=== PATIENT | male | born 1940 | race Caucasian/White ===

== ENCOUNTER 2023-05-12 13:36 | Emergency (ER) | payer MEDICARE, OTHER, SELFPAY ==
[2023-05-12] VITALS (19 sets, daily range): BP systolic 90–145; BP diastolic 47–89; BMI 22.1
[2023-05-12 14:30] LABS: % Basophils 0.2 % (0-2); % Eosinophils 0.3 % (0-6); % Immature Granulocytes 0.4 % (0-0.5); % Lymphocytes 9.1 % (20.5-51.1); % Monocytes 6.8 % (1.7-9.3); % Neutrophils 83.2 % (42.2-75.2); Absolute Immature Granulocytes 0.1 10^3/uL (0-0.05); Absolute Lymphocytes 1.1 10^3/uL (1.2-3.4); Absolute Monocytes 0.8 10^3/uL (0.1-0.6); Absolute Neutrophils 9.7 10^3/uL (1.4-6.5); Hematocrit 47.4 % (39.0-52.0); Hemoglobin 16.5 g/dL (13.0-18.0); Mean Corp Hgb Conc. 34.8 g/dL (33.0-37.0); Mean Corpuscular Hgb 32.7 pg (27.0-31.0); Mean Corpuscular Volume 93.9 fL (80.0-94.0); Mean Platelet Volume 11.9 fL (7.4-10.4); Nucleated Red Blood Cells % 0 % (-); Platelet Count 142 10^3/uL (130-400); Red Blood Cell Count 5.05 10^6/uL (4.70-6.10); Red Cell Dist. Width 13.2 % (11.5-14.5); White Blood Cell Count 11.6 10^3/uL (4.8-10.8)
--- NOTE | 2023-05-12 14:40 | ED.GENMED ---
History of Present Illness
General
Chief Complaint: Heart Rate Problem
Source: patient
Time Seen by Provider: 05/12/23 14:26
Travel History
Have you had any contact with someone who has COVID-19?: No
Do you have any symptoms of coronavirus? Fever > 100 degrees, chills, cough, shortness of breath, sore throat, loss of taste or smell, muscle aches, or headache?: No
History of Present Illness
History of Present Illness:
82-year-old male presents to the emergency room because he feels much more fatigued today than normal. Patient took his blood pressure and pulse at home and observe his heart rate was is 150. Patient went to his primary care doctor's office to get
checked and he was referred to the emergency room. Patient does have a history of atrial fibrillation. He does take Eliquis. He has been cheondoism with his Eliquis and has not missed any doses. Patient denies any chest pain.
Past History
Past History
ED Past Medical History: Cancer, HTN and Hypercholesterolemia
Social History
Tobacco: Non-smoker
Alcohol: None
Drug: None
Personal:
Living: with family
Phy Exam
Physical Exam
Physical Exam:
General: Awake, Alert, Oriented X3. No acute distress.
Vitals: Tachycardic
Head: Atraumatic
Eyes: Pupils equal, EOMI
Throat: Airway intact, no exudates
Neck: Trachea midline
Lungs: Clear and equal b/l
Heart: Tachycardic, regular rate, no murmurs
Abd: Soft, Nontender, No pulsatile mass
Neuro: Nonfocal
Skin: Warm, dry, no rash
Extremities: pulses equal b/l, no edema
Course
Orders/Labs/Results
Orders:
Orders
05/12/23
Electrocardiogram (*1) Stat
Comment: ALREADY DONE
05/12/23 13:53
Electrocardiogram (*1) Urgent
Reason for Study: Atrial Fibrillation
EKG- Treatment ONCE
05/12/23 14:18
Complete Blood Count/With Diff Urgent
Comprehensive Metabolic Panel Urgent
05/12/23 15:18
Propofol [Diprivan] 20 ml .ROUTE .STK-MED
05/12/23 16:41
Propofol [Diprivan] 45 mg IV NOW STA
Abnormal Lab Results
05/12/23
14:18
WBC 11.6 H 10^3/uL
(4.8-10.8)
MCH 32.7 H pg
(27.0-31.0)
MPV 11.9 H fL
(7.4-10.4)
Abs Immat Gran (auto) 0.1 H 10^3/uL
(0-0.05)
Absolute Neuts (auto) 9.7 H 10^3/uL
(1.4-6.5)
Absolute Lymphs (auto) 1.1 L 10^3/uL
(1.2-3.4)
Absolute Monos (auto) 0.8 H 10^3/uL
(0.1-0.6)
Neutrophils % 83.2 H %
(42.2-75.2)
Lymphocytes % 9.1 L %
(20.5-51.1)
Sodium 132 L mmol/L
(135-145)
BUN 24 H mg/dl
(9-20)
Glucose 107 H mg/dl
(70-99)
05/12/23 14:18
05/12/23 14:18
Vital Signs
Initial and Last Documented VS:
Initial Vital Signs
Pulse Resp BP Pulse Ox
146 18 145/89 98
05/12/23 13:50 05/12/23 13:50 05/12/23 13:50 05/12/23 13:50
Last Documented Vital Signs
Temp Pulse Resp BP Pulse Ox
98.5 F 63 9 126/70 97
05/12/23 16:25 05/12/23 18:30 05/12/23 16:10 05/12/23 18:20 05/12/23 18:30
Procedures
Cardioversion
Indication:: Afib
Synchronized?: Yes
Energy Used: 200 joules
Number of attempts: 1
Successful?: Yes
Complications: long post-conversion pause of 6 to 8 seconds, short periods of apnea w/o hypoxia
ASA Risk Score: Class II
Any reaction or bad outcome to prior sedation/anesthesia?: No history of a reaction
Sedation level to be attained: moderate
Chart and allergies reviewed: Yes
Patient reassessed prior to sedation: Yes
Time out completed at (validating right patient & procedure): 15:37
History of difficult intubation: No
Airway free of obstruction: Yes
Patient has a gag reflex: Yes
Patient is able to open mouth: Yes
Patient has no dentures: Yes
Patient has no loose teeth: Yes
Medication administered by Provider during Moderate Sedation: IV Propofol (mg)
Total dose administered: 45
Time drug administered: 15:38
Start Time: 15:37
Stop Time: 15:48
MDM/Problems Addressed
Differential Diagnosis Includes:
Atrial fibrillation, a flutter, sinus tachycardia, ventricular tachycardia
MDM/Problems Addressed:
Patient presents in believe is atrial flutter with rapid ventricular response. Heart rate is hanging right in the 1 45-1 50 range. QRS complexes are wide but he does have a history of a left bundle branch block. Patient has been taking Eliquis
continuously for greater than 2 weeks. Therefore is a good candidate for cardioversion. Patient consented cardioversion. He did have a long pause after a 200 J synchronized defibrillation. He did resume sinus rhythm with frequent PVCs. Patient
noted to have compensatory pauses after each PVC which is a bit long and sometimes this makes it look like he is bradycardic. However over the long-term his heart rate remains in the 50s. Patient able to ambulate without difficulty. Discussed
patient's presentation with cardiology. They feel its appropriate to discharge the patient with close outpatient follow-up. Will maintain metoprolol 12.5 mg.
*Pulse Oximetry
Patient hypoxic: no
*EKG
Interpreted by ED Provider?: Yes
Heart Rate: 146
Rate: tachycardiac
Rhythm: atrial flutter
QRS Pattern: left vent hypertrophy
Ischemia: non-specific ST changes
*Guide Tour Interpretation
Rate: tachycardiac
Interpretation: abnormal
Rhythm: atrial flutter
*Critical Care Note
Total Time (30-74mins, 75-104mins- exclusive of procedures): Not Applicable
ED Attending Note
-
Portions of this chart may have been created with voice recognition software.� Occasional wrong word or��sound alike� substitutions may have occurred due to the inherent limitations of voice recognition software.
Discharge Plan
Departure
Patient Disposition: Home (Routine Discharge)
Date of Disposition: 05/12/23
Time of Disposition: 18:45
Patient with high blood pressure during this ER visit?: Yes
Condition: Good
Discharge Problem:
Paroxysmal A-fib
Instructions: Atrial Fibrillation (DC), Chest Pain DCA Follow Up
Prescriptions:
No Action
atorvastatin 20 mg tablet
20 mg PO DAILY
therapeutic multivitamin Tablet
1 tab PO DAILY
ascorbic acid (vitamin C) [Vitamin C] 500 mg Tablet
500 mg PO DAILY
vitamin B complex Tablet
1 tab PO DAILY
cholecalciferol (vitamin D3) [Vitamin D3] 25 mcg (1,000 unit) Tablet
25 mcg PO DAILY
Eliquis 5 mg Tablet
5 mg PO BID Qty: 60 0RF
Patient Comments:
05/12/2023, pt. gets samples from their PCP.
lisinopril 5 mg Tablet
5 mg PO DAILY
metoprolol succinate 25 mg tablet extended release 24 hr
12.5 mg PO DAILY
Referrals:
Chano Gaxiola MD [Family Provider] -
Interventions
Interventions:
*Risk Screen - Suicide Last Done: 05/12/23 13:53
*General Assessment Last Done: 05/12/23 13:53
*Neglect/Abuse Screening Last Done: 05/12/23 13:53
ED- Fall Risk Assessment Last Done: 05/12/23 14:15
*ED COVID-19 Vaccine History Last Done: 05/12/23 13:53
ED- Cardiac Assessment Last Done: 05/12/23 14:16
ED- Pulmonary Assessment Last Done: 05/12/23 14:16
[2023-05-12 14:41] LABS: ALT (SGPT) 19 U/L (0-50); AST (SGOT) 29 U/L (17-59); Albumin 4.6 g/dl (3.5-5.0); Alkaline Phosphatase 69 U/L (38-126); Blood Urea Nitrogen 24 mg/dl (9-20); Calcium 9.4 mg/dl (8.4-10.2); Carbon Dioxide 23 mmol/L (22-30); Chloride 102 mmol/L (98-107); Estimated Creatinine Clearance 46 ml/min; Glucose 107 mg/dl (70-99); Potassium 4.8 mmol/L (3.5-5.1); Sodium 132 mmol/L (135-145); Total Bilirubin 1.1 mg/dl (0.2-1.3); Total Protein 7.2 g/dl (6.3-8.2); eGFR 55.53
[2023-05-12] MEDS: DIPRIVAN 45 MG IV (15:38)
== END 2023-05-12 19:27 | disposition home or self-care (01) ==
LOC: EMR 13:36
PROVIDERS: Emergency Medicine; EMERGENCY PHYSICIAN Emergency Medicine; FAMILY PHYSICIAN Internal Medicine Geriatric Medicine
DX: I48.0 Paroxysmal atrial fibrillation (principal); I10 Essential (primary) hypertension; E78.00 Pure hypercholesterolemia, unspecified; I48.92 Unspecified atrial flutter; Z79.01 Long term (current) use of anticoagulants
CPT/HCPCS: 99283; 92960; 96374; 80053; 85025; 93005

== ENCOUNTER 2023-06-04 07:42 | Emergency (ER) | payer MEDICARE, OTHER, SELFPAY ==
[2023-06-04] VITALS (23 sets, daily range): BP systolic 94–147; BP diastolic 50–99
--- NOTE | 2023-06-04 08:09 | ED.GENMED ---
History of Present Illness
General
Chief Complaint: Weakness
Source: patient and records
Exam Limitations: none
Time Seen by Provider: 06/04/23 07:56
Nursing documentation reviewed up to this point in time: agreed with
Travel History
Have you had any contact with someone who has COVID-19?: No
Do you have any symptoms of coronavirus? Fever > 100 degrees, chills, cough, shortness of breath, sore throat, loss of taste or smell, muscle aches, or headache?: No
History of Present Illness
History of Present Illness:
Patient is an 82-year-old male who presents to the emergency department feeling fatigued with shortness of breath and not able to sleep last night. About a week ago the patient noticed some shortness of breath and spoke with his traffic expert and
was put on a monitor. Patient does have a history of atrial fibrillation and required to be cardioverted in the past. Patient has been compliant with his Eliquis. Patient denies any chest pain but does admit to some indigestion. Patient denies
fever or chills, nasal congestion, sore throat or cough. Patient denies any abdominal pain, nausea, vomiting or diarrhea. Patient denies any recent illnesses or injuries. Patient has a appointment with his traffic expert on June 12. Patient noted
his heart rate was in the 150s this morning.
Past History
Past History
ED Past Medical History: Arrthythmia (Atrial fibrillation), Cancer (Prostate), HTN and Hypercholesterolemia
Social History
Tobacco: Non-smoker
Alcohol: None
Drug: None
Personal:
Living: with family
Review of Systems
Review of Systems
All Other Systems: ROS reviewed and negative except as documented in HPI and ROS
Constitutional: Reports fatigue; Denies fever or chills
EENT: Reports no symptoms
Respiratory: Reports trouble breathing; Denies cough
Cardiac: Reports palpitations; Denies chest pain, diaphoresis or syncope
ABD/GI: Reports no symptoms
: Reports no symptoms
Musculoskeletal: Reports no symptoms
Skin: Reports no symptoms
Neurological: Reports no symptoms
Hematologic/Lymphatic: Reports no symptoms
Phy Exam
Physical Exam
Physical Exam:
Physical Exam
General: mild distress, alert and appropriate, well nourished, well hydrated
HENT: Normocephalic, supple with no lymphadenopathy, no thyromegaly
Eyes: Clear sclera, conjuctiva without injection
Heart: irregular irregular rhythm and tachycardic rate. No S3, S4. No murmur. No NVD
Lungs: No respiratory distress, no stridor, lung sounds clear and equal bilaterally, chest wall symmetrical and nontender
Abdomen: Soft, nontender, BS good
Neuro: Alert and oriented x 3, CN II - XII intact, no motor focality, no cerebellar dysfunction
Skin: no rash
Psychiatric: well kept. interactive and cooperative
Extremities: No edema, cyanosis, tenderness, Good and equal peripheral pulses.
Scores
Heart Failure Risk
Heart Failure Risk Score: Not Applicable
Heart Score for Chest Pain Patients
STEMI patient?: Not applicable
Withdrawal Assessment of Alcohol
Withdrawal Assessment Completed?: Not applicable
Course
Orders/Labs/Results
Orders:
Orders
06/04/23 07:50
EKG [Electrocardiogram (*1)] Urgent
Reason for Study: Atrial Fibrillation
EKG- Treatment ONCE
06/04/23 08:39
Complete Blood Count/With Diff Urgent
Comprehensive Metabolic Panel Urgent
06/04/23 08:46
Propofol [Diprivan] 20 ml .ROUTE .STK-MED
06/04/23 09:14
Electrocardiogram (*1) Urgent
Reason for Study: Other
Other Reason for Exam: s/p cardioversion
06/04/23 09:15
EKG- Treatment ONCE
Abnormal Lab Results
06/04/23
08:39
RBC 4.65 L 10^6/uL
(4.70-6.10)
MCV 95.1 H fL
(80.0-94.0)
MCH 32.0 H pg
(27.0-31.0)
Plt Count 124 L 10^3/uL
(130-400)
MPV 13.0 H fL
(7.4-10.4)
Absolute Neuts (auto) 7.2 H 10^3/uL
(1.4-6.5)
Absolute Lymphs (auto) 0.6 L 10^3/uL
(1.2-3.4)
Neutrophils % 86.8 H %
(42.2-75.2)
Lymphocytes % 7.6 L %
(20.5-51.1)
Sodium 131 L mmol/L
(135-145)
Carbon Dioxide 17 L mmol/L
(22-30)
BUN 25 H mg/dl
(9-20)
Glucose 130 H mg/dl
(70-99)
06/04/23 08:39
06/04/23 08:39
Vital Signs
Initial and Last Documented VS:
Initial Vital Signs
Temp Pulse Resp BP Pulse Ox
98.2 F 131 16 147/99 98
06/04/23 07:47 06/04/23 07:47 06/04/23 07:47 06/04/23 07:47 06/04/23 07:47
Last Documented Vital Signs
Temp Pulse Resp BP Pulse Ox
98.8 F 79 17 115/77 98
06/04/23 10:43 06/04/23 10:35 06/04/23 10:35 06/04/23 10:35 06/04/23 10:35
Procedures
Cardioversion
Indication:: Afib
Performed by:: adriana
Synchronized?: Yes
Energy Used: 150 joules
Number of attempts: 1
Successful?: Yes
Complications: none
ASA Risk Score: Class III
Any reaction or bad outcome to prior sedation/anesthesia?: No history of a reaction
Sedation level to be attained: deep
Chart and allergies reviewed: Yes
Patient reassessed prior to sedation: Yes
Time out completed at (validating right patient & procedure): 09:09
History of difficult intubation: No
Airway free of obstruction: Yes
Patient has a gag reflex: Yes
Patient is able to open mouth: Yes
Patient has no dentures: Yes
Patient has no loose teeth: Yes
Medication administered by Provider during Moderate Sedation: IV Propofol (mg)
Total dose administered: 50
Time drug administered: 09:09
Start Time: 09:09
Stop Time: 09:19
*Radiology
Radiology exam reviewed: other (nsr)
*Pulse Oximetry
Patient hypoxic: no
*EKG
Interpreted by ED Provider?: Yes
EKG Intrepretation Date: 06/04/23
EKG Intrepretation Time: 08:15
Interpretation: abnormal
Comparison EKG: changes noted
Heart Rate: 146
Rate: tachycardiac
Rhythm: a-fib
[place]: left axis deviation
Interval: normal QT interval
QRS Pattern: left bundle branch block
Ischemia: non-specific ST changes
*Food Service Representative Interpretation
Rate: tachycardiac
Interpretation: abnormal
Heart Rate: 146
Rhythm: a-fib
*Critical Care Note
Total Time (30-74mins, 75-104mins- exclusive of procedures): Not Applicable
Update Note
Update Note:
Repeat EKG shows sinus rhythm with PACs. Patient will be discharged to follow-up with his traffic expert as scheduled.
ED Attending Note
-
Portions of this chart may have been created with voice recognition software.� Occasional wrong word or��sound alike� substitutions may have occurred due to the inherent limitations of voice recognition software.
Discharge Plan
Departure
Patient Disposition: Home (Routine Discharge)
Date of Disposition: 06/04/23
Time of Disposition: 09:23
Patient with high blood pressure during this ER visit?: No
Condition: Good
Covid-19: Not Applicable
Discharge Problem:
Atrial fibrillation with rapid ventricular response, Encounter for cardioversion procedure
Instructions: Atrial Fibrillation (DC), Cardioversion (DC), MODERATE SEDATION ADULT
Prescriptions:
No Action
atorvastatin 20 mg tablet
20 mg PO DAILY
therapeutic multivitamin Tablet
1 tab PO DAILY
ascorbic acid (vitamin C) [Vitamin C] 500 mg Tablet
500 mg PO DAILY
vitamin B complex Tablet
1 tab PO DAILY
cholecalciferol (vitamin D3) [Vitamin D3] 25 mcg (1,000 unit) Tablet
25 mcg PO DAILY
Eliquis 5 mg Tablet
5 mg PO BID Qty: 60 0RF
Patient Comments:
05/12/2023, pt. gets samples from their PCP.
lisinopril 5 mg Tablet
5 mg PO DAILY
metoprolol succinate 25 mg tablet extended release 24 hr
12.5 mg PO DAILY
Referrals:
Ramiro Burks MD [Active] - Keep scheduled appt
Chano Gaxiola MD [Family Provider] - As needed
Activity Restrictions/Additional Instructions:
Continue present medications and therapy
Interventions
Interventions:
*Risk Screen - Suicide Last Done: 06/04/23 07:47
*General Assessment Last Done: 06/04/23 07:47
*Neglect/Abuse Screening Last Done: 06/04/23 07:47
ED- Fall Risk Assessment Last Done: 06/04/23 08:45
*ED COVID-19 Vaccine History Last Done: 06/04/23 08:45
*Nursing Disposition Last Done: 06/04/23 11:12
ED- Cardiac Assessment Last Done: 06/04/23 08:45
ED- Neurological Assessment Last Done: 06/04/23 11:13
ED- Pulmonary Assessment Last Done: 06/04/23 08:45
Discharge Date and Time
Discharge Date/Time: 06/04/23 11:13
Print Language: MALIAN
[2023-06-04 08:59] LABS: % Basophils 0.1 % (0-2); % Eosinophils 0.1 % (0-6); % Immature Granulocytes 0.4 % (0-0.5); % Lymphocytes 7.6 % (20.5-51.1); % Neutrophils 86.8 % (42.2-75.2); Absolute Lymphocytes 0.6 10^3/uL (1.2-3.4); Absolute Monocytes 0.4 10^3/uL (0.1-0.6); Absolute Neutrophils 7.2 10^3/uL (1.4-6.5); Hematocrit 44.2 % (39.0-52.0); Hemoglobin 14.9 g/dL (13.0-18.0); Mean Corp Hgb Conc. 33.7 g/dL (33.0-37.0); Mean Corpuscular Volume 95.1 fL (80.0-94.0); Nucleated Red Blood Cells % 0 % (-); Platelet Count 124 10^3/uL (130-400); Red Blood Cell Count 4.65 10^6/uL (4.70-6.10); Red Cell Dist. Width 13.4 % (11.5-14.5); White Blood Cell Count 8.3 10^3/uL (4.8-10.8)
[2023-06-04 09:08] LABS: ALT (SGPT) 44 U/L (0-50); AST (SGOT) 35 U/L (17-59); Albumin 4.2 g/dl (3.5-5.0); Alkaline Phosphatase 64 U/L (38-126); Blood Urea Nitrogen 25 mg/dl (9-20); Calcium 9.3 mg/dl (8.4-10.2); Carbon Dioxide 17 mmol/L (22-30); Chloride 105 mmol/L (98-107); Glucose 130 mg/dl (70-99); Potassium 4.4 mmol/L (3.5-5.1); Sodium 131 mmol/L (135-145); Total Bilirubin 1.3 mg/dl (0.2-1.3); Total Protein 6.6 g/dl (6.3-8.2); eGFR > 60.00
== END 2023-06-04 11:13 | disposition home or self-care (01) ==
LOC: EMR 07:42
PROVIDERS: EMERGENCY PHYSICIAN Emergency Medicine; FAMILY PHYSICIAN Internal Medicine Geriatric Medicine
DX: I48.91 Unspecified atrial fibrillation (principal); I10 Essential (primary) hypertension; E78.00 Pure hypercholesterolemia, unspecified; Z79.01 Long term (current) use of anticoagulants
CPT/HCPCS: 99283; 92960; 80053; 85025; 93005

== ENCOUNTER → 2023-10-04 10:15 | Outpatient (REF) | payer MEDICARE, OTHER, SELFPAY ==
[2023-10-04 10:49] LABS: % Basophils 0.3 % (0-2); % Eosinophils 1.2 % (0-6); % Immature Granulocytes 0.2 % (0-0.5); % Lymphocytes 17.9 % (20.5-51.1); % Monocytes 8.8 % (1.7-9.3); % Neutrophils 71.6 % (42.2-75.2); Absolute Eosinophils 0.1 10^3/uL (0-0.7); Absolute Lymphocytes 1.1 10^3/uL (1.2-3.4); Absolute Monocytes 0.5 10^3/uL (0.1-0.6); Absolute Neutrophils 4.3 10^3/uL (1.4-6.5); Hematocrit 41.9 % (39.0-52.0); Hemoglobin 14.6 g/dL (13.0-18.0); Mean Corp Hgb Conc. 34.8 g/dL (33.0-37.0); Mean Corpuscular Hgb 31.9 pg (27.0-31.0); Mean Corpuscular Volume 91.7 fL (80.0-94.0); Mean Platelet Volume 12.1 fL (7.4-10.4); Nucleated Red Blood Cells % 0 % (-); Platelet Count 136 10^3/uL (130-400); Red Blood Cell Count 4.57 10^6/uL (4.70-6.10)
[2023-10-04 11:00] LABS: INR 1.26; PT 15.7 Sec (11.4-14.6)
[2023-10-04 11:04] LABS: ALT (SGPT) 19 U/L (0-50); AST (SGOT) 29 U/L (17-59); Albumin 4.7 g/dl (3.5-5.0); Alkaline Phosphatase 61 U/L (38-126); Blood Urea Nitrogen 17 mg/dl (9-20); Calcium 9.4 mg/dl (8.4-10.2); Carbon Dioxide 29 mmol/L (22-30); Chloride 99 mmol/L (98-107); Glucose 90 mg/dl (70-99); Magnesium 1.9 mg/dl (1.6-2.3); Potassium 4.4 mmol/L (3.5-5.1); Sodium 135 mmol/L (135-145); Total Bilirubin 1.3 mg/dl (0.2-1.3); eGFR > 60.00
== END ==
LOC: SDSPAT 10:15
PROVIDERS: ATTENDING PHYSICIAN Internal Medicine Cardiovascular Disease; FAMILY PHYSICIAN Internal Medicine Geriatric Medicine; OTHER PHYSICIAN Internal Medicine Cardiovascular Disease
DX: Z01.818 Encounter for other preprocedural examination (principal); I48.0 Paroxysmal atrial fibrillation
CPT/HCPCS: 36415; 75572; 80053; 83735; 85025; 85610; 86850; 86900; 86901; 93005; Q9967

== ENCOUNTER 2023-10-19 08:32 | Day surgery (SDC) | payer MEDICARE, OTHER, SELFPAY ==
[2023-10-04 10:25] VITALS: BMI 22.6
[2023-10-19] VITALS (10 sets, daily range): BP systolic 120–144; BP diastolic 47–59
--- NOTE | 2023-10-19 11:45 | ITS.CL.ABL ---
Registered Nurse Nursery - Ablation
Ablation
Procedure Report:
Primary Car Painter: Ramiro Burks MD
Procedure Date: 10/19/2023
Patient History:
Patient is a pleasant 82-year-old male with past medical history significant for sleep apnea, hypercholesterolemia, low bundle-branch block, hypertension, mitral valve insufficiency, aortic valve insufficiency, asymptomatic bradycardia, diastolic
heart failure, paroxysmal symptomatic atrial fibrillation.
See H&P for complete details.
Indication:
Symptomatic paroxysmal atrial fibrillation
Early recurrence of AF following cardioversion x 3
Arrhythmia Specific History:
Prior Medical Therapies for Rate and Rhythm Control:
X Beta-myron
[ ] Calcium channel-myron
[ ] Amiodarone
[ ] Dronederone
[ ] Sotalol
[ ] Flecainide
[ ] Dofetilide
X Options limited by bradycardia
[ ] Options limited by comorbid renal disease
Prior Procedural Therapies for AF/AFL:
X Cardioversion
[ ] Pulmonary Vein Isolation
[ ] Posterior Wall Isolation
[ ] Additional lines (Specify)
[ ] Surgical Valerio-MAZE or PVI (Specify)
Procedure Performed:
[ ] AF ablation procedure (36959) -- includes LA/CS pacing, trans-septal, 3D mapping, + ICE
[ ] +IV drug (47988)
[ ] +Other Arrhythmia (24447)
[ ] +Other AF Line/ablation (15059)
Additional invoice machine operator: Dr Kane Burton
Risks and expected recovery has been explained in detail. Alternative options have been explored, and in a shared-decision making fashion we have decided that this was the most appropriate procedure.
Method
NPO status confirmed. Grounding pad applied. Defibrillator pads applied. Continuous surface ECG, pulse oximetry, and blood pressure were monitored. Procedure was performed under general anesthesia, with anesthesia services.
Both groins were clipped, prepped with Chloraprep, and draped in sterile fashion. Time out was called. Local anesthesia administered with bupivacaine. The right and left femoral veins were accessed for catheter placement, using ultrasound guidance,
micro-puncture needle/wire, and modified seldinger technique. 3 sheaths were placed. The following catheters were used:
[ ] Tacticath SE (D/F Curve) ablation catheter
X Viewflex 9Fr ICE catheter
X Inquiry decapolar 6Fr diagnostic catheter
[ ] CRD Hex 6Fr
[ ] [employer] Front Advance Cryoballoon ([ ]28mm[ ]23mm)
[ ] Achieve Advance mapping catheter ([ ]15mm[ ]20mm)
X FlexCath Contour 10 Fr with PulseSelect PFA Catheter
X Advisor HD Grid Mapping Catheter, SE
[ ] [employer] AcuNav 8 Fr ICE catheter
[ ]Other: [ ]
Intracardiac ultrasound (ICE) was carefully advanced into the right atrium to guide sheath placement over a J-wire, catheter placement, guide trans-septal puncture, identify potential complications, identify anatomic structures and ensure proper
contact between ablation catheter and tissue. A trace pericardial effusion was noted in the posterior/basal portion of the LV at the start of the procedure. This remained unchanged through the entirety of the case and at completion.
Heparin was given prior to trans-septal puncture. Heparin was given to achieve and maintain a target ACT of 300-400 seconds throughout the procedure.
Trans-septal access was performed under ICE guidance. The trans-septal puncture was performed with a SafeSept wire through a Brockenbrough needle assembly through the steerable sheath. The wire was visualized as it entered the LSPV and system
advanced under ICE guidance and fluoroscopy into the LA. The Brockenbrough needle assembly, SafeSept wire and sheath dilator were removed under negative pressure. LA pressure was measured and recorded.
ICE and 3D mapping was performed to identify relevant cardiac structures. A careful 3D map was created to assess for regions of low-voltage and abnormal electrogram signals using HD grid mapping catheter and PulseSelect catheter. Additional mapping
was performed as outlined below.
Prior to ablation, glycopyrrolate was provided. PulseSelect catheter was advanced over J-wire to the ostium of each vein. Pulmonary vein isolation was performed with ostial and antral lesions in a circumferential manner. Contact was visualized via
EAM, ICE, fluoroscopy, and EGM signals. Following completion of ablation lesions, a post-ablation voltage/activation map was performed in sinus rhythm. Entrance and exit block were confirmed for each vein. During baseline electrophysiology study,
patient was noted with to develop an AT. Entrainment attempted however the arrhythmia degenerated into likely AF. Sinus rhythm was restored with a 200J synchronized DCCV. There was no recurrence of arrhythmia for the remainder of the procedure.
Catheter and sheath were removed from the left atrium and post-ablation intracardiac echo evaluation was consistent with pre-ablation with no changes and no pericardial effusion and there is no left atrial thrombus or left ventricle thrombus seen.
Electrophysiology study was performed. Hemostasis was obtained with figure of 8 stitch for each groin and with manual pressure. Protamine was used for reversal.
Estimated Blood Loss
5 mL
Complications
None
Fluoroscopy: 3.4 minutes; 6.9 mGy
Baseline Intervals:
Rhythm: SB
KY: 148 ms
QRS: 202 ms
QT: 557 ms
A-A: 1327 ms
R-R: 1327 ms
Post-Procedure Intervals:
[place]: 148 ms
QRS: 202 ms
QT: 547 ms
AVWB: 330 ms
Recommendations
- Bedrest with straight-leg precautions as ordered
- Anticipate same day discharge if patient meeting clinical metrics
- Resume home medications as indicated
- Ok to resume anticoagulation tonight if patient and groin sites stable
- PPI daily for 30 days
- Plan for follow-up in office with Dr Burks
Trey Diego DO
Clinical Cardiac Injection Moulding Machine Operator
cc: Ramiro Burks MD; Chano Gaxiola MD
[2023-10-19 13:10] LABS: ACT-LR - POC 374 Seconds (116-155)
[2023-10-19 13:30] LABS: ACT-LR - POC 384 Seconds (116-155)
[2023-10-19 14:12] LABS: ACT-LR - POC 165 Seconds (116-155)
--- NOTE | 2023-10-19 16:53 | W.PN.UPDATE ---
Update Note
Progress Note Update
82 yo WM s/p PVI (same day). He feels good, no cp, sob, gracia clears, b/l groins F08 intact, EKG SB with PVC's and LBBB. He will continue OAC Eliquis dose at 8pm at home. He will continue metoprolol and will add PPI for 30 days. Activity restrictions
reviewed. He will f/u Dr. Burks in 2 mo. He is for d/c home after 7pm if groins stable and voiding.
[2023-10-20 12:51] LABS: ACT-LR - POC > 397 Seconds (116-155)
== END 2023-10-19 18:53 | disposition home or self-care (01) ==
LOC: CATH 08:32
PROVIDERS: ATTENDING PHYSICIAN Internal Medicine Cardiovascular Disease; FAMILY PHYSICIAN Internal Medicine Geriatric Medicine; OTHER PHYSICIAN Internal Medicine Cardiovascular Disease
DX: I48.0 Paroxysmal atrial fibrillation (principal); I08.0 Rheumatic disorders of both mitral and aortic valves; I11.0 Hypertensive heart disease with heart failure; I50.32 Chronic diastolic (congestive) heart failure; I44.7 Left bundle-branch block, unspecified; E78.00 Pure hypercholesterolemia, unspecified; G47.33 Obstructive sleep apnea (adult) (pediatric); Z85.46 Personal history of malignant neoplasm of prostate; Z79.01 Long term (current) use of anticoagulants
CPT/HCPCS: C1732; C1894; C1733; C1769; C1766; C1759; 76937; 85347; 86900; 86901; 93005; 93656

== ENCOUNTER → 2024-01-18 16:08 | Outpatient (REF) | payer MEDICARE, OTHER, SELFPAY | LOC: RAD 16:08 | PROVIDERS: ATTENDING PHYSICIAN Nurse Practitioner Family | DX: M25.552 Pain in left hip (principal) | CPT/HCPCS: 73523 ==

== ENCOUNTER 2024-01-25 12:58 | Inpatient (IN) | payer MEDICARE, OTHER, SELFPAY ==
[2024-01-25] VITALS (27 sets, daily range): BP systolic 104–146; BP diastolic 62–92; PULSE 95; BMI 20.9
--- NOTE | 2024-01-25 09:25 | ED.GENMED ---
History of Present Illness
General
Chief Complaint: Heart Rate Problem
Source: patient
Exam Limitations: none
Time Seen by Provider: 01/25/24 09:09
Nursing documentation reviewed up to this point in time: agreed with
History of Present Illness
History of Present Illness:
83-year-old male presents emergency department due to heart racing. He has noticed that since last night. He has a history of atrial fibrillation, and had an ablation in October. He notes he had a dental procedure, tooth extraction last week and
was off Eliquis for 5 days.
Past History
Past History
ED Past Medical History: Arrthythmia (Atrial fibrillation), Cancer (Prostate), HTN and Hypercholesterolemia
ED Past Surgical History: Cardiac (Cardiac ablation)
Social History
Tobacco: Non-smoker
Alcohol: None
Drug: None
Personal:
Living: with family
Review of Systems
Review of Systems
Allergies reviewed?: Yes
All Other Systems: Not applicable
Constitutional: Reports no symptoms
EENT: Reports no symptoms
Respiratory: Reports no symptoms
Cardiac: Reports palpitations
ABD/GI: Reports no symptoms
: Reports no symptoms
Musculoskeletal: Reports no symptoms
Skin: Reports no symptoms
Neurological: Reports no symptoms
Endocrine: Reports no symptoms
Hematologic/Lymphatic: Reports no symptoms
Psychiatric: Reports no symptoms
Phy Exam
Physical Exam
Physical Exam:
Physical Exam
General: no apparent distress, not acutely ill
Neck: supple. no meningeal signs. normal posterior pharynx
Heart: s1/s2 tachycardia, no murmur. equal radial
pulses.
HEENT: Pupils equal round reactive to light, EOMI
Lungs: no acute respiratory distress. clear bilaterally
Abdomen: normal bowel sounds. not tender. no CVAT
Neuro: alert and oriented. no focal neurological deficits cranial nerves II through XII intact
Skin: no rash
Psychiatric: well kept. interactive and cooperative
Extremities: no edema. no calf tenderness. negative homans. good distal pulses
Course
Orders/Labs/Results
Orders:
Orders
01/25/24 08:56
Electrocardiogram (*1) Urgent
Reason for Study: Chest Pain
EKG- Treatment ONCE
01/25/24 09:20
IV Insert/Care/Rem.- Treatment PRN
01/25/24 09:23
Complete Blood Count/With Diff Urgent
Comprehensive Metabolic Panel Urgent
Magnesium Urgent
TSH Urgent
01/25/24 09:24
Diltiazem 125 mg/125 ml Nss [Cardizem] 125 mg in 125 ml IV NOW
Initial dose in mg/hr, then titrate:: 5
Titrate to keep:: Heart rate 80-100 bpm
Titrate by mg/hr:: 5 mg/hr
Frequency of titrations (minutes):: 15
Maximum dose in mg/hr:: 15
Diltiazem HCl [Cardizem] 5 mg IV NOW STA
Abnormal Lab Results
01/25/24
09:23
RBC 4.54 L 10^6/uL
(4.70-6.10)
MCH 32.4 H pg
(27.0-31.0)
MPV 12.0 H fL
(7.4-10.4)
Neutrophils % 77.6 H %
(42.2-75.2)
Lymphocytes % 15.5 L %
(20.5-51.1)
Sodium 134 L mmol/L
(135-145)
Carbon Dioxide 19 L mmol/L
(22-30)
Glucose 160 H mg/dl
(70-99)
01/25/24 09:23
01/25/24 09:23
Vital Signs
Initial and Last Documented VS:
Initial Vital Signs
Pulse Resp BP Pulse Ox
129 18 146/92 96
01/25/24 09:01 01/25/24 09:01 01/25/24 09:01 01/25/24 09:01
Last Documented Vital Signs
Temp Pulse Resp BP Pulse Ox
98.9 F 79 15 115/63 95
01/25/24 09:34 01/25/24 10:15 01/25/24 10:15 01/25/24 10:10 01/25/24 10:15
MDM/Problems Addressed
Differential Diagnosis Includes:
Atrial fibrillation, atrial flutter
MDM/Problems Addressed:
83-year-old male with rapid atrial flutter. Patient is not a candidate for cardioversion as he stopped his Eliquis last week for 5 days.
Chronic conditions affecting care: Arrhythmia
Acute Exacerbation and/or Progression of Chronic Illness: Arrhythmia
*Pulse Oximetry
Patient hypoxic: no
*EKG
Interpreted by ED Provider?: Yes
EKG Intrepretation Date: 01/25/24
EKG Intrepretation Time: 09:00
Interpretation: abnormal
Comparison EKG: changes noted
Heart Rate: 126
Rate: tachycardiac
Rhythm: atrial flutter
Valders: normal axis
Interval: normal interval
QRS Pattern: normal QRS
Ischemia: no ischemia
*Manager Msw Interpretation
Rate: tachycardiac
Interpretation: abnormal
Heart Rate: 126
Rhythm: atrial flutter
*Critical Care Note
Total Time (30-74mins, 75-104mins- exclusive of procedures): 30
comment:
Critical care statement: A total of 30 minutes of critical care time was provided for this patient. This includes management of unstable vital signs, evaluation of the patient at bedside, reviewing the patient's pertinent medical records, discussion
with consultants, review of old EKGs and review of pertinent medical records. This time with separate from time utilized to perform the aforementioned documented procedures
Data Reviewed
Review of Other/Old Records Reveals: Operative Reports (Cardiac ablation by Dr. Mchugh October 2023)
Source: records
Patient Management
Social determinants of health affecting care: Living situation and Strong social support
Discussion with other providers: Hospitalist
Escalation/DeEscalation of care consider admission/obs:
Admit indicated
Update Note
Update Note:
Monitor now appears rapid atrial fibrillation. Continue diltiazem. Admit to hospitalist.
ED Attending Note
-
Portions of this chart may have been created with voice recognition software.� Occasional wrong word or��sound alike� substitutions may have occurred due to the inherent limitations of voice recognition software.
Discharge Plan
Departure
Patient Disposition: Admit
Date of Disposition: 01/25/24
Time of Disposition: 10:21
Admit to: IVU
Presentation/result/management discussed w/ accepting MD/DO: Hospitalist
Patient with high blood pressure during this ER visit?: Yes
Condition: Fair
Discharge Problem:
Atrial fibrillation with rapid ventricular response
Prescriptions:
No Action
atorvastatin 20 mg tablet
20 mg PO DAILY
therapeutic multivitamin Tablet
1 tab PO DAILY
ascorbic acid (vitamin C) [Vitamin C] 500 mg Tablet
500 mg PO DAILY
vitamin B complex Tablet
1 tab PO DAILY
cholecalciferol (vitamin D3) [Vitamin D3] 25 mcg (1,000 unit) Tablet
25 mcg PO DAILY
lisinopril 5 mg Tablet
5 mg PO DAILY
metoprolol succinate 25 mg tablet extended release 24 hr
12.5 mg PO HS
coenzyme Q10 [CoQ-10] 100 mg Capsule
100 mg PO DAILY
amoxicillin 500 mg Capsule
500 mg PO TID
acetaminophen [Tylenol] 325 mg Tablet
650 mg PO QIDPRN PRN (Reason: mild pain )
pantoprazole [Protonix] 40 mg tablet,delayed release (DR/EC)
40 mg PO DAILY
Eliquis 5 mg tablet
5 mg PO BID
Patient Comments:
01/25/24- pt. gets samples from their PCP.
Referrals:
Chano Gaxiola MD [Family Provider] -
Interventions
Interventions:
*Risk Screen - Suicide Last Done: 01/25/24 09:01
*General Assessment Last Done: 01/25/24 09:01
*Neglect/Abuse Screening Last Done: 01/25/24 09:01
ED- Fall Risk Assessment Last Done: 01/25/24 09:33
*ED COVID-19 Vaccine History Last Done: 01/25/24 09:01
ED- Cardiac Assessment Last Done: 01/25/24 09:33
ED- Pulmonary Assessment Last Done: 01/25/24 09:33
Discharge Date and Time
Print Language: FAROESE
[2024-01-25 09:31] LABS: % Basophils 0.1 % (0-2); % Eosinophils 0.4 % (0-6); % Immature Granulocytes 0.3 % (0-0.5); % Lymphocytes 15.5 % (20.5-51.1); % Monocytes 6.1 % (1.7-9.3); % Neutrophils 77.6 % (42.2-75.2); Absolute Lymphocytes 1.2 10^3/uL (1.2-3.4); Absolute Monocytes 0.5 10^3/uL (0.1-0.6); Absolute Neutrophils 5.9 10^3/uL (1.4-6.5); Hematocrit 42.6 % (39.0-52.0); Hemoglobin 14.7 g/dL (13.0-18.0); Mean Corp Hgb Conc. 34.5 g/dL (33.0-37.0); Mean Corpuscular Hgb 32.4 pg (27.0-31.0); Mean Corpuscular Volume 93.8 fL (80.0-94.0); Nucleated Red Blood Cells % 0 % (-); Platelet Count 149 10^3/uL (130-400); Red Blood Cell Count 4.54 10^6/uL (4.70-6.10); Red Cell Dist. Width 13.5 % (11.5-14.5); White Blood Cell Count 7.6 10^3/uL (4.8-10.8)
[2024-01-25] MEDS: CARDIZEM 5 MG IV (09:40)
[2024-01-25] MEDS: CARDIZEM 125 IV (09:41)
[2024-01-25 09:43] LABS: ALT (SGPT) 26 U/L (0-50); AST (SGOT) 38 U/L (17-59); Albumin 4.3 g/dl (3.5-5.0); Alkaline Phosphatase 56 U/L (38-126); Blood Urea Nitrogen 20 mg/dl (9-20); Calcium 8.9 mg/dl (8.4-10.2); Carbon Dioxide 19 mmol/L (22-30); Chloride 100 mmol/L (98-107); Estimated Creatinine Clearance 56 ml/min; Glucose 160 mg/dl (70-99); Magnesium 1.8 mg/dl (1.6-2.3); Potassium 4.5 mmol/L (3.5-5.1); Sodium 134 mmol/L (135-145); Total Protein 6.6 g/dl (6.3-8.2); eGFR > 60.00
[2024-01-25 10:13] LABS: TSH 2.96 uIU/ml (0.47-4.68)
--- NOTE | 2024-01-25 11:42 | HPS.HSE ---
Family Physician
-
Family Physician: Chano Gaxiola
Chief Complaint
-
Shortness of breath, tachycardia
History of Present Illness
83 y/o male with past medical history of Atrial fibrillation, Hypertension, Hyperlipidemia, Left bundle branch block, HFpEF, Prostate cancer > 20 years s/p robotic resection, History of vertigo with labyrinthitis, Obstructive sleep apnea, compliant
with CPAP, History of retinal detachment/retinal tear of right eye and Vitamin D deficiency presented with shortness of breath and tachycardia for one day. Patient said that he felt more lethargic yesterday, was more shortness of breath when
climbing stairs, and noticed that one his Apple watch, he was tachycardic with heart rate around 125 beats per minute. Patient said that 1 week ago, his Eliquis was held for a tooth extraction, which he had done 5 days ago (his Dentist is
Dinora Avila in [place], per patient), he then resumed his Eliquis the day after the procedure with no bleeding after resuming the Eliquis. He denied any fever, chest pain, dizziness, palpitations or any other symptoms or complaints.
Medical History
Past Medical History
Past Medical History: Reports Other (As per HPI above)
Past Surgical History: Reports Cardiac (Cardiac Ablation) and Other (Dental: tooth extraction; also, prostate, appendix)
Social History
Tobacco: Non-smoker
Alcohol: Occasional
Drug: None
Family History
Family History: Not pertinent
Allergies / Home Medications
Allergies reflects when Allergies were last updated in [employer].
Home Medications with original date entered in [employer]
Allergy/Medication List:
Allergies
Allergy/AdvReac Type Severity Reaction Status Date / Time
No Known Allergies Allergy Verified 10/19/23 08:47
Home Medications
ascorbic acid (vitamin C) 500 mg tablet (Vitamin C) 500 mg PO DAILY Supplement 05/13/22
atorvastatin 20 mg tablet 20 mg PO DAILY High cholesterol 05/13/22
cholecalciferol (vitamin D3) 25 mcg (1,000 unit) tablet (Vitamin D3) 25 mcg PO DAILY Supplement 05/13/22
therapeutic multivitamin 1 tab PO DAILY Supplement 05/13/22
vitamin B complex 1 tab PO DAILY Supplement 05/13/22
lisinopril 5 mg tablet 5 mg PO DAILY Blood Pressure 05/12/23
metoprolol succinate 25 mg tablet,extended release 24 hr 12.5 mg PO HS Blood Pressure 05/12/23
coenzyme Q10 100 mg capsule (CoQ-10) 100 mg PO DAILY Supplement 09/30/23
acetaminophen 325 mg tablet (Tylenol) 650 mg PO QIDPRN PRN mild pain 01/25/24
amoxicillin 500 mg capsule 500 mg PO TID infection 01/25/24
apixaban 5 mg tablet (Eliquis) 5 mg PO BID Blood Clot Prevention/Tx 01/25/24
pantoprazole 40 mg tablet,delayed release (Protonix) 40 mg PO DAILY Gastrointestinal Issue 01/25/24
Review of Systems
-
A 12 point ROS was completed and negative except as noted: Yes
Physical Exam
Vital Signs
Vital Signs
Temp Pulse Resp BP Pulse Ox
98.9 F 81 11 126/90 94
01/25/24 09:34 01/25/24 11:15 01/25/24 11:15 01/25/24 11:00 01/25/24 10:45
Physical Exam
General: No Apparent Distress, Comfortable and Conversant
HEENT: NormoCephalic and Moist mucous membranes
Respiratory: Clear
Cardiac: S1/S2, Irregular Rhythm and Tachycardia
GI: Soft, Non Tender and Normal Bowel Sounds
Musculoskeletal: No Cyanosis and No Edema
Skin: Warm and Dry
Neuro: Awake, Alert and AO x 3
Psych: Calm and Intact Judgment/Insight
Laboratory Results
-
01/25/24 09:23
11/20/24 09:23
Laboratory Results
Total Bilirubin 1.0 mg/dl (0.2-1.3) 01/25/24 09:23
AST 38 U/L (17-59) 01/25/24 09:23
ALT 26 U/L (0-50) 01/25/24 09:23
Alkaline Phosphatase 56 U/L (38-126) 01/25/24 09:23
Impression/Plan
-
Assessment/Plan
Presentation with tachycardia, more SOB on exertion than usual
Concern for A-Fib/A-Flutter with Rapid Ventricular Response
Atrial fibrillation on home Eliquis
-Continue Cardizem Drip
-Continue Eliquis
-Given patient is not hypoxic, has no chest pain, and has been compliant with Eliquis, this is unlikely to be PE
-Monitor in IVU
-Check CXR
-Check proBNP
-Check troponins
-Cardiology consulted, appreciate evaluation and recommendations
HFpEF
-Continue home Toprol XL, Lisinopril
-Daily weights, I's and O's
-Checking proBNP to see whether shortness of breath from CHF
'Increased soft tissue density overlying the LEFT greater trochanter suspicious for underlying fluid collection/bursitis' (as per recent hip x-ray from 01/18/24)
Left Lateral Hip Pain following golf
-Currently no leukocytosis or fever
-Continue to monitor
Hypertension
-Continue Lisinopril
-Continue Toprol XL
Hyperlipidemia
-Continue Atorvastatin
Left bundle branch block
Prostate cancer > 20 years s/p robotic resection
History of vertigo with labyrinthitis
Obstructive sleep apnea, compliant with CPAP -- patient stated someone will bring his home CPAP to use while in hospital
History of retinal detachment
Vitamin D deficiency -- continue home Vitamin D3
Code Status: Full Code
DVT Prophylaxis: Eliquis
[2024-01-25 14:19] LABS: Troponin I 0.048 ng/ml
--- NOTE | 2024-01-25 15:13 | CM ---
Chart reviewed. Patient is independent of ADLS, lives with his in a [address], 0 CONTRERAS, 0 DME. Plan is for the patient to return home. CM to follow
[2024-01-25 15:24] LABS: NT-proBNP 9220 pg/ml
--- NOTE | 2024-01-25 15:36 | CON.CAR ---
Addendum entered and electronically signed by Trey Diego DO 01/25/24 17:42:
I saw and examined the patient.
The Rehabilitation Worker's note was reviewed and I agree with the note.
Comment:
GENERAL: no acute distress
EYE: sclera anicteric
NECK: Supple, no JVD, no carotid bruit appreciated
ENT: normal nose, moist mucosal membranes
CARDIAC: Irregularly irregular, +S1/S2, no murmur, rubs, or gallops
CHEST/PULMONARY: Normal effort, bibasilar crackles
ABDOMEN: Soft, without focal tenderness or distention
NEUROLOGICAL: Alert and oriented x3
SKIN: Warm and dry, no rash
PSYCH: Normal and appropriate interaction.
Patient with early recurrence during blanking period following PVI (pulsed field PVI only, [employer], pulse elect) 10/19/2023. Likely early recurrence in the setting of multiple stressing factors including dehydration, hip procedure, tooth
extraction, possible acute on chronic heart failure with preserved ejection fraction with BNP noted to be 9220.
Gentle IV diuresis, n.p.o. after midnight for EVARISTO/DCCV given that patient has been off oral anticoagulation for greater than 48 hours
Patient wishing to remain conservative therapy for now, will adjust medical therapy discontinue beta-myron start oral diltiazem following cardioversion
Monitor intake and output, daily weight, renal function
Further outpatient discussion regarding next steps in management of if recurrent atrial fibrillation outside blanking period
Original Note:
Consultation
Consultation Request
Date/Time Consultation Performed: 01/25/24
Requesting Provider: Dr. Smallwood
Performing Provider: Aliya Irene PA-C for Dr. Diego
Reason for Consultation: afib
Medical History
-
Chief Complaint: tachycardia
History of Present Illness:
Patient is a 81 yo M with PMH of HTN, HLD, LETICIA on CPAP, paroxysmal atrial fibrillation status post cardioversion x 3 and most recently PVI 10/2013. He is maintained on chronic Eliquis and Toprol 12.5 mg daily. He has chronic left bundle branch
block as well as sinus bradycardia. He reports he had a tooth extracted last week and was off of his Eliquis from Tuesday morning to Tuesday p.m. Also with recent hip bursitis, and concern for dehydration with playing golf this week. Yesterday
while going up the steps he felt like he was breathing harder than normal and noted his heart rate to be tachycardic in the 120s. He put on his Apple Watch which was persistently in the 120s which did not improve with resting and therefore came to
the ER for further evaluation today. On arrival was noted to be in A-fib with RVR. He denies lower extremity edema, shortness of breath at rest, abdominal bloating, weight gain. He is not on a water pill as an outpatient. proBNP 9220. No chest
pain. cardiology consulted for evaluation.
PMH:
PAF s/p PVI 10/2023
Chronic HFpEF
mild to mod AI
mild to mod MR
Chronic LBBB
sinus bradycardia
History of vasovagal syncope
HTN
HLD
LETICIA on CPAP
prostate cancer s/p prostatectomy
Retinal tear of R eye
Past Medical History
Past Medical History: Other (in HPI)
Social History
Tobacco: Non-Smoker
Alcohol: Daily (1-2 glasses of wine)
Personal:
Living: With Family
Employment: Retired
Family History
Family History: CAD (with DE in father at 60)
Allergies / Home Medications
Allergy/AdvReac Type Severity Reaction Status Date / Time
No Known Allergies Allergy Verified 10/19/23 08:47
�Medication �Instructions �Recorded �Confirmed �Type
ascorbic acid (vitamin C) 500 mg 500 mg PO DAILY Supplement 05/13/22 01/25/24 History
tablet (Vitamin C)
atorvastatin 20 mg tablet 20 mg PO DAILY High cholesterol 05/13/22 01/25/24 History
cholecalciferol (vitamin D3) 25 25 mcg PO DAILY Supplement 05/13/22 01/25/24 History
mcg (1,000 unit) tablet (Vitamin
D3)
therapeutic multivitamin 1 tab PO DAILY Supplement 05/13/22 01/25/24 History
vitamin B complex 1 tab PO DAILY Supplement 05/13/22 01/25/24 History
lisinopril 5 mg tablet 5 mg PO DAILY Blood Pressure 05/12/23 01/25/24 History
metoprolol succinate 25 mg 12.5 mg PO HS Blood Pressure 05/12/23 01/25/24 History
tablet,extended release 24 hr
coenzyme Q10 100 mg capsule 100 mg PO DAILY Supplement 09/30/23 01/25/24 History
(CoQ-10)
acetaminophen 325 mg tablet 650 mg PO QIDPRN PRN mild pain 01/25/24 01/25/24 History
(Tylenol)
amoxicillin 500 mg capsule 500 mg PO TID infection 01/25/24 01/25/24 History
apixaban 5 mg tablet (Eliquis) 5 mg PO BID Blood Clot 01/25/24 01/25/24 History
Prevention/Tx
pantoprazole 40 mg tablet,delayed 40 mg PO DAILY Gastrointestinal 01/25/24 01/25/24 History
release (Protonix) Issue
Review of Systems
-
History Source: Patient
All other systems: Negative unless noted
Physical Exam
Vital Signs
Temp Pulse Resp BP Pulse Ox
97.5 F 96 16 114/84 97
01/25/24 14:21 01/25/24 14:21 01/25/24 14:21 01/25/24 14:21 01/25/24 14:21
Lab Results
01/25/24 09:23
01/25/24 09:23
Troponin I Cancelled 01/25/24 20:21
[id number] Pept 9220 pg/ml 01/25/24 13:19
Physical Exam
General: No Apparent Distress and Comfortable
HEENT: Normocephalic, Anicteric and Moist Mucous Membranes
Respiratory: Crackles (at bases) and Non Labored Respirations
Cardiac: S1/S2, Irregular Rhythm and Murmur
GI: Soft, Non Tender, Non Distended and Normal Bowel Sounds
Musculoskeletal: No Clubbing, No Cyanosis and No Edema
Skin: Warm and Dry
Neuro: AO x 3
Impression / Plan
-
Primary [employer] Agent: Dr. Burks, last seen 2016
Assessment:
Presentation with tachycardia
Atrial fibrillation with RVR
Suspected acute on chronic HFpEF
Elevated troponin, suspected nonischemic myocardial injury
PAF s/p PVI 10/2023
mild to mod AI
mild to mod MR
Chronic LBBB
sinus bradycardia
History of vasovagal syncope
HTN
HLD
LETICIA on CPAP
prostate cancer s/p prostatectomy
Retinal tear of R eye
Recent hip bursitis
Lexiscan nuclear stress test 06/07/2022: Fixed defect in basal inferolateral, basal inferior, basal inferoseptal, mid inferior and apical inferior segments consistent with infarction with superimposed soft tissue attenuation, fixed defect in mid
anteroseptal defect consistent with infarction, EF 45%
Echo 08/2022: EF 55%, abnormal paradoxical septal motion consistent with left bundle branch block, mild concentric LVH, severely dilated LA, moderate MR, mild to moderate AR, mild TR, PAP 43 mmHg, trivial pericardial effusion
Plan:
-He presents with recurrence of atrial fibrillation with RVR approximately 3 months out from PVI 10/2023.
-Currently heart rates improved on IV Cardizem gtt at 5
-He was off of Eliquis for several days last week due to tooth extraction, resumed as of Saturday 01/20 PM dose
-N.p.o. after midnight for EVARISTO/cardioversion
-He has limited antiarrhythmic drug options given chronic left bundle branch block and baseline sinus bradycardia
-Would consider transition from low-dose Toprol to Cardizem
-If recurs, could consider for posterior wall ablation
-With crackles at bases on exam and chest x-ray read as mild pulmonary edema. proBNP elevated at 9000. Not on diuretic as outpatient. Will give IV Lasix 20 mg now and assess response
-Troponin 0.048. No chest pain. Last stress test from 06/2022 with results as above. Trend troponin, suspected nonischemic myocardial injury in the setting of rapid A-fib
-Discussed with nursing
Data Reviewed
-
EKG: Tracing Personally Visualized and interpreted
Radiology: Report Reviewed by me
Medical Tests (Nuc Med, Echo etc): Report Reviewed by me
Labs: Labs Reviewed by me
Old Records: Reviewed
--- NOTE | 2024-01-25 16:02 | PTCARENOTE ---
Rec'd pt from ED. Oriented pt to unit. Tele- afib 80-100s. Cardizem gtt infusing at 5 ml/hr. No c/o pain/discomfort at this time. Assessment completed as documented. Currently in bed; call jg w/in reach.
[2024-01-25] MEDS: AMOXIL 500 MG PO ×2 (16:37→22:07)
[2024-01-25] MEDS: LASIX 20 MG IV (16:38)
[2024-01-25] MEDS: ELIQUIS 5 MG PO (19:21)
[2024-01-25 20:03] LABS: Troponin I 0.046 ng/ml
--- NOTE | 2024-01-25 20:50 | PTCARENOTE ---
Received patient at change of shift. Afib on the monitor, HR in the 90s. VSS. Cardizem running as per protocol, see MAR. Discussed being NPO at midnight, pt verbalized understanding with the teach back method. No complaints from pt at this time,
call gregorio within reach.
[2024-01-25] MEDS: TOPROL XL 12.5 MG PO (22:07)
[2024-01-26 02:09] VITALS: BP 135/93
[2024-01-26 02:23] VITALS: BMI 20.7
[2024-01-26 02:43] LABS: % Basophils 0.4 % (0-2); % Eosinophils 1.5 % (0-6); % Immature Granulocytes 0.3 % (0-0.5); % Lymphocytes 21.2 % (20.5-51.1); % Monocytes 7.7 % (1.7-9.3); % Neutrophils 68.9 % (42.2-75.2); Absolute Eosinophils 0.1 10^3/uL (0-0.7); Absolute Lymphocytes 1.7 10^3/uL (1.2-3.4); Absolute Monocytes 0.6 10^3/uL (0.1-0.6); Absolute Neutrophils 5.4 10^3/uL (1.4-6.5); Hematocrit 42.9 % (39.0-52.0); Hemoglobin 14.7 g/dL (13.0-18.0); Mean Corp Hgb Conc. 34.3 g/dL (33.0-37.0); Mean Corpuscular Hgb 32.8 pg (27.0-31.0); Mean Corpuscular Volume 95.8 fL (80.0-94.0); Mean Platelet Volume 12.2 fL (7.4-10.4); Nucleated Red Blood Cells % 0 % (-); Platelet Count 124 10^3/uL (130-400); Red Blood Cell Count 4.48 10^6/uL (4.70-6.10); Red Cell Dist. Width 13.4 % (11.5-14.5); White Blood Cell Count 7.8 10^3/uL (4.8-10.8)
[2024-01-26 03:11] LABS: Blood Urea Nitrogen 18 mg/dl (9-20); Calcium 8.8 mg/dl (8.4-10.2); Carbon Dioxide 23 mmol/L (22-30); Chloride 100 mmol/L (98-107); Estimated Creatinine Clearance 55 ml/min; Glucose 89 mg/dl (70-99); Magnesium 1.8 mg/dl (1.6-2.3); Potassium 4.3 mmol/L (3.5-5.1); Sodium 135 mmol/L (135-145); eGFR > 60.00
[2024-01-26 03:53] LABS: Troponin I 0.048 ng/ml
[2024-01-26 07:25] VITALS: BP 117/75
[2024-01-26] MEDS: ELIQUIS 5 MG PO (07:50)
[2024-01-26 08:00] VITALS: BMI 20.7
--- NOTE | 2024-01-26 09:36 | ITS.CL.CARDI ---
Talent Development Consultant - Cardioversion
Cardioversion
Procedure Report:
Procedure: Direct current electrical cardioversion
Pre-operative diagnosis: Persistent atrial flutter
Post-operative diagnosis: Persistent atrial flutter status post DC cardioversion to sinus rhythm
Anesthesia: MAC
Attending Physician: René Moise MD
Procedure Description: The patient was brought to the electrophysiology laboratory in the fasting state. Adherence to anticoagulation regimen was confirmed. Informed consent was obtained from the patient prior to the start of the procedure.
Electrodes were placed on the patient and connected to an external defibrillator. Monitoring of blood pressure, ECG tracings, and pulse oximetry was initiated. The pads were applied to the patient in the anterior and posterior positions. The patient
was sedated by the anesthesiologist. A 200 joule biphasic synchronized shock was delivered to the patient under MAC anesthesia. Sinus rhythm was successfully restored. The patient recovered uneventfully from MAC anesthesia. There were no immediate
post-procedure complications. The patient left the lab in good condition. The attending physician was present throughout the entire procedure.
Impression: Successful direct current cardioversion with yazidism of sinus rhythm after one 50 joule biphasic synchronized shock.
[2024-01-26] MEDS: VITAMIN C 500 MG PO (09:51)
[2024-01-26] MEDS: THERAGRAN 1 TABLET PO (09:52)
[2024-01-26] MEDS: VITAMIN D3 (cholecalciferol) 25 MCG PO (09:52)
[2024-01-26] MEDS: LIPITOR 20 MG PO (09:52)
[2024-01-26] MEDS: PROTONIX 40 MG PO (09:53)
[2024-01-26] MEDS: ZESTRIL 5 MG PO (09:53)
[2024-01-26] MEDS: B COMPLEX w/VITAMIN C 1 CAPLET PO (10:13)
[2024-01-26] MEDS: AMOXIL 500 MG PO (10:13)
[2024-01-26 10:55] VITALS: BP 111/62
--- NOTE | 2024-01-26 11:16 | W.PN.CARDCBS ---
Addendum entered and electronically signed by René Moise MD 01/26/24 14:20:
I saw and examined the patient.
The Mate Chief's note was reviewed and I agree with the note.
Comment: Briefly, 83-year-old man past medical history of atrial fibrillation who underwent PVI in October 2023 and now presents in atrial flutter with rapid ventricular response
Underwent EVARISTO/direct-current cardioversion earlier today to restore sinus rhythm
Continue Eliquis for cardioembolic prophylaxis
LVEF was identified as being moderately reduced by EVARISTO
Plan to continue low-dose metoprolol and lisinopril
Would recommend outpatient transthoracic echocardiogram to reassess LVEF in the future
Mild CHF exacerbation, patient received IV Lasix with tentative plan to discharge on oral daily Lasix
Check BMP as an outpatient
Stable cardiac status, follow-up arranged
Original Note:
Today's Communication / Plan
-
s/p successful EVARISTO/CV today
EF reduced by EVARISTO, will need repeat echo as OP
continue low dose toprol, lisinopril
add po lasix 20mg daily for DC
BMP in 1 week
eliquis 5mg BID
OP cardiac follow up arranged
ok for DC from cardiac standpoint
Impression / Plan
-
Primary House Carpenter Helper: Dr. Burks, last seen 2016
Assessment:
Presentation with tachycardia
Atrial flutter with RVR s/p successful EVARISTO/CV 01/26/24
Acute on chronic HFpEF
Cardimyopathy, presumed transient related to episode of aflutter with RVR
Elevated troponin, suspected nonischemic myocardial injury
PAF s/p PVI 10/2023
mild to mod AI
mild to mod MR
Chronic LBBB
sinus bradycardia
History of vasovagal syncope
HTN
HLD
LETICIA on CPAP
prostate cancer s/p prostatectomy
Retinal tear of R eye
Recent hip bursitis
Lexiscan nuclear stress test 06/07/2022: Fixed defect in basal inferolateral, basal inferior, basal inferoseptal, mid inferior and apical inferior segments consistent with infarction with superimposed soft tissue attenuation, fixed defect in mid
anteroseptal defect consistent with infarction, EF 45%
Echo 08/2022: EF 55%, abnormal paradoxical septal motion consistent with left bundle branch block, mild concentric LVH, severely dilated LA, moderate MR, mild to moderate AR, mild TR, PAP 43 mmHg, trivial pericardial effusion
EVARISTO 01/26/2024: Global hypokinesis with regional variation, abnormal septal motion consistent with left bundle branch block, EF 35%, no thrombus detected in MENDEZ, moderate central MR, mild to moderate eccentric AR
Plan:
-He presented with a flutter with RVR approximately 3 months out from PVI
-Underwent successful EVARISTO/cardioversion this morning
-He has limited antiarrhythmic drug options given chronic left bundle branch block and baseline sinus bradycardia
-EF by EVARISTO was noted to be newly reduced, suspected related to atrial flutter with rapid ventricular response. Will need repeat echo as outpatient to reassess EF and moderate valvular disease
-Continue Toprol, lisinopril
-Was given 20 mg IV Lasix yesterday due to chest x-ray with mild pulmonary edema and proBNP elevated at 9000. Weight down 2 pounds overnight if accurate. Was not on diuretic prior to admission. Would discharge on 20 mg daily with BMP in 1 week
-If atrial arrhythmia recurs, consider for posterior wall ablation
-Troponins flat at 0.048. No chest pain. Last stress test from 06/2022 with results as above. suspected nonischemic myocardial injury in the setting of rapid A-fib.
-ok for DC to home today
-OP cardiac follow up arranged
-Discussed with nursing, hospitalist
Progress Note - House Carpenter Helper
Subjective
Date of Service: January 26, 2024
eager for DC. s/p successful EVARISTO/CV today
Objective
Labs:
01/26/24 02:17
01/26/24 02:17
Labs
Hgb 14.7 g/dL (13.0-18.0) 01/26/24 02:17
Hct 42.9 % (39.0-52.0) 01/26/24 02:17
Plt Count 124 10^3/uL (130-400) L 01/26/24 02:17
Sodium 135 mmol/L (135-145) 01/26/24 02:17
Potassium 4.3 mmol/L (3.5-5.1) 01/26/24 02:17
BUN 18 mg/dl (9-20) 01/26/24 02:17
Creatinine 1.0 mg/dL (0.7-1.3) 01/26/24 02:17
Glucose 89 mg/dl (70-99) 01/26/24 02:17
Troponins
01/25/24 01/25/24 01/25/24
13:19 14:21 19:00
Troponin I 0.048 H* Cancelled Cancelled
01/25/24 01/25/24 01/26/24
19:32 20:21 02:17
Troponin I 0.046 H* Cancelled 0.048 H*
Vital Signs and I&O:
Vital Signs
Temp Pulse Resp BP Pulse Ox
97.8 F 86 20 117/75 96
01/26/24 07:23 01/26/24 07:30 01/26/24 07:23 01/26/24 07:25 01/26/24 07:23
Vital Signs
Temp Pulse Resp BP Pulse Ox
97.8 F 86 20 117/75 96
01/26/24 07:23 01/26/24 07:30 01/26/24 07:23 01/26/24 07:25 01/26/24 07:23
Intake & Output
01/24/24 01/25/24 01/26/24 01/27/24
07:59 07:59 07:59 07:59
Intake Total 400 / 400
Output Total 1999 / 1999
Balance -1600 / -1600
Physical Exam
Physical Exam
GEN: No distress, awake, alert, oriented x3
HEENT: supple, anicteric, mmm, eomi
LUNGS: Few crackles at bases, no wheezes
CV: Reg, S1/S2, 1/6 syst LSB
ABD: soft, BS+, NT/ND
EXT: No cyanosis, clubbing, edema
NEURO: Gross non-focal
SKIN: Warm, pink, dry. No rash
--- NOTE | 2024-01-26 12:22 | W.PN.HOSP.TC ---
Today's Communication/Plan
-
Discharge today
Assessment / Plan
Assessment / Plan
Physical Exam
General: Not in acute distress
HEENT: Normocephalic
Respiratory: Faint crackles bilaterally
Cardiac: S1/S2, Regular Rate and Rhythm. Systolic Murmur.
GI: Soft, Non Tender and Normal Bowel Sounds
Musculoskeletal: No Cyanosis and No Edema
Skin: Warm and Dry
Neuro: Awake, Alert and AO x 3
Psych: Calm and Intact Judgment/Insight
Transesophageal Echocardiogram (as per airways operations specialist's report)
'CONCLUSIONS
Moderately reduced left ventricular systolic function. Global hypokinesis with
regional variation. Abnormal (paradoxical) septal motion consistent with left
bundle branch block. The ejection fraction is estimated at 35%.
Normal right ventricular size and function.
No thrombus detected in the left atrial appendage.
Moderate central mitral regurgitation.
Mild to moderate eccentric aortic regurgitation.
Compared to prior EVARISTO which was directly reviewed dated 05/14/2022 , LV LV
systolic function was previously normal and has now declined'
Assessment/Plan
Presentation with tachycardia, more SOB on exertion than usual
A-Flutter with Rapid Ventricular Response followed by successful direct current cardioversion with church of sinus rhythm on 01/26/24
Atrial fibrillation on home Eliquis
-Status post Cardizem Drip
-Continue Eliquis
-Given patient is not hypoxic, has no chest pain, and has been compliant with Eliquis, this is unlikely to be PE
-Monitor in IVU
-Cardiology consulted, appreciate evaluation and recommendations
-Limited antiarrhythmic drug options given chronic left bundle branch block and baseline sinus bradycardia
Acute on Chronic HFpEF
Mild Pulmonary Edema
Cardiomyopathy, presumed transient related to episode of aflutter with RVR
-Continue home Toprol XL, Lisinopril
-New: Lasix 20 mg PO daily
-Daily weights, I's and O's
-Will need repeat echo as outpatient to reassess EF and moderate valvular disease
-Recheck BMP, Magnesium within 1 week
Mild to mod AI
Mild to mod MR
Elevated troponin, suspected nonischemic myocardial injury
'Increased soft tissue density overlying the LEFT greater trochanter suspicious for underlying fluid collection/bursitis' (as per recent hip x-ray from 01/18/24)
Left Lateral Hip Pain following golf
-Currently no leukocytosis or fever
-Continue to monitor -- patient says his outpatient physicians have evaluated this and there are no concerns about this at this time, and that he has no pain and can ambulate well
Hypertension
-Continue Lisinopril
-Continue Toprol XL
Hyperlipidemia
-Continue Atorvastatin
Left bundle branch block
Prostate cancer > 20 years s/p robotic resection
History of vertigo with labyrinthitis
Obstructive sleep apnea, compliant with CPAP -- patient stated someone will bring his home CPAP to use while in hospital
History of retinal detachment
Vitamin D deficiency -- continue home Vitamin D3
Code Status: Full Code
DVT Prophylaxis: Eliquis
More than 30 minutes spent in discharge including
Final examination of the patient
Summarizing hospital stay
Instructions for continuing care to all relevant caregivers
Preparation of discharge records, prescriptions, and referral forms
Total time spent (in minutes): 36
Anticipated Discharge: Today
Subjective/Interval History
-
Date of Service: January 26, 2024
Patient was seen and examined. He denied any chest pain or shortness of breath or any other symptoms or complaints. He would like to go home today.
Objective Data
-
Labs:
Laboratory Results
01/26/24
02:17
WBC 7.8
Hgb 14.7
Hct 42.9
Plt Count 124 L
Sodium 135
Potassium 4.3
Chloride 100
Carbon Dioxide 23
BUN 18
Creatinine 1.0
Glucose 89
Calcium 8.8
Vital Signs:
Vital Signs
Temp Pulse Resp BP Pulse Ox
98 F 86 18 117/75 97
01/26/24 10:55 01/26/24 07:30 01/26/24 10:55 01/26/24 07:25 01/26/24 10:55
I&O
01/25/24 01/26/24 01/27/24
06:59 06:59 06:59
Intake Total 400 / 400
Output Total 1999 / 1999
Balance -1600 / -1600
--- NOTE | 2024-01-26 12:39 | PTCARENOTE ---
Pt received this am in Afib, rate in the 70's to 80's. Pt sent to EVARISTO/CV and returned in SB/SR rate in the 50's to 60's.
[2024-01-26] MEDS: LASIX 20 MG PO (12:48)
--- NOTE | 2024-01-26 13:00 | PTCARENOTE ---
Pt discharged to home with his . Discharge instructions given and reviewed with good understanding.
== END 2024-01-26 13:10 | disposition home or self-care (01) | DRG 309 ==
LOC: IVU 12:58
PROVIDERS: Internal Medicine Cardiovascular Disease; ADMITTING PHYSICIAN Hospitalist; EMERGENCY PHYSICIAN Emergency Medicine; FAMILY PHYSICIAN Internal Medicine Geriatric Medicine; OTHER PHYSICIAN Internal Medicine Cardiovascular Disease; REFERRING PHYSICIAN Internal Medicine Cardiovascular Disease
PROC: B24BZZ4 Ultrasonography of Heart with Aorta, Transesophageal (ICD-10-PCS; 2024-01-26)
PROC: 5A2204Z Restoration of Cardiac Rhythm, Single (ICD-10-PCS; 2024-01-26)
DX: I48.92 Unspecified atrial flutter (principal); I50.32 Chronic diastolic (congestive) heart failure; I5A Non-ischemic myocardial injury (non-traumatic); Z79.01 Long term (current) use of anticoagulants; I48.0 Paroxysmal atrial fibrillation; I11.0 Hypertensive heart disease with heart failure; E55.9 Vitamin D deficiency, unspecified
CPT/HCPCS: 71046; 80048; 80053; 83735; 83880; 84443; 84484; 85025; 93005; 93312; 93320; 93325; 96374; 99291

== ENCOUNTER → 2024-02-21 10:19 | Outpatient (REF) | payer MEDICARE, OTHER, SELFPAY | LOC: HWRCS 10:19 | PROVIDERS: ATTENDING PHYSICIAN Physician Assistant Medical; FAMILY PHYSICIAN Internal Medicine Geriatric Medicine | DX: I50.33 Acute on chronic diastolic (congestive) heart failure (principal); I42.8 Other cardiomyopathies | CPT/HCPCS: 93306 ==

== ENCOUNTER → 2024-10-08 14:57 | Outpatient (REF) | payer MEDICARE, OTHER, SELFPAY | LOC: HWRCS 14:57 | PROVIDERS: ATTENDING PHYSICIAN Internal Medicine Cardiovascular Disease; FAMILY PHYSICIAN Internal Medicine Geriatric Medicine | DX: I34.0 Nonrheumatic mitral (valve) insufficiency (principal) | CPT/HCPCS: 93306 ==

== ENCOUNTER 2024-11-26 11:43 | Inpatient (IN) | payer MEDICARE, OTHER, SELFPAY ==
[2024-11-26] VITALS (18 sets, daily range): BP systolic 100–143; BP diastolic 59–91
--- NOTE | 2024-11-26 08:53 | ED.GENMED ---
History of Present Illness
General
Chief Complaint: Heart Rate Problem
Source: patient
Time Seen by Provider: 11/26/24 08:34
History of Present Illness
History of Present Illness:
This patient is a 83-year-old male presents emergency department with reported elevated heart rate and dyspnea for the last 3 weeks. He has been in contact with his optical systems engineer and had his metoprolol increased from 12.5 mg/day to a total of 15
mg/day. He continues with palpitations and dyspnea now associated with orthopnea. He denies PND, leg swelling, fever, chills, cough, sore throat, rhinorrhea, vomiting. He did have nausea when he was taking the metoprolol 50 mg once a day, but
that resolved when he split the dose to 25 mg twice daily. He denies chest pain or pressure, headache, dizziness, bleeding, back pain, or other complaints. He is compliant with his anticoagulation
Past History
Past History
ED Past Medical History: Arrthythmia (Atrial fibrillation), Cancer (Prostate), HTN, Hypercholesterolemia and Other (LETICIA, heart failure with preserved ejection fraction, left bundle branch block)
ED Past Surgical History: Cardiac (Cardiac ablation)
Social History
Tobacco: Non-smoker
Alcohol: None
Drug: None
Personal:
Living: with family
Phy Exam
Physical Exam
Physical Exam:
GENERAL: Alert , appears mildly dyspneic
EYE: pupils equal and reactive
NECK: Supple, no significant adenopathy.
ENT: o/p clr, mmm.
CARDIAC: Regular rate and rhythm, tachycardic
LUNGS: Equal breath sounds bilaterally, no acute respiratory distress, no wheezes or rhonchi, bibasilar rales slight appreciated
ABDOMEN: Soft, without focal tenderness, no r/g, no cvat
NEUROLOGICAL: Alert and oriented, no focal neuro deficits
SKIN: Warm and dry, skin intact.
MUSCULOSKELETAL: No edema, well perfused.
PSYCH: Normal and appropriate interaction.
Course
Orders/Labs/Results
Orders:
Orders
11/26/24 08:10
EKG [Electrocardiogram (*1)] Urgent
Reason for Study: Chest Pain
EKG- Treatment ONCE
11/26/24 08:49
Pulse Ox/cont/shift [RESP] Stat
Quantity: 1
11/26/24 08:50
Cardiac Monitoring- Treatment ONCE
CR Chest - 2 Views Urgent
Comment:
Reason For Exam: sob
11/26/24 08:51
Diltiazem 125 mg/125 ml Nss [Cardizem] 125 mg in 125 ml IV NOW
Initial dose in mg/hr, then titrate:: 5
Titrate to keep:: Heart rate 80-100 bpm
Titrate by mg/hr:: 5 mg/hr
Frequency of titrations (minutes):: 15
Maximum dose in mg/hr:: 15
Diltiazem HCl [Cardizem] 20 mg IV NOW STA
11/26/24 08:52
Complete Blood Count/No Diff Urgent
Comprehensive Metabolic Panel Urgent
NT-proBNP Urgent
Troponin I Urgent
11/26/24 09:41
Furosemide [Lasix] 40 mg IV NOW STA
11/26/24 09:44
Aspirin 325 mg PO NOW STA
11/26/24 09:50
Electrocardiogram (*1) Urgent
Reason for Study: Shortness of Breath
EKG- Treatment ONCE
11/26/24 11:06
Admit/Transfer Patient As Directed
Co-Sign Provider:
Level of Care: Inpatient admission
Assign to:: IVU
Physician / Group: Hospitalist: Andreea
Diagnosis: Aflutter w RVR
Reason for Hospitalization: Aflutter w RVR
Expected length of stay greater than two midnights?: Yes
ELOS- Estimated Length of Stay in days: 1
I certify the patient meets the requirements for IP care: Yes
11/26/24 11:07
PRN Pain Medication Management As Directed
May give lesser potent ordered pain med per pt: Yes
preference::
Protocol:: Medication orders for pain may be administered in a
manner that supports deferring to patient preference
when the pt is:
- Requesting an ordered lesser potent pain medication.
Least to most potent pain medications are defined
as: acetaminophen < NSAID < tramadol < opioids
(morphine, oxycodone, hydromorphone).
- Requesting a lesser dose of the same medication IF
ORDERED.
- Requesting a less intrusive route of administration
if both routes are prescribed by the provider (PO <
IV).
11/26/24 11:10
Code Status As Directed
Resuscitation Status: Full Code
11/26/24 11:41
PRN Pain Medication Management As Directed
May give lesser potent ordered pain med per pt: Yes
preference::
Protocol:: Medication orders for pain may be administered in a
manner that supports deferring to patient preference
when the pt is:
- Requesting an ordered lesser potent pain medication.
Least to most potent pain medications are defined
as: acetaminophen < NSAID < tramadol < opioids
(morphine, oxycodone, hydromorphone).
- Requesting a lesser dose of the same medication IF
ORDERED.
- Requesting a less intrusive route of administration
if both routes are prescribed by the provider (PO <
IV).
11/26/24 13:57
Docusate W/Senna [Senokot-S] 1 tablet PO BIDPRN PRN
Polyethylene Glycol Powder [Miralax] 17 grams PO DAILYPRN PRN
11/26/24 13:57
CARDIOLOGY CONSULT Routine
Consulting Provider: Gejer,Shahbaz
Was physician already notified: Yes
Reason for consult: aflutter, HR 120
Activity As Directed
Activity Level: As Tolerated
Vital Signs As Directed
Frequency: Per unit guidelines
11/26/24 14:21
Troponin I Q8H
11/26/24 Dinner
Cholesterol Lowering
At Your Request: Full Participation
Cholesterol Lowering: Sodium, 2 Gram
11/26/24 20:00
Apixaban [Eliquis] 5 mg PO BID
11/26/24 22:41
Troponin I Q8H
11/27/24 08:00
Atorvastatin [Lipitor] 20 mg PO DAILY
Cholecalciferol (Vitamin D3) [VITAMIN D3 (cholecalciferol)] 25 mcg PO DAILY
Furosemide [Lasix] 40 mg IV DAILY
11/28/24 11:00
DC Protocol for Telemetry ONCE
Abnormal Lab Results
11/26/24
08:52
RBC 4.37 L 10^6/uL
(4.70-6.10)
MCV 95.0 H fL
(80.0-94.0)
MCH 33.0 H pg
(27.0-31.0)
MPV 12.1 H fL
(7.4-10.4)
Sodium 131 L mmol/L
(135-145)
Carbon Dioxide 21 L mmol/L
(22-30)
BUN 31 H mg/dl
(9-20)
Glucose 124 H mg/dl
(70-99)
Troponin I 0.043 H* ng/ml
11/26/24 08:52
11/26/24 08:52
Vital Signs
Initial and Last Documented VS:
Initial Vital Signs
Temp Pulse Resp BP Pulse Ox
97.6 F 124 20 143/91 94
11/26/24 08:12 11/26/24 08:12 11/26/24 08:12 11/26/24 08:12 11/26/24 08:12
Last Documented Vital Signs
Temp Pulse Resp BP Pulse Ox
97.7 F 81 22 119/76 95
11/28/24 07:45 11/28/24 10:00 11/28/24 07:45 11/28/24 10:00 11/28/24 10:00
*Pulse Oximetry
SaO2: 98
Nasal Cannula flow liters per minute: 6
Oxygen Mode of Delivery: Room air
Patient hypoxic: no
*Critical Care Note
Total Time (30-74mins, 75-104mins- exclusive of procedures): 30
Update Note
Update Note:
Patient presents to the Emergency Department with ___elevated heart rate and dyspnea
Number and Complexity of Problems Addressed at the Encounter
� Chronic conditions affecting care:
� Acute Exacerbation and/or Progression of Chronic Illness:
� Differential Diagnosis includes: But not limited to heart failure exacerbation, arrhythmia such as A-fib or a flutter, SVT, pneumonia, PE, etc. etc.
Amount and/or Complexity of Data to be Reviewed and Analyzed
� I performed an independent evaluation of and my interpretation is:
EKG: Read by me, atrial tachycardia at 120, baseline left bundle branch block, ST depressions with T wave inversions which are unchanged from prior
CT:
Xrays:mild mod pul edema
Laboratory Studies:sl trop evelation (no pain, no acute ischemia va ecg), bnp elevated c/w hf
Other:
� Review of other/old records reveals: Patient admitted January 2024 with A-fib flutter with RVR and mild failure was cardioverted at that time
� Clinical information was obtained by an independent historian:
� Prescriptions/Medications Considered but not given:
� Further testing considered but not performed:
Risk of Complications and/or Morbidity or Mortality of Patient Management
� Social determinants of health affecting care:
� Discussion with other providers (PCP, Hospitalists, Consultants, etc): Case discussed with Dr. Hernandez via [place] text he states that patient is always in atrial tachycardia and that his rate has been increased lately causing
him to increase his beta-myron as an outpatient.
� Escalation of care including admission/observation vs risk of discharge considered: Given patient is fully compliant with anticoagulation I think PE is extremely unlikely.
Pt with hx of afib/atrial tachycardia/hfpef in past, on eliquis, presents with palpitations and sob progressive X3 weeks. He's in aflutter rate with rvr 120, hypoxic on RA===he is in mild failure, rate controlled on cardizem, hypoxia relieved with
nasal cannula, lasix and asa ordered. Cari Burks and Babak aware.
ED Attending Note
-
Portions of this chart may have been created with voice recognition software.� Occasional wrong word or��sound alike� substitutions may have occurred due to the inherent limitations of voice recognition software.
Discharge Plan
Departure
Patient Disposition: Admit
Date of Disposition: 11/26/24
Time of Disposition: 10:22
Admit to: Telemetry
Presentation/result/management discussed w/ accepting MD/DO: Hospitalist
Condition: Fair
Discharge Problem:
Atrial flutter
Interventions
Interventions:
*Risk Screen - Suicide Last Done: 11/26/24 14:03
*General Assessment Last Done: 11/26/24 08:55
*Neglect/Abuse Screening Last Done: 11/26/24 08:12
*ED- Fall Risk Assessment Last Done: 11/26/24 08:55
*ED COVID-19 Vaccine History Last Done: 11/26/24 08:55
*Nursing Disposition Last Done: 11/26/24 14:06
ED- Cardiac Assessment Last Done: 11/26/24 10:01
ED- Pulmonary Assessment Last Done: 11/26/24 10:01
Discharge Date and Time
Discharge Date/Time: 11/26/24 14:07
[2024-11-26] MEDS: CARDIZEM 20 MG IV (08:59)
[2024-11-26] MEDS: CARDIZEM 125 IV ×2 (09:02→23:41)
[2024-11-26 09:20] LABS: Hematocrit 41.5 % (39.0-52.0); Hemoglobin 14.4 g/dL (13.0-18.0); Mean Corp Hgb Conc. 34.7 g/dL (33.0-37.0); Mean Corpuscular Volume 95.0 fL (80.0-94.0); Platelet Count 180 10^3/uL (130-400); Red Cell Dist. Width 13.3 % (11.5-14.5)
[2024-11-26 09:22] LABS: ALT (SGPT) 36 U/L (0-50); AST (SGOT) 35 U/L (17-59); Albumin 4.4 g/dl (3.5-5.0); Alkaline Phosphatase 59 U/L (38-126); Blood Urea Nitrogen 31 mg/dl (9-20); Calcium 9.1 mg/dl (8.4-10.2); Carbon Dioxide 21 mmol/L (22-30); Chloride 100 mmol/L (98-107); Estimated Creatinine Clearance 51 ml/min; Glucose 124 mg/dl (70-99); Potassium 4.6 mmol/L (3.5-5.1); Sodium 131 mmol/L (135-145); Total Protein 7.1 g/dl (6.3-8.2); eGFR > 60.00
[2024-11-26 09:37] LABS: Troponin I 0.043 ng/ml
[2024-11-26] MEDS: LASIX 40 MG IV (09:51)
[2024-11-26] MEDS: ASPIRIN 325 MG PO (09:53)
--- NOTE | 2024-11-26 11:14 | HPS.HSE ---
Family Physician
-
Family Physician: Chano Gaxiola
Chief Complaint
-
Tachycardia, shortness of breath
History of Present Illness
Mr. Lozada is an 83-year-old male with a medical history of atrial flutter (EVARISTO/cardioversion 01/26/2024), paroxysmal A-fib (PVI 10/2023), chronic LBBB, nonischemic cardiomyopathy (suspect transient systolic dysfunction due to atrial flutter with RVR,
EF now recovered), HFpEF (grade 3 diastolic dysfunction), moderate mitral and aortic regurgitation, LETICIA (CPAP at night), and prostate cancer (status post prostatectomy) who is in with 3 weeks of tachycardia with progressively worsening shortness of
breath. He also reports orthopnea and early satiety over the past few days prior to arrival. He has been in contact with his primary orthopaedic technologist for dosage adjustments of his beta-myron during the past few weeks. His metoprolol succinate was
initially increased from 12.5 mg/day up to 25 mg a day without improvement in his tachycardia. His dose was later increased to 50 mg/day which he took at night but was unable to tolerate saying that it made him feel terrible. Alternatively he
trialed metoprolol succinate 25 mg in the morning and 25 mg at night. However his heart rate has unfortunately remained uncontrolled. In the ED today, he was found to be hypoxic with a pulse ox in the mid 80s on room air in the ED. His pulse ox
recovered to the high 90s on 4 L via nasal cannula. He has been admitted for further evaluation and management of a flutter with uncontrolled heart rate and acute on chronic HFpEF.
Medical History
Past Medical History
Past Medical History: Reports Other
Additional Past Medical History:
atrial flutter (EVARISTO/cardioversion 01/26/2024), paroxysmal A-fib (PVI 10/2023), chronic LBBB, nonischemic cardiomyopathy (suspect transient systolic dysfunction due to atrial flutter with RVR, EF now recovered), HFpEF (grade 3 diastolic dysfunction),
LETICIA (CPAP at night), and prostate cancer (status post prostatectomy)
Past Surgical History: Reports Cardiac (EVARISTO/cardioversion 01/26/2024, PVI 10/2023) and Urological (Robotic prostatectomy)
Social History
Tobacco: Non-smoker
Alcohol: Occasional
Drug: None
Family History
Family History: Not pertinent
Allergies / Home Medications
Allergies reflects when Allergies were last updated in [facility].
Home Medications with original date entered in [facility]
Allergy/Medication List:
Allergies
Allergy/AdvReac Type Severity Reaction Status Date / Time
No Known Allergies Allergy Verified 11/26/24 08:11
Home Medications
ascorbic acid (vitamin C) 500 mg tablet (Vitamin C) 500 mg PO DAILY Supplement 05/13/22
atorvastatin 20 mg tablet 20 mg PO DAILY High cholesterol 05/13/22
cholecalciferol (vitamin D3) 25 mcg (1,000 unit) tablet (Vitamin D3) 25 mcg PO DAILY Supplement 05/13/22
therapeutic multivitamin 1 tab PO DAILY Supplement 05/13/22
vitamin B complex 1 tab PO DAILY Supplement 05/13/22
lisinopril 5 mg tablet 5 mg PO DAILY Blood Pressure 05/12/23
coenzyme Q10 100 mg capsule (CoQ-10) 100 mg PO DAILY Supplement 09/30/23
apixaban 5 mg tablet (Eliquis) 5 mg PO BID Blood Clot Prevention/Tx 01/25/24
furosemide 20 mg tablet 20 mg PO DAILY #30 tabs 01/26/24
metoprolol succinate 50 mg tablet,extended release 24 hr (Toprol XL) 50 mg PO HS 11/26/24
Review of Systems
-
History Source: Patient
A 12 point ROS was completed and negative except as noted: Yes
Respiratory: Reports Trouble Breathing
Cardiac: Reports Palpitations
Physical Exam
Vital Signs
Vital Signs
Temp Pulse Resp BP Pulse Ox
97.6 F 119 18 117/68 97
11/26/24 08:12 11/26/24 11:03 11/26/24 11:00 11/26/24 10:30 11/26/24 11:00
Physical Exam
General: No Apparent Distress
Laboratory Results
-
11/26/24 08:52
11/26/24 08:52
Laboratory Results
Total Bilirubin 1.2 mg/dl (0.2-1.3) 11/26/24 08:52
AST 35 U/L (17-59) 11/26/24 08:52
ALT 36 U/L (0-50) 11/26/24 08:52
Alkaline Phosphatase 59 U/L (38-126) 11/26/24 08:52
Troponin I 0.043 ng/ml H* 11/26/24 08:52
Impression/Plan
-
General: No Apparent Distress, Comfortable and Conversant
HEENT: NormoCephalic, Moist mucous membranes, Atraumatic
Respiratory: Clear and Non Labored Respirations
Cardiac: A-flutter, heart rate around 110
GI: Soft, Non Tender, Non Distended and Normal Bowel Sounds
Musculoskeletal: Trace lower extremity edema, no deformity
Skin: Warm and dry
: NO Rose
Neuro: Awake, Alert, Nonfocal/grossly intact
Psych: Calm and Intact Judgment/Insight
Mr. Lozada is an 83-year-old male with a medical history of atrial flutter (EVARISTO/cardioversion 01/26/2024), paroxysmal A-fib (PVI 10/2023), chronic LBBB, nonischemic cardiomyopathy (suspect transient systolic dysfunction due to atrial flutter with RVR,
EF now recovered), HFpEF (grade 3 diastolic dysfunction), moderate mitral and aortic regurgitation, LETICIA (CPAP at night), and prostate cancer (status post prostatectomy) who is in with 3 weeks of tachycardia with progressively worsening shortness of
breath. He also reports orthopnea and early satiety over the past few days prior to arrival. He has been in contact with his primary orthopaedic technologist for dosage adjustments of his beta-myron during the past few weeks. His metoprolol succinate was
initially increased from 12.5 mg/day up to 25 mg a day without improvement in his tachycardia. His dose was later increased to 50 mg/day which he took at night but was unable to tolerate saying that it made him feel terrible. Alternatively he
trialed metoprolol succinate 25 mg in the morning and 25 mg at night. However his heart rate has unfortunately remained uncontrolled. In the ED today, he was found to be hypoxic with a pulse ox in the mid 80s on room air in the ED. His pulse ox
recovered to the high 90s on 4 L via nasal cannula. He has been admitted for further evaluation and management of a flutter with uncontrolled heart rate and acute on chronic HFpEF.
A flutter with RVR:
- Currently maxed out diltiazem drip at 15 mg/h
- Holding home beta-myron currently to allow for alternative agents as needed, home metoprolol succinate had not been adequately controlling his heart rate
- Will need to bridge to oral agents, although we will have to discuss his regimen cardiology team prior to initiating
- Telemetry monitoring
- Further recommendations per cardiology
Acute on chronic HFpEF:
- He has trace lower extremity edema and significantly elevated BNP, suspect related to his uncontrolled heart rate
- Was given a dose of IV Lasix x 1 in the ED
- Will continue IV Lasix daily for now pending any adjustments made by the cardiology team
- Blood pressure is currently on the low side now that he is on diltiazem drip, will hold afterload reducing agents for now
- Control tachycardia as outlined above
- Appreciate cardiology input
Elevated troponin:
- Do not suspect acute ischemia, troponin elevation likely rate related
- Trend through peak
DVT prophylaxis: Eliquis
CODE STATUS: Full code
Total time spent on today's encounter was 62 minutes
--- NOTE | 2024-11-26 12:04 | CON.CAR ---
Addendum entered and electronically signed by Ramiro Burks MD 11/26/24 13:12:
I saw and examined the patient.
The JORDAN MAN or PA's note was reviewed and I agree with the note.
Comment: General: Well developed, well nourished in NAD.
Neck: Supple, no JVD, HJR, carotids +2 B/L, no bruits bilaterally.
Heart: Non displaced PMI, irregular, tachycardic, no murmurs, No S3, S4, no rubs.
Lungs: Scattered rhonchi
Extremities: No clubbing, cyanosis or edema bilaterally.
Neuro: Grossly nonfocal, awake, alert and oriented x3.
Torin is a history of atrial flutter status post EVARISTO cardioversion January 2024, A-fib status post PVI October 2023 on chronic Eliquis, chronic diastolic CHF, moderate MR, mild to moderate AI, left bundle branch block, sleep apnea on CPAP. He
presents with worsening shortness of breath and orthopnea. He has had atrial tachycardia for the past month. Heart rate has remained rapid despite increasing Toprol dose. Will add amiodarone and do cardioversion on Tuesday 11/28. Might be a
candidate for redo ablation and will discuss with EP. Will treat with IV Lasix and recheck echocardiogram given CHF. Troponin elevation is minimal and likely non-NH ischemic injury
Original Note:
Consultation
Consultation Request
Date/Time Consultation Requested: 11/26/2024
Date/Time Consultation Performed: 11/26/2024
Requesting Provider: Dr. Doran
Performing Provider: Dr. Burks
Reason for Consultation: Acute HF, persistent atrial tachycardia
Medical History
-
History of Present Illness:
Patient came to the ER today with symptoms of orthopnea and cardiology is consulted for atrial tachycardia and acute HF. Patient reports receiving a flu shot the Tuesday before Labor Day and then starting on Labor Day he felt an odd sensation in his
chest and checked his Apple Watch that showed his HR was 120 when his usual HR is 50-60. The patient called the office and was instructed to increase his dose of metoprolol and he had a 7-day monitor applied. His monitor looked like atrial
tachycardia and the metoprolol dose was increased again. Despite increasing doses of metoprolol his HR in the 120s persisted and then in the last 3 days he started with symptoms of orthopnea and POTTER. He denies any chest pain. Patient usually
takes Lasix 20 mg PO daily and reports compliance. Patient has history of atrial arrhythmia with paroxysmal A-fib and previous PVI 10/2023 and then he had an episode of atrial flutter that was successfully treated with EVARISTO/CV 01/26/2024 and at that
time his EF dropped to 35%, but then improved with buddhism of SR. He denies missing any doses of Eliquis.
PMH:
Paroxysmal atrial flutter s/p successful EVARISTO/CV 01/26/24
Paroxysmal atrial fibrillation s/p PVI 10/2023
Chronic Eliquis OAC
Chronic HFpEF
Improved CM, EF as low as 35% by EVARISTO 01/26/2024 and improved to 50% by echo 10/08/2024
Moderate MR by echo 10/08/2024
Mild to moderate aortic regurgitation
Chronic LBBB
h/o sinus bradycardia
History of vasovagal syncope
HTN
HLD
LETICIA on CPAP
prostate cancer s/p prostatectomy
Retinal tear of R eye
Past Medical History
Past Medical History: Other (in HPI)
Past Surgical History: Cardiac (PVI 10/2023)
Social History
Tobacco: Non-Smoker
Alcohol: Daily (1-2 glasses of wine)
Personal:
Living: With Family
Employment: Retired
Family History
Family History: CAD (with NH in father at 60)
Allergies / Home Medications
Allergy/AdvReac Type Severity Reaction Status Date / Time
No Known Allergies Allergy Verified 11/26/24 08:11
�Medication �Instructions �Recorded �Confirmed �Type
ascorbic acid (vitamin C) 500 mg 500 mg PO DAILY Supplement 05/13/22 11/26/24 History
tablet (Vitamin C)
atorvastatin 20 mg tablet 20 mg PO DAILY High cholesterol 05/13/22 11/26/24 History
cholecalciferol (vitamin D3) 25 25 mcg PO DAILY Supplement 05/13/22 11/26/24 History
mcg (1,000 unit) tablet (Vitamin
D3)
therapeutic multivitamin 1 tab PO DAILY Supplement 05/13/22 11/26/24 History
vitamin B complex 1 tab PO DAILY Supplement 05/13/22 11/26/24 History
lisinopril 5 mg tablet 5 mg PO DAILY Blood Pressure 05/12/23 11/26/24 History
coenzyme Q10 100 mg capsule 100 mg PO DAILY Supplement 09/30/23 11/26/24 History
(CoQ-10)
apixaban 5 mg tablet (Eliquis) 5 mg PO BID Blood Clot 01/25/24 11/26/24 History
Prevention/Tx
furosemide 20 mg tablet 20 mg PO DAILY #30 tabs 01/26/24 11/26/24 Rx
metoprolol succinate 50 mg 50 mg PO HS 11/26/24 11/26/24 History
tablet,extended release 24 hr
(Toprol XL)
Review of Systems
-
History Source: Patient
All other systems: Negative unless noted
Physical Exam
Vital Signs
Temp Pulse Resp BP Pulse Ox
97.6 F 119 18 117/68 97
11/26/24 08:12 11/26/24 11:03 11/26/24 11:00 11/26/24 10:30 11/26/24 11:00
GEN: NAD. AAOx3
HEENT: EOMI, MMM
LUNGS: 2 L NC. Bibasilar rales without wheeze
CV: Atach on tele. Irreg, S1/S2, / syst LSB
ABD: ND
EXT: +1 left worse than right LE edema
NEURO: Gross non-focal
SKIN: Warm, pink, dry. No rash
Lab Results
11/26/24 08:52
11/26/24 08:52
Troponin I 0.043 ng/ml H* 11/26/24 08:52
Gkf-B-Azhnpohgxze Pept 61019 pg/ml 11/26/24 08:52
Impression / Plan
-
PCP: Dr. Gaxiola
Primary Job Service Specialist: Dr. Burks, last seen 2016
Impression:
Presented with atrial tachycardia and CHF 11/26/2024
Paroxysmal atrial tachycardia with RVR
Paroxysmal atrial flutter s/p successful EVARISTO/CV 01/26/24
Paroxysmal atrial fibrillation s/p PVI 10/2023
Chronic Eliquis OAC
Acute on chronic HFpEF
Improved CM, EF as low as 35% by EVARISTO 01/26/2024 and improved to 50% by echo 10/08/2024
Moderate MR by echo 10/08/2024
Mild to moderate aortic regurgitation
Chronic LBBB
h/o sinus bradycardia
History of vasovagal syncope
HTN
HLD
LETICIA on CPAP
prostate cancer s/p prostatectomy
Retinal tear of R eye
Lexiscan nuclear stress test 06/07/2022: Fixed defect in basal inferolateral, basal inferior, basal inferoseptal, mid inferior and apical inferior segments consistent with infarction with superimposed soft tissue attenuation, fixed defect in mid
anteroseptal defect consistent with infarction, EF 45%
Echo 08/2022: EF 55%, abnormal paradoxical septal motion consistent with left bundle branch block, mild concentric LVH, severely dilated LA, moderate MR, mild to moderate AR, mild TR, PAP 43 mmHg, trivial pericardial effusion
EVARISTO 01/26/2024: Global hypokinesis with regional variation, abnormal septal motion consistent with left bundle branch block, EF 35%, no thrombus detected in MENDEZ, moderate central MR, mild to moderate eccentric AR
Echo 10/08/2024: EF 50%, moderate MR, mild to moderate aortic regurgitation
Plan:
-Patient came to the ER today with symptoms of orthopnea and cardiology is consulted for atrial tachycardia and acute HF. Patient reports receiving a flu shot the Tuesday before and then starting on he felt an odd sensation in
his chest and checked his Apple Watch that showed his HR was 120 when his usual HR is 50-60. The patient called the office and was instructed to increase his dose of metoprolol and he had a 7-day monitor applied. His monitor looked like atrial
tachycardia and the metoprolol dose was increased again. Despite increasing doses of metoprolol his HR in the 120s persisted and then in the last 3 days he started with symptoms of orthopnea and POTTER. He denies any chest pain. Patient usually
takes Lasix 20 mg PO daily and reports compliance. Patient has history of atrial arrhythmia with paroxysmal A-fib and previous PVI 10/2023 and then he had an episode of atrial flutter that was successfully treated with EVARISTO/CV 01/26/2024 and at that
time his EF dropped to 35%, but then improved with buddhism of SR. He denies missing any doses of Eliquis.
-ECG reviewed by me looks like atrial tachycardia with RVR
-Patient appears to have new paroxysmal Atach and acute HF. Plan will be for diuresis and rhythm control.
-Cardizem gtt started in the ER and is running at 15 mg/hr. patient has been taking his usual dose of Toprol-XL 50 mg HS as well.
-Patient is interested in rhythm control and is willing to start amiodarone, will load with amiodarone 400 mg TID starting now.
-If patient fails to convert he would be agreeable to CV prior to discharge. Patient says he has not missed any doses of Eliquis.
-Patient would also be interested in possible ablation if he has recurrent atrial arrhythmia or is intolerant to amiodarone.
-Patient has a history of HF and CM related to atrial arrhythmia. EF was as low as 35% in the setting of rapid atrial flutter 01/2024, EF then recovered and was stable by most recent echo 10/08/2024. Recheck echo now.
-Agree with attempts at diuresis, patient was taking Lasix 20 mg PO daily prior to admission and recommend Lasix 40 mg IV daily and consider increasing to BID pending response to diuresis
-Continue Toprol-XL as above, may need to lower dose as patient has a history of bradycardia in SR
-Would also continue outpatient dose of lisinopril 5 mg daily
-Pending echo can consider addition of aldosterone antagonist or SGLT2 inhibitor
--- NOTE | 2024-11-26 12:20 | CM ---
CM met with pt bedside
Pt resides with his spouse in a 3SH with 1 CONTRERAS through front and 4-5 CONTRERAS through back
1st floor has kitchen and powder room
14 steps up to 2nd floor sleeping and bathing area/walk in shower
14 steps up to 3rd floor TV room
Pt is independent with his ADLs, no ADs, drives+
Utilizes a cpap each night
PCP- Raul Gaxiola
Rx- Kandy Hess
Pt does not have Rx plan, pays jeong for meds and buys [facility] [facility] [employer]
Denies financial insecurities
Discharge Disposition- anticipate home, follow for needs
[2024-11-26] MEDS: PACERONE 400 MG PO ×2 (12:52→19:50)
--- NOTE | 2024-11-26 14:38 | PTCARENOTE ---
Patient received from ED. Walked into room. Cardizem at 15mg/hr A-fib BBB HR 80-120's, BP 114/69, no edema. Denies shortness of breath 4 liters NC, 98%, lungs crackles left base, diminished on the right base, orthopneic, HOB elevated, denies
shortness of breath at rest. Plan of care reviewed, call gregorio in reach
[2024-11-26 15:01] LABS: Troponin I 0.045 ng/ml
[2024-11-26] MEDS: ELIQUIS 5 MG PO (19:51)
[2024-11-26] MEDS: MELATONIN 5 MG PO (22:37)
[2024-11-26 23:27] LABS: Troponin I 0.042 ng/ml
[2024-11-27] VITALS (8 sets, daily range): BP systolic 95–114; BP diastolic 61–77; BMI 22.2
--- NOTE | 2024-11-27 00:05 | PTCARENOTE ---
Patient received at change of shift resting in the bed. Afib on the monitor. HR varies from 80s-120s. Diltiazem gtt infusing at 15mg/hr. The patient denies pain but endorses POTTER and orthopnea. Denies palpitations. Oxygen saturation on 2L NC 96-98%.
Discussed plan of care. Call gregorio within reach. Care ongoing.
[2024-11-27 04:24] LABS: Hematocrit 37.6 % (39.0-52.0); Hemoglobin 13.2 g/dL (13.0-18.0); Mean Corp Hgb Conc. 35.1 g/dL (33.0-37.0); Mean Corpuscular Volume 93.1 fL (80.0-94.0); Nucleated Red Blood Cells % 0 % (-); Platelet Count 141 10^3/uL (130-400); Red Cell Dist. Width 13.2 % (11.5-14.5)
[2024-11-27 04:45] LABS: Blood Urea Nitrogen 32 mg/dl (9-20); Calcium 8.4 mg/dl (8.4-10.2); Carbon Dioxide 22 mmol/L (22-30); Chloride 103 mmol/L (98-107); Estimated Creatinine Clearance 49 ml/min; Glucose 86 mg/dl (70-99); Potassium 4.0 mmol/L (3.5-5.1); Sodium 131 mmol/L (135-145); eGFR > 60.00
--- NOTE | 2024-11-27 08:54 | W.PN.CARDCBS ---
Addendum entered and electronically signed by Iftikhar Harmon MD 11/27/24 13:39:
Attending addenduM:
I reviewed echocardiogram and LVEF is now severely depressed. EF was in normal range on last echocardiogram. Will do the following
- Agree with oral Toprol XL at 25mg po bid
- Restart lisinopril 5mg daily and follow renal function
- Discontinue IV diltiazem now on amiodarone and with severe LV dysfunction
- Hopefully EF will improve with better HR control and out of flutter
- Will need titration of heart failure medications as HR and BP tolerate
Addendum entered and electronically signed by Iftikhar Harmon MD 11/27/24 12:04:
Attending addendum: Patient seen and examined. PA note reviewed and findings independently confirmed by me. Patient has been feeling well.
Telemetry: Atypical atrial flutter versus atrial tachycardia
GEN: AAO x 3. No acute distress
HEENT: NC/AT, sclera are anicteric,
LUNGS: Clear to bases bilaterally. No wheezing
CV: Irregular and tachycardic. Normal S1-S2. No murmur
ABD : Soft, Bowel sounds are present.
EXT: No CCE
NEURO: No focal neurologic deficits
RECOMMENDATION:
-Will change IV to p.o. furosemide
- Continue oral amiodarone loading at 300 mg 3 times daily
- Planned EVARISTO cardioversion
- Continue oral anticoagulation with Eliquis 5 mg p.o. twice daily
- Would consider EP evaluation for potential ablation in the future
Original Note:
Today's Communication / Plan
-
Continue p.o. amiodarone 400 mg 3 times daily, IV Cardizem gtt.
Resume Toprol 25 mg daily
N.p.o. after midnight for cardioversion in a.m.
Continue Eliquis
Continue IV Lasix with plan to transition to p.o. in a.m.
Impression / Plan
-
PCP: Dr. Gaxiola
Primary Flat Examiner: Dr. Burks, last seen 2016
Impression:
Presented with atrial tachycardia and CHF 11/26/2024
Paroxysmal atrial tachycardia with RVR
Paroxysmal typical atrial flutter s/p successful EVARISTO/CV 01/26/24
Paroxysmal atrial fibrillation s/p PVI 10/2023
Chronic Eliquis OAC
Acute on chronic HFpEF
Improved CM, EF as low as 35% by EVARISTO 01/26/2024 and improved to 50% by echo 10/08/2024
Moderate MR by echo 10/08/2024
Mild to moderate aortic regurgitation
Chronic LBBB
h/o sinus bradycardia
History of vasovagal syncope
HTN
HLD
LETICIA on CPAP
prostate cancer s/p prostatectomy
Retinal tear of R eye
Lexiscan nuclear stress test 06/07/2022: Fixed defect in basal inferolateral, basal inferior, basal inferoseptal, mid inferior and apical inferior segments consistent with infarction with superimposed soft tissue attenuation, fixed defect in mid
anteroseptal defect consistent with infarction, EF 45%
Echo 08/2022: EF 55%, abnormal paradoxical septal motion consistent with left bundle branch block, mild concentric LVH, severely dilated LA, moderate MR, mild to moderate AR, mild TR, PAP 43 mmHg, trivial pericardial effusion
EVARISTO 01/26/2024: Global hypokinesis with regional variation, abnormal septal motion consistent with left bundle branch block, EF 35%, no thrombus detected in MENDEZ, moderate central MR, mild to moderate eccentric AR
Echo 10/08/2024: EF 50%, moderate MR, mild to moderate aortic regurgitation
Plan:
- Patient presented with his typical symptoms of atrial arrhythmia which include fatigue and dyspnea
- Noted to be in atrial tachycardia with RVR
- Being loaded with amiodarone 400 mg 3 times daily. EKG 11/27 with stable QTc compared to prior, continue to monitor
- Continue IV Cardizem. Will resume Toprol 25 mg daily today. Of note he has a history of bradycardia and sinus rhythm, so will need to monitor on current rate/rhythm control regimen
- Continue Eliquis 5 mg twice daily, patient denies missed outpatient doses
- N.p.o. after midnight for cardioversion in a.m.
- Continue IV Lasix for element of acute CHF. Would plan to transition to p.o. in AM. Creatinine stable at 1.2
-Echo pending. He has a history of a tachy induced cardiomyopathy in the setting of rapid aflutter in the past which subsequently recovered with church of sinus rhythm
- Patient eager for discharge in a.m.
- Would arrange for outpatient EP evaluation to discuss repeat ablation
Progress Note - Flat Examiner
Subjective
Date of Service: November 27, 2024
Reports fatigue and dyspnea consistent with his arrhythmia symptoms
Objective
Labs:
11/27/24 04:01
11/27/24 04:01
Labs
Hgb 13.2 g/dL (13.0-18.0) 11/27/24 04:01
Hct 37.6 % (39.0-52.0) L 11/27/24 04:01
Plt Count 141 10^3/uL (130-400) D 11/27/24 04:01
Sodium 131 mmol/L (135-145) L 11/27/24 04:01
Potassium 4.0 mmol/L (3.5-5.1) 11/27/24 04:01
BUN 32 mg/dl (9-20) H 11/27/24 04:01
Creatinine 1.2 mg/dL (0.7-1.3) 11/27/24 04:01
Glucose 86 mg/dl (70-99) 11/27/24 04:01
Troponins
11/26/24 11/26/24 11/26/24
08:52 14:21 22:41
Troponin I 0.043 H* 0.045 H* 0.042 H*
11/27/24
05:57
Troponin I Cancelled
Vital Signs and I&O:
Vital Signs
Temp Pulse Resp BP Pulse Ox
97.7 F 117 20 110/70 95
11/27/24 08:39 11/27/24 08:39 11/27/24 08:39 11/27/24 03:56 11/27/24 08:39
Vital Signs
Temp Pulse Resp BP Pulse Ox
97.7 F 117 20 110/70 95
11/27/24 08:39 11/27/24 08:39 11/27/24 08:39 11/27/24 03:56 11/27/24 08:39
Intake & Output
11/25/24 11/26/24 11/27/24 11/28/24
07:59 07:59 07:59 07:59
Intake Total 260 / 260
Output Total 2049 / 2049
Balance -1789 / -1789
Physical Exam
Physical Exam
GEN: No distress, awake, alert, oriented x3. Sitting in chair
HEENT: supple, anicteric, mmm, EOMI
LUNGS: CTA bilaterally, no wheezes/rales
CV: Irreg, S1/S2, no murmur
ABD: soft, BS+, NT/ND
EXT: No cyanosis, clubbing, edema
NEURO: Gross non-focal
SKIN: Warm, pink, dry. No rash
[2024-11-27] MEDS: PACERONE 400 MG PO ×3 (09:10→22:46)
[2024-11-27] MEDS: LIPITOR 20 MG PO (09:10)
[2024-11-27] MEDS: VITAMIN D3 (cholecalciferol) 25 MCG PO (09:10)
[2024-11-27] MEDS: ELIQUIS 5 MG PO ×2 (09:10→20:32)
[2024-11-27] MEDS: LASIX 40 MG IV (09:11)
--- NOTE | 2024-11-27 10:01 | PN.CDI ---
CDI
- -
CDI:
Physician Documentation Request
Admit Date: 11/26/24 11:43
Dear Cardiology,
Please review the following and provide your response in the progress notes.
Clinical Indicators:
- 11/27 Cardiology 'Paroxysmal atrial flutter'
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
- 11/26 EKG - Atrial flutter with 2 to 1 block...rate 121bpm
- 11/26 EKG - Atrial flutter with variable A-V block...[id number]
- 11/27 EKG - Atrial flutter with varial A-V block...rate 234bpm
If possible, please provide further specificity regarding atrial flutter, such as:
Typical Atrial Flutter - Type I: Classic or common atrial flutter, Rate is 240-340 beats/min. Usually responds to atrial pacing.
Atypical Atrial Flutter - Type II: Less common and more unstable. Rate is 340-440 beats/min. Less responsive to atrial pacing.
Other - please specify
Use of terms such as suspected, likely, concern for, or probable (associated with a specific diagnosis that is being evaluated, monitored, or treated as if it exists) are acceptable and can be coded in the inpatient setting, when documented at the
time of discharge.
Thank you,
Tori Silverman RN
CDI Specialist
Please use your independent medical judgment in providing your response.
[2024-11-27] MEDS: CARDIZEM 125 IV ×2 (10:07→17:44)
[2024-11-27] MEDS: TOPROL XL 25 MG PO ×2 (10:07→20:33)
--- NOTE | 2024-11-27 11:11 | CM ---
Chart reviewed. Patient OOB sitting in the chair waiting to go for his cardioversion tomorrow. Patient is independent of ADLS, lives with his in a 3 STH, 4STE,, 0 DME. Plan is for the patient to return home. CM to follow
--- NOTE | 2024-11-27 14:39 | W.PN.HOSP.TC ---
Addendum entered and electronically signed by Joselito Doran DO 11/28/24 08:10:
Troponin elevation due to nonischemic myocardial injury
Original Note:
Today's Communication/Plan
-
Assessment / Plan
Assessment / Plan
General: No Apparent Distress, Comfortable and Conversant
HEENT: NormoCephalic, Moist mucous membranes, Atraumatic
Respiratory: Clear and Non Labored Respirations
Cardiac: A-flutter, heart rate around 115
GI: Soft, Non Tender, Non Distended and Normal Bowel Sounds
Musculoskeletal: Trace lower extremity edema, no deformity
Skin: Warm and dry
: NO Rose
Neuro: Awake, Alert, Nonfocal/grossly intact
Psych: Calm and Intact Judgment/Insight
Mr. Lozada is an 83-year-old male with a medical history of atrial flutter (EVARISTO/cardioversion 01/26/2024), paroxysmal A-fib (PVI 10/2023), chronic LBBB, nonischemic cardiomyopathy (suspect transient systolic dysfunction due to atrial flutter with RVR,
EF now recovered), HFpEF (grade 3 diastolic dysfunction), moderate mitral and aortic regurgitation, LETICIA (CPAP at night), and prostate cancer (status post prostatectomy) who is in with 3 weeks of tachycardia with progressively worsening shortness of
breath. He also reports orthopnea and early satiety over the past few days prior to arrival. He has been in contact with his primary front desk monitor for dosage adjustments of his beta-myron during the past few weeks. His metoprolol succinate was
initially increased from 12.5 mg/day up to 25 mg a day without improvement in his tachycardia. His dose was later increased to 50 mg/day which he took at night but was unable to tolerate saying that it made him feel terrible. Alternatively he
trialed metoprolol succinate 25 mg in the morning and 25 mg at night. However his heart rate has unfortunately remained uncontrolled. In the ED today, he was found to be hypoxic with a pulse ox in the mid 80s on room air in the ED. His pulse ox
recovered to the high 90s on 4 L via nasal cannula. He has been admitted for further evaluation and management of a flutter with uncontrolled heart rate and acute on chronic HFpEF.
A flutter with RVR:
- Remains maxed out diltiazem drip at 15 mg/h
- Amiodarone 40 mg p.o. 3 times daily added by cardiology
- Continue Toprol succinate 25 mg p.o. twice daily
- Cardiology planning cardioversion tomorrow 11/28
- Telemetry monitoring
- Anticoagulation with Eliquis
Acute on chronic HFpEF:
- He has trace lower extremity edema and significantly elevated BNP, suspect related to his uncontrolled heart rate
- Was given a dose of IV Lasix x 1 in the ED
- Will continue with oral Lasix 40 mg daily
- Afterload reduction with home dose lisinopril 5 mg daily
- Control tachycardia as outlined above
- Appreciate cardiology input
Elevated troponin:
- Do not suspect acute ischemia, troponin plateaued at 0.04
Hyponatremia:
- Appears chronic and stable with serum sodium around 131
- No neurologic abnormalities
- Monitor
DVT prophylaxis: Eliquis
CODE STATUS: Full code
Total time spent on today's encounter was 52 minutes
Anticipated Discharge: 24 - 48 hours
Subjective/Interval History
-
Date of Service: November 27, 2024
Patient was seen and examined at bedside this morning. Heart rate still uncontrolled. Started on amiodarone by cardiology. Planning cardioversion tomorrow.
Objective Data
-
Labs:
Laboratory Results
11/27/24
04:01
WBC 7.2
Hgb 13.2
Hct 37.6 L
Plt Count 141 D
Sodium 131 L
Potassium 4.0
Chloride 103
Carbon Dioxide 22
BUN 32 H
Creatinine 1.2
Glucose 86
Calcium 8.4
Vital Signs:
Vital Signs
Temp Pulse Resp BP Pulse Ox
97.7 F 113 18 110/70 96
11/27/24 12:29 11/27/24 12:29 11/27/24 12:29 11/27/24 03:56 11/27/24 12:29
I&O
11/26/24 11/27/24 11/28/24
06:59 06:59 06:59
Intake Total 260 / 260
Output Total 2049 / 2049 200 / 200
Balance -1790 / -1790 -200 / -200
Review of Systems
-
History Source: Patient
All other systems: Reviewed and negative
Psych: Reports Other (Insomnia)
Physical Exam
-
General: No Apparent Distress
--- NOTE | 2024-11-27 18:44 | PTCARENOTE ---
Cardizem gtt stopped per MAR
--- NOTE | 2024-11-27 21:56 | PTCARENOTE ---
Received pt at change of shift OOB in chair. ST with BBBC on tele, HR 110's. EKG obtained confirming pt in sinus. pt denies CP at this time, reports slight SOB. 2LO2 applied to pt, pt sating 96%. Updated pt on plan of care and NPO status after
midnight. pt verbalizes understanding. Call gregorio within reach.
[2024-11-27] MEDS: MELATONIN 5 MG PO (22:46)
[2024-11-28] VITALS (10 sets, daily range): BP systolic 109–131; BP diastolic 66–85; BMI 22.2
[2024-11-28 02:43] LABS: Hematocrit 40.8 % (39.0-52.0); Hemoglobin 14.4 g/dL (13.0-18.0); Mean Corp Hgb Conc. 35.3 g/dL (33.0-37.0); Mean Corpuscular Volume 90.9 fL (80.0-94.0); Nucleated Red Blood Cells % 0 % (-); Platelet Count 186 10^3/uL (130-400); Red Cell Dist. Width 13.3 % (11.5-14.5)
[2024-11-28 02:58] LABS: Blood Urea Nitrogen 42 mg/dl (9-20); Calcium 9.3 mg/dl (8.4-10.2); Carbon Dioxide 18 mmol/L (22-30); Chloride 99 mmol/L (98-107); Estimated Creatinine Clearance 46 ml/min; Glucose 124 mg/dl (70-99); Potassium 4.2 mmol/L (3.5-5.1); Sodium 129 mmol/L (135-145); eGFR 55.19
[2024-11-28] MEDS: ELIQUIS 5 MG PO ×2 (07:36→20:21)
--- NOTE | 2024-11-28 07:54 | PN.CDI ---
CDI
- -
CDI:
Physician Documentation Request
Admit Date: 11/26/24 11:43
Dear Doctor Andreea,
Please review the following and provide your response in the progress notes.
Clinical Indicators:
- Patient admit with acute on chronic HFpEF and atrial flutter with RVR
- 11/27 PN 'Elevated troponin: Do not suspect acute ischemia'
- Troponin labs
Laboratory Tests
11/26/24 11/26/24 11/26/24
08:52 14:21 22:41
Troponin I 0.043 H* 0.045 H* 0.042 H*
Please clarify the following regarding the documented elevated troponins:
Non-ischemic myocardial injury
Clinically insignificant abnormal lab value
Other (please specify)
Use of terms such as suspected, likely, concern for, or probable (associated with a specific diagnosis that is being evaluated, monitored, or treated as if it exists) are acceptable and can be coded in the inpatient setting, when documented at the
time of discharge.
Thank you,
Tori Silverman RN
CDI Specialist
Please use your independent medical judgment in providing your response.
--- NOTE | 2024-11-28 08:33 | PTCARENOTE ---
late note due to pt care.
Pt left for laboratory phlebotomist around 0745. Given eliquis prior to CV. Report given to track repair laborer RN. Rambo on tele.
[2024-11-28] MEDS: PACERONE 400 MG PO (09:12)
[2024-11-28] MEDS: LIPITOR 20 MG PO (09:13)
[2024-11-28] MEDS: LASIX 40 MG PO (09:13)
[2024-11-28] MEDS: ZESTRIL 5 MG PO (09:13)
[2024-11-28] MEDS: VITAMIN D3 (cholecalciferol) 25 MCG PO (09:13)
[2024-11-28] MEDS: TOPROL XL 25 MG PO ×2 (09:13→20:22)
--- NOTE | 2024-11-28 10:33 | W.PN.CARDCBS ---
Addendum entered and electronically signed by Ramiro Burks MD 11/28/24 11:17:
I saw and examined the patient.
The FOOD PREPARATION WORKER or PA's note was reviewed and I agree with the note.
Comment: General: Well developed, well nourished in NAD.
Neck: Supple, no JVD, HJR, carotids +2 B/L, no bruits bilaterally.
Heart: Non displaced PMI, RRR, no murmurs, No S3, S4, no rubs.
Lungs: Scattered rhonchi
Extremities: No clubbing, cyanosis or edema bilaterally.
Neuro: Grossly nonfocal, awake, alert and oriented x3.
He continues to improve. He is status post cardioversion to sinus rhythm. Will follow overnight on telemetry given mildly increased QT interval. Will decrease amiodarone to 200 mg p.o. twice daily and continue Lasix, Toprol, and lisinopril given
reduced ejection fraction which hopefully will improve with rate control and sinus rhythm. Consider eventual redo ablation. Hopefully MR will resolve with treatment of cardiomyopathy and is likely due to dilated left ventricle
Original Note:
Today's Communication / Plan
-
s/p successful CV
add farxiga. continue toprol, lisinopril
decrease amiodarone to 200mg BID for 4 weeks then decrease to 200mg daily. repeat EKG in AM to reassess QTc as prolonged in SR
lasix 40mg po daily
BMP/proBNP in 1 week
likely for DC in AM
Impression / Plan
-
PCP: Dr. Gaxiola
Primary Trashman: Dr. Burks, last seen 2016
Impression:
Acute on chronic HFrEF
Paroxysmal atrial tachycardia vs atypical aflutter with RVR s/p CV 11/28/24
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
Paroxysmal typical atrial flutter s/p successful EVARISTO/CV 01/26/24
Paroxysmal atrial fibrillation s/p PVI 10/2023
Chronic Eliquis OAC
Acute on chronic HFpEF
Improved CM, EF as low as 35% by EVARISTO 01/26/2024 and improved to 50% by echo 10/08/2024
Moderate MR by echo 10/08/2024
Mild to moderate aortic regurgitation
Chronic LBBB
h/o sinus bradycardia
History of vasovagal syncope
HTN
HLD
LETICIA on CPAP
prostate cancer s/p prostatectomy
Retinal tear of R eye
Lexiscan nuclear stress test 06/07/2022: Fixed defect in basal inferolateral, basal inferior, basal inferoseptal, mid inferior and apical inferior segments consistent with infarction with superimposed soft tissue attenuation, fixed defect in mid
anteroseptal defect consistent with infarction, EF 45%
Echo 08/2022: EF 55%, abnormal paradoxical septal motion consistent with left bundle branch block, mild concentric LVH, severely dilated LA, moderate MR, mild to moderate AR, mild TR, PAP 43 mmHg, trivial pericardial effusion
EVARISTO 01/26/2024: Global hypokinesis with regional variation, abnormal septal motion consistent with left bundle branch block, EF 35%, no thrombus detected in MENDEZ, moderate central MR, mild to moderate eccentric AR
Echo 10/08/2024: EF 50%, moderate MR, mild to moderate aortic regurgitation
Echo 11/27/2024: EF 18%, bilateral atrial dilatation, mild to moderate AI, moderate to severe MR with very eccentric jet directed toward free wall, mild TR, PAP 46 mmHg
Plan:
- Patient presented with his typical symptoms of atrial arrhythmia which include fatigue and dyspnea
- Noted to be in atrial tachycardia with RVR status post successful cardioversion 11/28
- Being loaded with amiodarone 400 mg 3 times daily. QTc more prolonged now that patient back in sinus rhythm by review of EKG, will lower amiodarone dose to 200 mg twice daily to continue for 4 weeks upon discharge then decrease to 200 mg daily
- Continue Eliquis 5 mg twice daily
- echo with results as above, EF down to 18% and mod to severe MR, reviewed with patient 11/28. He has a history of a tachy induced cardiomyopathy in the setting of rapid aflutter in the past which subsequently recovered with holiness of sinus
rhythm
- Continue Toprol 25 mg twice daily. Of note he has a history of bradycardia in sinus rhythm, so will need to monitor on current rate/rhythm control regimen. lisinopril added this admission. CM to assess cost to patient of [facility] and started
today.
- Continue po lasix 40mg daily. Cr stable
- BMP/proBNP in 1 week upon DC
- will need OP follow up of MR, mod to severe by echo 11/27/24
- likely for DC in AM
- Would arrange for outpatient EP evaluation to discuss repeat ablation
- d/w nursing, hospitalist
Progress Note - Trashman
Subjective
Date of Service: November 28, 2024
feeling well
Objective
Labs:
11/28/24 02:24
11/28/24 02:24
Labs
Hgb 14.4 g/dL (13.0-18.0) 11/28/24 02:24
Hct 40.8 % (39.0-52.0) 11/28/24 02:24
Plt Count 186 10^3/uL (130-400) D 11/28/24 02:24
Sodium 129 mmol/L (135-145) L 11/28/24 02:24
Potassium 4.2 mmol/L (3.5-5.1) 11/28/24 02:24
BUN 42 mg/dl (9-20) H 11/28/24 02:24
Creatinine 1.3 mg/dL (0.7-1.3) 11/28/24 02:24
Glucose 124 mg/dl (70-99) H 11/28/24 02:24
Troponins
11/26/24 11/26/24 11/26/24
08:52 14:21 22:41
Troponin I 0.043 H* 0.045 H* 0.042 H*
11/27/24
05:57
Troponin I Cancelled
Vital Signs and I&O:
Vital Signs
Temp Pulse Resp BP Pulse Ox
97.7 F 81 22 119/76 95
11/28/24 07:45 11/28/24 10:00 11/28/24 07:45 11/28/24 10:00 11/28/24 10:00
Vital Signs
Temp Pulse Resp BP Pulse Ox
97.7 F 81 22 119/76 95
11/28/24 07:45 11/28/24 10:00 11/28/24 07:45 11/28/24 10:00 11/28/24 10:00
Intake & Output
11/26/24 11/27/24 11/28/24 11/29/24
07:59 07:59 07:59 07:59
Intake Total 260 / 260 240 / 240
Output Total 2049 / 2049 1450 / 1450
Balance -1790 / -1790 -1210 / -1210
Physical Exam
Physical Exam
GEN: No distress, awake, alert, oriented x3
HEENT: supple, anicteric, mmm, eomi
LUNGS: CTA B/L, no wheezes/rales
CV: Reg, S1/S2, 1/6 murmur
ABD: soft, BS+, NT/ND
EXT: No cyanosis, clubbing. trace edema of B/L LE
NEURO: Gross non-focal
SKIN: Warm, pink, dry. No rash
--- NOTE | 2024-11-28 11:41 | CM ---
Reviewed chart. Met with Mr. Lozada to review discharge plans. He states prior to admission he resides with his spouse in a three story home with four steps to enter. He states he has a full flight of steps to get to bedroom/full bathroom. He
states he has a powder room on the first floor. He states prior to admission he was independent with ambulation and adls. He states he does not have any DME int he home. He states he does not have a prescription plan and uses a [employer] discount
card. [facility] will not tell me the cost of medication without as script. He states he has never had [facility]. Will need to see his current functional level to see if he will have any skilled care needs. Medical work-up in progress.
The discharge plan is to return home with his spouse when medically stable.
[2024-11-28] MEDS: FARXIGA 10 MG PO (11:47)
--- NOTE | 2024-11-28 14:06 | W.PN.HOSP.TC ---
Today's Communication/Plan
-
Assessment / Plan
Assessment / Plan
General: No Apparent Distress, Comfortable and Conversant
HEENT: NormoCephalic, Moist mucous membranes, Atraumatic
Respiratory: Clear and Non Labored Respirations
Cardiac: Sinus rhythm, heart rate around 80
GI: Soft, Non Tender, Non Distended and Normal Bowel Sounds
Musculoskeletal: Trace lower extremity edema, no deformity
Skin: Warm and dry
: NO Rose
Neuro: Awake, Alert, Nonfocal/grossly intact
Psych: Calm and Intact Judgment/Insight
Mr. Lozada is an 83-year-old male with a medical history of atrial flutter (EVARISTO/cardioversion 01/26/2024), paroxysmal A-fib (PVI 10/2023), chronic LBBB, nonischemic cardiomyopathy (suspect transient systolic dysfunction due to atrial flutter with RVR,
EF now recovered), HFpEF (grade 3 diastolic dysfunction), moderate mitral and aortic regurgitation, LETICIA (CPAP at night), and prostate cancer (status post prostatectomy) who is in with 3 weeks of tachycardia with progressively worsening shortness of
breath. He also reports orthopnea and early satiety over the past few days prior to arrival. He has been in contact with his primary instructor nurse for dosage adjustments of his beta-myron during the past few weeks. His metoprolol succinate was
initially increased from 12.5 mg/day up to 25 mg a day without improvement in his tachycardia. His dose was later increased to 50 mg/day which he took at night but was unable to tolerate saying that it made him feel terrible. Alternatively he
trialed metoprolol succinate 25 mg in the morning and 25 mg at night. However his heart rate has unfortunately remained uncontrolled. In the ED today, he was found to be hypoxic with a pulse ox in the mid 80s on room air in the ED. His pulse ox
recovered to the high 90s on 4 L via nasal cannula. He has been admitted for further evaluation and management of a flutter with uncontrolled heart rate and acute on chronic HFpEF.
A flutter with RVR:
- Status post successful electrical cardioversion this morning 11/28, now in sinus rhythm with heart rate around 80
- Diltiazem discontinued
- Decreased amiodarone dose to 200 mg p.o. twice daily
- Continue Toprol succinate 25 mg p.o. twice daily
- Continue telemetry monitoring overnight
- Anticoagulation with Eliquis
Acute on chronic combined systolic and diastolic heart failure:
- Previously LVEF had recovered to 50%, however now repeat echo shows LVEF 18% with moderate to severe mitral regurgitation
- Possibly due to uncontrolled heart rate, however arrhythmia may be due to valvular abnormality in the setting of severe MR with biatrial dilatation
- Will continue with oral Lasix 40 mg daily
- Afterload reduction with home dose lisinopril 5 mg daily
- Added Farxiga
- Appreciate cardiology input
Elevated troponin:
- Do not suspect acute ischemia, troponin plateaued at 0.04
Hyponatremia:
- Appears chronic and stable with serum sodium around 130
- No neurologic abnormalities
- Monitor
DVT prophylaxis: Eliquis
CODE STATUS: Full code
Total time spent on today's encounter was 54 minutes
Anticipated Discharge: 24 - 48 hours
Subjective/Interval History
-
Date of Service: November 28, 2024
Patient was seen and examined at bedside this morning. Underwent successful electrical cardioversion. Now in sinus rhythm with heart rate around 80.
Objective Data
-
Labs:
Laboratory Results
11/28/24
02:24
WBC 9.4
Hgb 14.4
Hct 40.8
Plt Count 186 D
Sodium 129 L
Potassium 4.2
Chloride 99
Carbon Dioxide 18 L
BUN 42 H
Creatinine 1.3
Glucose 124 H
Calcium 9.3
Vital Signs:
Vital Signs
Temp Pulse Resp BP Pulse Ox
97.4 F 89 18 110/82 92
11/28/24 11:53 11/28/24 13:00 11/28/24 11:53 11/28/24 11:51 11/28/24 12:00
I&O
11/27/24 11/28/24 11/29/24
06:59 06:59 06:59
Intake Total 260 / 260 240 / 240
Output Total 2049 / 2049 1450 / 1450 300 / 300
Balance -1790 / -1790 -1210 / -1210 -300 / -300
Review of Systems
-
History Source: Patient
All other systems: Reviewed and negative
Physical Exam
-
General: No Apparent Distress
[2024-11-28] MEDS: PACERONE 200 MG PO (20:21)
--- NOTE | 2024-11-28 21:00 | PTCARENOTE ---
Received pt at change of shift OOB in chair. SA-SR with BBBC on tele, HR 70's-80's. pt denies CP or SOB at this time. pt refused CPAP tonight and is wearing 2LO2 instead. Updated pt on plan of care. pt verbalizes understanding. Call gregorio within
reach.
[2024-11-28] MEDS: MELATONIN PO ×2 (22:50→22:55)
--- NOTE | 2024-11-28 23:16 | PTCARENOTE ---
Received pt at change of shift OOB in chair. Afib on tele, HR 70's-80's. pt denies CP or SOB at this time. pt refused CPAP tonight and is wearing 2LO2 instead. Updated pt on plan of care. pt verbalizes understanding. Call gregorio within reach.
[2024-11-29 03:56] VITALS: BP 114/75
[2024-11-29 04:32] VITALS: BMI 22.1
[2024-11-29 04:48] LABS: Hematocrit 39.3 % (39.0-52.0); Hemoglobin 14.1 g/dL (13.0-18.0); Mean Corp Hgb Conc. 35.9 g/dL (33.0-37.0); Mean Corpuscular Volume 92.3 fL (80.0-94.0); Nucleated Red Blood Cells % 0 % (-); Platelet Count 167 10^3/uL (130-400); Red Cell Dist. Width 13.2 % (11.5-14.5)
[2024-11-29 05:05] LABS: Blood Urea Nitrogen 40 mg/dl (9-20); Calcium 9.0 mg/dl (8.4-10.2); Carbon Dioxide 21 mmol/L (22-30); Chloride 100 mmol/L (98-107); Estimated Creatinine Clearance 49 ml/min; Glucose 91 mg/dl (70-99); Potassium 3.9 mmol/L (3.5-5.1); Sodium 129 mmol/L (135-145); eGFR > 60.00
[2024-11-29 08:25] VITALS: BP 124/75
[2024-11-29] MEDS: FARXIGA 10 MG PO (09:55)
[2024-11-29] MEDS: ELIQUIS 5 MG PO (09:56)
[2024-11-29] MEDS: VITAMIN D3 (cholecalciferol) 25 MCG PO (09:56)
[2024-11-29] MEDS: LASIX 40 MG PO (09:56)
[2024-11-29] MEDS: LIPITOR 20 MG PO (09:56)
[2024-11-29] MEDS: PACERONE 200 MG PO (09:57)
[2024-11-29] MEDS: TOPROL XL 25 MG PO (09:57)
[2024-11-29] MEDS: ZESTRIL 5 MG PO (09:57)
--- NOTE | 2024-11-29 10:10 | CM ---
Addendum entered by Arlin Saldaña 11/29/24 11:36:
Gave him the free 30 day [employer] coupon to use.
Original Note:
Reviewed chart. Met with Mr. Lozada to review discharge plans. He states he is feeling better and maybe able to go home soon. Prior to admission he resides with his spouse in a three story home with four steps to enter. He has a full flight of
steps to get to bedroom/full bathroom. He has a powder room on the first floor. Prior to admission he was independent with ambulation and adls. He does not have any DME int he home. He does not have a prescription plan and uses a [employer] discount
card. Will need to see his current functional level to see if he will have any skilled care needs. Medical work-up in progress. The discharge plan is to return home with his spouse when medically stable.
--- NOTE | 2024-11-29 10:19 | W.PN.CARDCBS ---
Addendum entered and electronically signed by René Moise MD 11/29/24 11:07:
I saw and examined the patient.
The Client Relationship Executive's note was reviewed and I agree with the note.
Comment: Briefly, 83-year-old man past medical history of atrial fibrillation/flutter presenting in acute heart failure found to have new severe left ventricular systolic function in the setting of atrial tachycardia/flutter thought to be
tachycardia mediated cardiomyopathy.
Patient underwent direct-current cardioversion yesterday to restore sinus rhythm
Plan to discharge on amiodarone for rhythm control
Continue Eliquis for risk reduction of cardioembolic stroke
May ultimately benefit from EP study and repeat ablation
With new LV dysfunction plan to discharge on metoprolol, lisinopril and Farxiga
Overall appears euvolemic on exam today. Will discharge on 40 mg oral Lasix twice daily with plan for BMP in 1 week.
Stable for discharge from my perspective
Outpatient follow-up has been arranged
Original Note:
Today's Communication / Plan
-
po lasix 40mg BID
amiodarone 200mg BID for 4 weeks then decrease to 200mg daily
eliquis 5mg BID
toprol, lisinopril, farxiga for CM, suspected tachy induced
BMP/proBNP in 1 week
OP cardiac follow up arranged
Impression / Plan
-
PCP: Dr. Gaxiola
Primary Wheel Blocker: Dr. Burks, last seen 2016
Impression:
Acute on chronic HFrEF
Paroxysmal atrial tachycardia vs atypical aflutter with RVR s/p CV 11/28/24
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
Paroxysmal typical atrial flutter s/p successful EVARISTO/CV 01/26/24
Paroxysmal atrial fibrillation s/p PVI 10/2023
Chronic Eliquis OAC
Acute on chronic HFpEF
Improved CM, EF as low as 35% by EVARISTO 01/26/2024 and improved to 50% by echo 10/08/2024
Moderate MR by echo 10/08/2024
Mild to moderate aortic regurgitation
Chronic LBBB
h/o sinus bradycardia
History of vasovagal syncope
HTN
HLD
LETICIA on CPAP
prostate cancer s/p prostatectomy
Retinal tear of R eye
Lexiscan nuclear stress test 06/07/2022: Fixed defect in basal inferolateral, basal inferior, basal inferoseptal, mid inferior and apical inferior segments consistent with infarction with superimposed soft tissue attenuation, fixed defect in mid
anteroseptal defect consistent with infarction, EF 45%
Echo 08/2022: EF 55%, abnormal paradoxical septal motion consistent with left bundle branch block, mild concentric LVH, severely dilated LA, moderate MR, mild to moderate AR, mild TR, PAP 43 mmHg, trivial pericardial effusion
EVARISTO 01/26/2024: Global hypokinesis with regional variation, abnormal septal motion consistent with left bundle branch block, EF 35%, no thrombus detected in MENDEZ, moderate central MR, mild to moderate eccentric AR
Echo 10/08/2024: EF 50%, moderate MR, mild to moderate aortic regurgitation
Echo 11/27/2024: EF 18%, bilateral atrial dilatation, mild to moderate AI, moderate to severe MR with very eccentric jet directed toward free wall, mild TR, PAP 46 mmHg
Plan:
- Patient presented with his typical symptoms of atrial arrhythmia which include fatigue and dyspnea. suspects he has been in atach for ~21 days prior to admission
- Noted to be in atrial tachycardia with RVR status post successful cardioversion 11/28
- remains in SR with PACs and 3 brief runs of atach overnight. continue amiodarone 200mg BID for 4 weeks then decrease to 200mg daily. QTc was prolonged 11/28 on 400mg TID so dose reduced. repeat EKG to reeval QTc today
- Continue Eliquis 5 mg twice daily
- echo with results as above, EF down to 18% and mod to severe MR, reviewed with patient 11/28. He has a history of a tachy induced cardiomyopathy in the setting of rapid aflutter in the past which subsequently recovered with quaker of sinus
rhythm
- Continue Toprol 25 mg twice daily. Of note he has a history of bradycardia in sinus rhythm, so will need to monitor on current rate/rhythm control regimen. lisinopril and farxiga added this admission.
- diuresed this admission. will increase po lasix dose to 40mg BID for DC. Cr stable
- BMP/proBNP in 1 week upon DC
- will need OP follow up of MR, mod to severe by echo 11/27/24
- patient would like to be discharged today
- Would arrange for outpatient EP evaluation to discuss repeat ablation. Will need follow up echo to reassess EF and MR in 90 days.
- d/w nursing
Progress Note - Wheel Blocker
Subjective
Date of Service: November 29, 2024
looks well. no complaints of palpitations overnight. reports some continued POTTER.
Objective
Labs:
11/29/24 04:28
11/29/24 04:28
Labs
Hgb 14.1 g/dL (13.0-18.0) 11/29/24 04:28
Hct 39.3 % (39.0-52.0) 11/29/24 04:28
Plt Count 167 10^3/uL (130-400) 11/29/24 04:28
Sodium 129 mmol/L (135-145) L 11/29/24 04:28
Potassium 3.9 mmol/L (3.5-5.1) 11/29/24 04:28
BUN 40 mg/dl (9-20) H 11/29/24 04:28
Creatinine 1.2 mg/dL (0.7-1.3) 11/29/24 04:28
Glucose 91 mg/dl (70-99) 11/29/24 04:28
Troponins
11/26/24 11/26/24 11/27/24
14:21 22:41 05:57
Troponin I 0.045 H* 0.042 H* Cancelled
Vital Signs and I&O:
Vital Signs
Temp Pulse Resp BP Pulse Ox
97.9 F 83 15 124/75 97
11/29/24 08:23 11/29/24 09:00 11/29/24 08:23 11/29/24 08:25 11/29/24 09:51
Vital Signs
Temp Pulse Resp BP Pulse Ox
97.9 F 83 15 124/75 97
11/29/24 08:23 11/29/24 09:00 11/29/24 08:23 11/29/24 08:25 11/29/24 09:51
Intake & Output
11/27/24 11/28/24 11/29/24 11/30/24
07:59 07:59 07:59 07:59
Intake Total 260 / 260 240 / 240 480 / 480
Output Total 2049 / 2049 1450 / 1450 625 / 625
Balance -1790 / -1790 -1210 / -1210 -145 / -145
Physical Exam
Physical Exam
GEN: No distress, awake, alert, oriented x3
HEENT: supple, anicteric, mmm, eomi
LUNGS: CTA B/L, no wheezes/rales
CV: Reg, S1/S2, 1/6 murmur
ABD: soft, BS+, NT/ND
EXT: No cyanosis, clubbing. trace edema of B/L LE
NEURO: Gross non-focal
SKIN: Warm, pink, dry. No rash
[2024-11-29 11:11] VITALS: BP 105/65
--- NOTE | 2024-11-29 11:23 | W.DCSUMMARY ---
Discharge Summary
Discharge Data
Date of Admission: 11/26/24
Date of Discharge: 11/29/24
Total time spent discharging patient (in min): 55
-
Pending Results: No
Hospital Course
Mr. Lozada is an 83-year-old male with a medical history of atrial flutter (EVARISTO/cardioversion 01/26/2024), paroxysmal A-fib (PVI 10/2023), chronic LBBB, nonischemic cardiomyopathy (suspected transient systolic dysfunction due to atrial flutter with
RVR, EF now recovered), HFpEF (grade 3 diastolic dysfunction), moderate mitral and aortic regurgitation, LETICIA (CPAP at night), and prostate cancer (status post prostatectomy) who presented with 3 weeks of tachycardia with progressively worsening
shortness of breath. He also reports orthopnea and early satiety over the past few days prior to arrival. He had been in contact with his primary cable operator for dosage adjustments of his beta-myron during the past few weeks. His metoprolol
succinate was initially increased from 12.5 mg/day up to 25 mg a day without improvement in his tachycardia. His dose was later increased to 50 mg/day which he took at night but was unable to tolerate saying that it made him feel terrible.
Alternatively he trialed metoprolol succinate 25 mg in the morning and 25 mg at night. However his heart rate unfortunately remained uncontrolled.
In the ED at the time of presentation, he was found to be hypoxic with a pulse ox in the mid 80s on room air in the ED. His pulse ox recovered to the high 90s on 4 L via nasal cannula. Telemetry monitoring showed atrial flutter with uncontrolled
heart rate around 120. He was started on diltiazem drip. He was admitted for further evaluation and management of a flutter with uncontrolled heart rate and acute on chronic HFpEF.
His heart rate remained uncontrolled despite titrating up on IV diltiazem drip in addition to beta-blockade with scheduled metoprolol succinate 25 mg twice daily. Oral amiodarone was also added to his medication regimen. He underwent successful
electrocardioversion on the morning of 11/28 with christian of sinus rhythm with controlled heart rate which has remained around 80 bpm since that time. His shortness of breath resolved with controlled heart rate. Repeat echocardiogram showed
severely reduced ejection fraction of 18% (was 50% previously) with moderate to severe mitral regurgitation. He will be continued on oral Lasix 40 mg twice daily and his home dose of lisinopril 5 mg daily. He was started on Farxiga.
He will be discharged on amiodarone 200 mg twice daily in addition to continuing metoprolol succinate 25 mg twice daily for rate control. He will need to follow-up closely with cardiology after hospital discharge for ongoing management of his heart
failure and monitoring for recurrent arrhythmia with adjustments to his medication regimen as needed. At the time of hospital discharge he was medically stable.
General: No Apparent Distress, Comfortable and Conversant
HEENT: NormoCephalic, Moist mucous membranes, Atraumatic
Respiratory: Clear and Non Labored Respirations
Cardiac: Sinus rhythm, heart rate around 80
GI: Soft, Non Tender, Non Distended and Normal Bowel Sounds
Musculoskeletal: Trace lower extremity edema, no deformity
Skin: Warm and dry
: NO Rose
Neuro: Awake, Alert, Nonfocal/grossly intact
Psych: Calm and Intact Judgment/Insight
Discharge Plan
-
Patient Disposition: Home (Routine Discharge)
Discharge Diagnosis/Procedures: A-flutter with RVR, acute on chronic systolic and diastolic heart failure
Diet: 2 Gram Sodium and Restrict fluids to 48 oz
Activity: As tolerated
Blood Work: BMP/proBNP in 1 week
Specialty Instructions: Weigh Daily- Call MD for wt gain/loss 3 lbs overnight/5 lbs in 1 week
Activity Restrictions/Additional Instructions:
Mr. Lozada is an 83-year-old male with a medical history of atrial flutter (EVARISTO/cardioversion 01/26/2024), paroxysmal A-fib (PVI 10/2023), chronic LBBB, nonischemic cardiomyopathy (suspected transient systolic dysfunction due to atrial flutter with
RVR, EF now recovered), HFpEF (grade 3 diastolic dysfunction), moderate mitral and aortic regurgitation, LETICIA (CPAP at night), and prostate cancer (status post prostatectomy) who presented with 3 weeks of tachycardia with progressively worsening
shortness of breath. He also reports orthopnea and early satiety over the past few days prior to arrival. He had been in contact with his primary cable operator for dosage adjustments of his beta-myron during the past few weeks. His metoprolol
succinate was initially increased from 12.5 mg/day up to 25 mg a day without improvement in his tachycardia. His dose was later increased to 50 mg/day which he took at night but was unable to tolerate saying that it made him feel terrible.
Alternatively he trialed metoprolol succinate 25 mg in the morning and 25 mg at night. However his heart rate unfortunately remained uncontrolled.
In the ED at the time of presentation, he was found to be hypoxic with a pulse ox in the mid 80s on room air in the ED. His pulse ox recovered to the high 90s on 4 L via nasal cannula. Telemetry monitoring showed atrial flutter with uncontrolled
heart rate around 120. He was started on diltiazem drip. He was admitted for further evaluation and management of a flutter with uncontrolled heart rate and acute on chronic HFpEF.
His heart rate remained uncontrolled despite titrating up on IV diltiazem drip in addition to beta-blockade with scheduled metoprolol succinate 25 mg twice daily. Oral amiodarone was also added to his medication regimen. He underwent successful
electrocardioversion on the morning of 11/28 with christian of sinus rhythm with controlled heart rate which has remained around 80 bpm since that time. His shortness of breath resolved with controlled heart rate. Repeat echocardiogram showed
severely reduced ejection fraction of 18% (was 50% previously) with moderate to severe mitral regurgitation. He will be continued on oral Lasix 40 mg twice daily and his home dose of lisinopril 5 mg daily. He was started on Farxiga.
He will be discharged on amiodarone 200 mg twice daily in addition to continuing metoprolol succinate 25 mg twice daily for rate control. He will need to follow-up closely with cardiology after hospital discharge for ongoing management of his heart
failure and monitoring for recurrent arrhythmia with adjustments to his medication regimen as needed. At the time of hospital discharge he was medically stable.
Instructions: *[facility] Heart Failure Instructions
Referrals:
Ramiro Burks MD [Active, Cardiology] - 12/03/24 10:00 am
Referral Note: You have a cardiology follow-up appointment at the [facility] express office. Please call with questions
Chano Gaxiola MD [Family Provider, Internal Medicine]
Prescriptions:
New
dapagliflozin propanediol [Farxiga] 10 mg tablet
10 mg PO DAILY Qty: 30 3RF
furosemide 40 mg Tablet
40 mg PO BID@0800,1600 30 Days Qty: 60 0RF
amiodarone [Pacerone] 200 mg Tablet
200 mg PO BID 30 Days Qty: 60 0RF
Continued
atorvastatin 20 mg tablet
20 mg PO DAILY
therapeutic multivitamin Tablet
1 tab PO DAILY
ascorbic acid (vitamin C) [Vitamin C] 500 mg Tablet
500 mg PO DAILY
vitamin B complex Tablet
1 tab PO DAILY
cholecalciferol (vitamin D3) [Vitamin D3] 25 mcg (1,000 unit) Tablet
25 mcg PO DAILY
lisinopril 5 mg Tablet
5 mg PO DAILY
coenzyme Q10 [CoQ-10] 100 mg Capsule
100 mg PO DAILY
Eliquis 5 mg tablet
5 mg PO BID
Patient Comments:
Patient gets samples from their PCP.
metoprolol succinate [Toprol XL] 50 mg Tablet Extended Release 24 Hr
25 mg PO BID
Patient Comments:
taking 25mg bid
Discontinued
furosemide 20 mg Tablet
20 mg PO DAILY Qty: 30 1RF
Discharge Orders:
Discharge Patient (As Directed); Ordered 11/29/24
Ordered By: Joselito Doran
Care Plan Goals
Care Plan Goals:
Problem: Readiness for enhanced knowledge related to diagnosis and treatment plan
Goal: Understand your diagnosis and treatment plan needs, including medications if applicable.
Instructions: Know your diagnosis, underlying causes and treatment plan options, including medications if applicable. Consult with your health care team to learn about your diagnosis and treatment plan, including medications if applicable.
Discharge Date and Time
Print Language: HONG KONGER
--- NOTE | 2024-11-29 12:49 | PTCARENOTE ---
Pt seen by Aliya Irene NP and Dr.Thomas Kasper. Telemetry and IV device removed. Discharge instructions reviewed with pt regarding CHF guidelines, medications and their actions and possible side effects, reproting cares and concerns and follow up
appt's and lab work. Good understanding verbalized. Pt escorted out via wheelchair and discharged to home.
== END 2024-11-29 12:45 | disposition home or self-care (01) | DRG 291 ==
LOC: IVU 11:43
PROVIDERS: Internal Medicine; ADMITTING PHYSICIAN Internal Medicine; EMERGENCY PHYSICIAN Emergency Medicine; FAMILY PHYSICIAN Internal Medicine Geriatric Medicine; OTHER PHYSICIAN Internal Medicine Cardiovascular Disease
PROC: 5A2204Z Restoration of Cardiac Rhythm, Single (ICD-10-PCS; 2024-11-28)
DX: I11.0 Hypertensive heart disease with heart failure (principal); I50.43 Acute on chronic combined systolic (congestive) and diastolic (congestive) heart failure; I48.3 Typical atrial flutter; I47.19 Other supraventricular tachycardia; I5A Non-ischemic myocardial injury (non-traumatic); I42.8 Other cardiomyopathies; I44.7 Left bundle-branch block, unspecified; I48.0 Paroxysmal atrial fibrillation; Z90.79 Acquired absence of other genital organ(s); Z85.46 Personal history of malignant neoplasm of prostate; G47.33 Obstructive sleep apnea (adult) (pediatric); R09.02 Hypoxemia; I34.0 Nonrheumatic mitral (valve) insufficiency; E78.00 Pure hypercholesterolemia, unspecified; Z79.01 Long term (current) use of anticoagulants; Z79.899 Other long term (current) drug therapy; Z82.49 Family history of ischemic heart disease and other diseases of the circulatory system; G47.30 Sleep apnea, unspecified
CPT/HCPCS: 71046; 80048; 80053; 83880; 84484; 85025; 85027; 92960; 93005; 93308; 96374; 96375; 96376; 99285

== ENCOUNTER 2024-12-05 02:26 | Inpatient (IN) | payer MEDICARE, OTHER, SELFPAY ==
[2024-12-04 23:17] VITALS: BP 110/79
[2024-12-04 23:29] VITALS: BP 107/90
[2024-12-04 23:32] VITALS: BMI 22.2
[2024-12-04 23:55] LABS: Hematocrit 44.0 % (39.0-52.0); Hemoglobin 14.9 g/dL (13.0-18.0); Mean Corp Hgb Conc. 33.9 g/dL (33.0-37.0); Mean Corpuscular Volume 94.2 fL (80.0-94.0); Nucleated Red Blood Cells % 0 % (-); Platelet Count 199 10^3/uL (130-400); Red Cell Dist. Width 13.8 % (11.5-14.5)
[2024-12-05] VITALS (30 sets, daily range): BP systolic 90–120; BP diastolic 55–96; BMI 21.6
[2024-12-05 00:09] LABS: ALT (SGPT) 40 U/L (0-50); AST (SGOT) 38 U/L (17-59); Albumin 4.1 g/dl (3.5-5.0); Alkaline Phosphatase 62 U/L (38-126); Calcium 8.5 mg/dl (8.4-10.2); Carbon Dioxide 22 mmol/L (22-30); Chloride 98 mmol/L (98-107); Estimated Creatinine Clearance 31 ml/min; Glucose 166 mg/dl (70-99); Potassium 3.8 mmol/L (3.5-5.1); Sodium 132 mmol/L (135-145); Total Protein 6.8 g/dl (6.3-8.2); eGFR 35.00
[2024-12-05 00:19] LABS: Blood Urea Nitrogen 50 mg/dl (9-20)
[2024-12-05 00:20] LABS: Troponin I 0.026 ng/ml
[2024-12-05] MEDS: CARDIZEM 10 MG IV (00:47)
--- NOTE | 2024-12-05 01:03 | ED.GENMED ---
History of Present Illness
General
Chief Complaint: Breathing Problem
Source: patient and spouse
Exam Limitations: none
Time Seen by Provider: 12/05/24 00:11
Nursing documentation reviewed up to this point in time: agreed with
History of Present Illness
History of Present Illness:
83-year-old male with a past medical history of hypertension, hyperlipidemia, CHF, atrial fibrillation on Eliquis presents to the emergency room with his for evaluation of shortness of breath and palpitations. Of note patient was just admitted
to this hospital 11/26 until 11/29�he was admitted with rapid atrial fibrillation and CHF; found to have cardiomyopathy, reduced EF on echocardiogram. He was cardioverted to sinus rhythm on 11/29. He says that a few days after discharge he went back
into atrial fibrillation. He says that over the past few days he has had increasing shortness of breath and this evening he noticed that he was having some swelling in his legs. He says that when he laid down to bed tonight he became very
diaphoretic and was having significant shortness of breath and palpitations. Came to the ER for assessment. Denies any chest pain. He reports compliance with all medications. His manager engine is Dr. Burks.
Past History
Past History
ED Past Medical History: Arrthythmia (Atrial fibrillation), Cancer (Prostate), HTN, Hypercholesterolemia and Other (LETICIA, heart failure with preserved ejection fraction, left bundle branch block)
ED Past Surgical History: Cardiac (Cardiac ablation)
Social History
Tobacco: Non-smoker
Alcohol: None
Drug: None
Personal:
Living: with family
Review of Systems
Review of Systems
All Other Systems: ROS reviewed and negative except as documented in HPI and ROS
Constitutional: Denies fever
Respiratory: Reports trouble breathing; Denies cough
Cardiac: Reports diaphoresis and palpitations; Denies chest pain
ABD/GI: Denies abdominal pain or nausea
Musculoskeletal: Reports edema
Neurological: Denies dizzy or headache
Phy Exam
Physical Exam
Physical Exam:
General: Awake, alert, oriented x3; no acute distress
Head: Normocephalic, atraumatic
Eyes: Conjunctiva normal
Throat: Airway intact, handling secretions
Neck: Trachea midline, +JVD noted
Lungs: Breath sounds diminished at the lung bases; mild tachypnea but no hypoxia
Heart: Tachycardia with irregularly irregular, no murmurs, gallops, or rubs
Abd: Soft, non distended, nontender
Neuro: Grossly intact
Skin: no rash
Extremities: Trace edema around the ankles bilaterally
Scores
Heart Failure Risk
Heart Failure Risk Score: Yes
History of Stroke or TIA: No
History of intubation for respiratory distress: No
Heart rate on ED arrival >/= 110: Yes
SaO2 <90% on arrival on room air: No
HR >/=110 during 3min walk test (or too ill to perform test): Yes
ECG has acute ischemic changes: No
Urea >/=12mmol/L (BUN 33.6mg/dL): Yes
Serum CO2>/=35mmol/L: No
Troponin I or T elevated to DC Level (0.4mg/dL): No
NT-proBNP >/=5,000ng/L (5,000pg/ml): Yes
HF Risk Score: 4
Admission Status: HIGH RISK 26.1% Consider SNF treatment or admission to hospital
Heart Score for Chest Pain Patients
STEMI patient?: Not applicable
Withdrawal Assessment of Alcohol
Withdrawal Assessment Completed?: Not applicable
Course
Orders/Labs/Results
Orders:
Orders
12/04/24 23:20
Electrocardiogram (*1) Urgent
Reason for Study: Shortness of Breath
EKG- Treatment ONCE
12/04/24 23:35
Complete Blood Count/With Diff Urgent
Comprehensive Metabolic Panel Urgent
NT-proBNP Urgent
Troponin I Urgent
12/05/24 00:15
CR Chest Portable - 1 View Urgent
Comment:
Reason For Exam: sob
Reason Study Needs to be Portable: Unable to Transport
12/05/24 00:41
Diltiazem HCl [Cardizem] 10 mg IV NOW STA
12/05/24 01:02
Diltiazem INFUSION NOW X 1 BAG Diltiazem 125 mg/125 ml Nss [Cardizem] 125 mg in 125 ml IV NOW
Initial dose in mg/hr, then titrate:: 5
Titrate to keep:: Heart rate 80-100 bpm
Titrate by mg/hr:: 5 mg/hr
Frequency of titrations (minutes):: 15
Maximum dose in mg/hr:: 15
Furosemide [Lasix] 40 mg IV NOW STA
Abnormal Lab Results
12/04/24
23:35
RBC 4.67 L 10^6/uL
(4.70-6.10)
MCV 94.2 H fL
(80.0-94.0)
MCH 31.9 H pg
(27.0-31.0)
MPV 11.9 H fL
(7.4-10.4)
Absolute Lymphs (auto) 0.8 L 10^3/uL
(1.2-3.4)
Neutrophils % 81.3 H %
(42.2-75.2)
Lymphocytes % 12.1 L %
(20.5-51.1)
Sodium 132 L mmol/L
(135-145)
BUN 50 H mg/dl
(9-20)
Creatinine 1.9 H mg/dL
(0.7-1.3)
Glucose 166 H mg/dl
(70-99)
12/04/24 23:35
12/04/24 23:35
Vital Signs
Initial and Last Documented VS:
Initial Vital Signs
Pulse Resp BP Pulse Ox
139 20 110/79 96
12/04/24 23:17 12/04/24 23:17 12/04/24 23:17 12/04/24 23:17
Last Documented Vital Signs
Pulse Resp BP Pulse Ox
120 20 111/83 97
12/05/24 00:47 12/04/24 23:45 12/05/24 00:47 12/04/24 23:45
MDM/Problems Addressed
Differential Diagnosis Includes:
CHF, symptomatic A-fib, pneumonia, PE considered less likely on Eliquis
MDM/Problems Addressed:
83-year-old male presents for evaluation of palpitations, tachycardia and shortness of breath; recent admission for similar related to CHF and A-fib. He is markedly tachycardic with heart rate 140s on arrival, normotensive, mildly tachypneic but
not hypoxic, no fever. Physical exam as above�he appears to be in congestive heart failure. His EKG on arrival shows A-fib with RVR with left bundle branch block which is old. Will send labs including a CBC and a CMP, troponin, proBNP. Check
stat chest x-ray. IV diltiazem for rate control. Monitor closely reassess after the above.
Labs reviewed: CBC and CMP significant for renal insufficiency creatinine of 1.9 likely cardiorenal. Troponin negative, proBNP markedly elevated at 26,500. Chest x-ray shows vascular congestion with mild edema. Rate improved with diltiazem but
remains markedly tachycardic will start on infusion of diltiazem for rate control. IV Lasix for CHF. Will admit for continued management. Discussed with hospitalist for admission.
Chronic conditions affecting care:
A-fib, CHF
*Radiology
Radiology exam reviewed: preliminary read by ED provider
*Pulse Oximetry
SaO2: 97
Oxygen Mode of Delivery: Room air
Patient hypoxic: no (97%)
*EKG
Interpreted by ED Provider?: Yes
Heart Rate: 129
Rate: tachycardiac
Rhythm: a-fib
[place]: left axis deviation
Interval: normal interval
QRS Pattern: left bundle branch block
Ischemia: non-specific ST changes
*Critical Care Note
Total Time (30-74mins, 75-104mins- exclusive of procedures): 31
comment:
Critical care statement: A total of 31 minutes of critical care time was provided for this patient. This includes management of unstable vital signs, evaluation of the patient at bedside, frequent reassessment, discussion with
consultants/hospitalist, and review of pertinent medical records. This time was separate from time utilized to perform any aforementioned documented procedures
Data Reviewed
Review of Other/Old Records Reveals: Labs, Records, Progress Notes and Discharge Summary
Source: patient, records and spouse
Patient Management
Discussion with other providers: Hospitalist (Discussed with hospitalist)
Escalation/DeEscalation of care consider admission/obs:
Admission indicated
ED Attending Note
-
Portions of this chart may have been created with voice recognition software.� Occasional wrong word or��sound alike� substitutions may have occurred due to the inherent limitations of voice recognition software.
Discharge Plan
Departure
Patient Disposition: Admit
Date of Disposition: 12/05/24
Time of Disposition: 01:10
Admit to doctor: Piyush
Presentation/result/management discussed w/ accepting MD/DO: Hospitalist
Discharge Problem:
Atrial fibrillation with RVR, CHF (congestive heart failure)
Prescriptions:
No Action
atorvastatin 20 mg tablet
20 mg PO DAILY
therapeutic multivitamin Tablet
1 tab PO DAILY
ascorbic acid (vitamin C) [Vitamin C] 500 mg Tablet
500 mg PO DAILY
vitamin B complex Tablet
1 tab PO DAILY
cholecalciferol (vitamin D3) [Vitamin D3] 25 mcg (1,000 unit) Tablet
25 mcg PO DAILY
lisinopril 5 mg Tablet
5 mg PO DAILY
coenzyme Q10 [CoQ-10] 100 mg Capsule
100 mg PO DAILY
Eliquis 5 mg tablet
5 mg PO BID
Patient Comments:
Patient gets samples from their PCP.
metoprolol succinate [Toprol XL] 50 mg Tablet Extended Release 24 Hr
25 mg PO BID
Patient Comments:
taking 25mg bid
dapagliflozin propanediol [Farxiga] 10 mg tablet
10 mg PO DAILY Qty: 30 3RF
furosemide 40 mg Tablet
40 mg PO BID@0800,1600 30 Days Qty: 60 0RF
amiodarone [Pacerone] 200 mg Tablet
200 mg PO BID 30 Days Qty: 60 0RF
Referrals:
Chano Gaxiola MD [Family Provider, Internal Medicine]
Interventions
Interventions:
*Risk Screen - Suicide Last Done: 12/04/24 23:24
*General Assessment Last Done: 12/04/24 23:24
*Neglect/Abuse Screening Last Done: 12/04/24 23:24
*ED COVID-19 Vaccine History Last Done: 12/04/24 23:24
*ED Influenza Vaccine History Last Done: 12/04/24 23:24
ED- Cardiac Assessment Last Done: 12/04/24 23:32
ED- Pulmonary Assessment Last Done: 12/04/24 23:32
Discharge Date and Time
Print Language: INDONESIAN
[2024-12-05] MEDS: LASIX 40 MG IV ×3 (01:12→16:04)
[2024-12-05] MEDS: CARDIZEM 125 IV ×2 (01:20→13:22)
--- NOTE | 2024-12-05 01:38 | HPS.HSE ---
Family Physician
-
Family Physician: Chano Gaxiola
Chief Complaint
-
Shortness of breath
History of Present Illness
This is a 83-year-old male with past medical history significant for atrial flutter (EVARISTO/cardioversion 01/26/2024), paroxysmal A-fib (PVI 10/2023), chronic LBBB, nonischemic cardiomyopathy (suspect transient systolic dysfunction due to atrial flutter
with RVR, EF now recovered), HFpEF (grade 3 diastolic dysfunction), LETICIA (CPAP at night), and prostate cancer (status post prostatectomy), who presents to the emergency department with worsening shortness of breath today as well as new onset pedal
edema.
Patient was recently admitted to the hospital 1 week ago for shortness of breath and palpitations as well as uncontrolled atrial flutter. He had pending abnormal/rapid atrial flutter for about 1 month prior to coming to the emergency department.
He had tried rate control medications at home without any success. On arrival in the emergency department was placed on diltiazem without any improvement. Ultimately patient underwent successful cardioversion on morning of 924 with christian of
sinus rhythm. He was discharged on amiodarone. Patient was found to have a markedly depressed EF with global hypokinesis. He was seen in addition discharged on Lasix 40 mg twice daily as well as metoprolol lisinopril and Farxiga.
Patient reported that few days after discharge he started having rapid and irregular heart rate again. He discussed this with his technical advisor and he is planning a second cardioversion which has been scheduled for this coming Tuesday.
Tonight patient reported that he felt more palpitations and all of a sudden became quite short of breath and diaphoretic. He then noticed pedal edema which was new. He also noticed new orthopnea. He felt unsafe to stay at home so came to the
emergency department.
In the emergency department he was tachycardic to the 120s. Blood pressure was 111/83 and he was satting 97% on room air. Chest x-ray shows no new infiltrates. ECG shows atrial fibrillation with a rate of 129. Troponin was 0.026. BNP remains
elevated at 26,500. He is CBC was unremarkable. Potassium was 3.8.'s creatinine had jumped to 1.9 from a baseline of 1.2. The rest of the electrolytes were unremarkable.
Medical History
Past Medical History
Past Medical History: Reports Other
Additional Past Medical History:
atrial flutter (EVARISTO/cardioversion 01/26/2024), paroxysmal A-fib (PVI 10/2023), chronic LBBB, nonischemic cardiomyopathy (suspect transient systolic dysfunction due to atrial flutter with RVR, EF now recovered), HFpEF (grade 3 diastolic dysfunction),
LETICIA (CPAP at night), and prostate cancer (status post prostatectomy)
Past Surgical History: Reports Cardiac (EVARISTO/cardioversion 01/26/2024, PVI 10/2023) and Urological (Robotic prostatectomy)
Social History
Tobacco: Non-smoker
Alcohol: Occasional
Drug: None
Family History
Family History: Not pertinent
Allergies / Home Medications
Allergies reflects when Allergies were last updated in [facility].
Home Medications with original date entered in [facility]
Allergy/Medication List:
Allergies
Allergy/AdvReac Type Severity Reaction Status Date / Time
No Known Allergies Allergy Verified 11/26/24 08:11
Home Medications
ascorbic acid (vitamin C) 500 mg tablet (Vitamin C) 500 mg PO DAILY Supplement 05/13/22
atorvastatin 20 mg tablet 20 mg PO DAILY High cholesterol 05/13/22
cholecalciferol (vitamin D3) 25 mcg (1,000 unit) tablet (Vitamin D3) 25 mcg PO DAILY Supplement 05/13/22
therapeutic multivitamin 1 tab PO DAILY Supplement 05/13/22
vitamin B complex 1 tab PO DAILY Supplement 05/13/22
lisinopril 5 mg tablet 5 mg PO DAILY Blood Pressure 05/12/23
coenzyme Q10 100 mg capsule (CoQ-10) 100 mg PO DAILY Supplement 09/30/23
apixaban 5 mg tablet (Eliquis) 5 mg PO BID Blood Clot Prevention/Tx 01/25/24
furosemide 20 mg tablet 20 mg PO DAILY #30 tabs 01/26/24
metoprolol succinate 50 mg tablet,extended release 24 hr (Toprol XL) 50 mg PO HS 11/26/24
Review of Systems
-
History Source: Patient
Constitutional: Reports No Symptoms
EENT: Reports No Symptoms
Respiratory: Reports Trouble Breathing
Cardiac: Reports Diaphoresis and Palpitations
Abdomen/GI: Reports No Symptoms
: Reports No Symptoms
Musculoskeletal: Reports Edema
Skin: Reports No Symptoms
Neurological: Reports No Symptoms
Endocrine: Reports No Symptoms
Hematologic/Lymphatic: Reports No Symptoms
Psych: Reports No Symptoms
Physical Exam
Vital Signs
Vital Signs
Pulse Resp BP Pulse Ox
113 20 90/76 97
12/05/24 01:12 12/04/24 23:45 12/05/24 01:12 12/05/24 01:11
Physical Exam
General: Well Developed, Well Nourished and No Apparent Distress
HEENT: NormoCephalic, Moist mucous membranes and Atraumatic
Respiratory: Clear
Cardiac: S1/S2, Irregular Rhythm and Tachycardia; No Murmur or Rub
GI: Soft, Non Tender, Non Distended and Normal Bowel Sounds; No Organomegaly
Rectal: Deferred by Provider
Genito-urinary: Deferred by me
Musculoskeletal: No Clubbing, No Cyanosis, Edema, Left Lower Extremity (Trace ankle) and Edema, Right Lower Extremity (Trace ankle,)
Skin: No Rash
Neuro: AO x 3 and Nonfocal/grossly intact
Hematologic/Lymphatic: No Lymphadenopathy
Laboratory Results
-
12/04/24 23:35
12/04/24 23:35
Laboratory Results
Total Bilirubin 0.9 mg/dl (0.2-1.3) 12/04/24 23:35
AST 38 U/L (17-59) 12/04/24 23:35
ALT 40 U/L (0-50) 12/04/24 23:35
Alkaline Phosphatase 62 U/L (38-126) 12/04/24 23:35
Troponin I 0.026 ng/ml 12/04/24 23:35
Data Reviewed
-
Diagnostic Radiology: Image Personally Visualized and interpreted
Medical Tests (Nuc Med, Echo, EKG etc): Image Personally Visualized and interpreted
Lab Data: Labs Reviewed by me
Old Records: Reviewed
Impression/Plan
-
IMPRESSION:
This is a 83-year-old male with extensive past medical history notable for paroxysmal atrial fibrillation, status post ablation, atrial flutter status post cardioversion, nonischemic cardiomyopathy secondary to systolic dysfunction due to atrial
flutter and RVR which now seems to have occurred twice in the last 2 years, moderate mitral and aortic regurgitation, LETICIA on CPAP, recent admission for atrial flutter status post cardioversion and adjustment of goal-directed medical therapy who now
presents to the emergency department with shortness of breath diaphoresis orthopnea and pedal edema despite rhythm and rate control agents and is in atrial fibrillation this time. Was started on diltiazem in the ED.
PLAN:
Uncontrolled atrial fibrillation -now in atrial fibrillation unlike atrial flutter. He was been placed on diltiazem in the ED with rates in the low 100s to as high as 120.
- Admit to IVU
- Blood pressure is slightly soft on the diltiazem drip but the rate is better controlled and given this is atrial fibrillation rate and flutter restrictions of diltiazem being effective although there is relative contraindication due to the
cardiomyopathy
- Continue amiodarone 200 mg twice daily
- Continue metoprolol with hold parameters
- holding farxiga
-AC on eliquis, last dose Tuesday evening
- N.p.o.
- Cardiology consultation
CHF -suspect rate related exacerbation of his cardiomyopathy
- IV Lasix 40 mg twice daily as blood pressure tolerates
- Holding lisinopril to allow diuresis
- Holding Farxiga
-Daily weights, ins and outs
-Possible cardioversion in a.m.
LUCIANA - most likely cardiorenal with worsening CHF
- holding lisinopril
- rate control/cardioversion
- continue lasix
- avoid nephrotoxin
- i/o
LETICIA
-Supplemental oxygen for now
DVT prophylaxis�on Eliquis
CODE STATUS�full code
--- NOTE | 2024-12-05 04:33 | PTCARENOTE ---
Pt admit to room 3369 from ED via stretcher. Assisted into bed and made comfortable. Placed on monitor-afib with BBB and polymorphic PVCs. Continues on cardizem gtt at 15mg/hr. Assessment as charted.
[2024-12-05 04:50] LABS: Blood Urea Nitrogen 47 mg/dl (9-20); Calcium 8.2 mg/dl (8.4-10.2); Carbon Dioxide 25 mmol/L (22-30); Chloride 100 mmol/L (98-107); Estimated Creatinine Clearance 36 ml/min; Glucose 102 mg/dl (70-99); Magnesium 2.4 mg/dl (1.6-2.3); Potassium 3.5 mmol/L (3.5-5.1); Sodium 134 mmol/L (135-145); eGFR 43.02
[2024-12-05 05:05] LABS: Troponin I 0.042 ng/ml
--- NOTE | 2024-12-05 05:56 | PTCARENOTE ---
Troponin result communicated to thomas LEON
--- NOTE | 2024-12-05 06:38 | PTCARENOTE ---
Cardizem decreased to 10mg/hr as SBP 91 and HR 80s.
[2024-12-05] MEDS: ELIQUIS 5 MG PO ×2 (07:48→19:36)
[2024-12-05] MEDS: LIPITOR 20 MG PO (07:48)
[2024-12-05] MEDS: PACERONE 200 MG PO ×2 (07:48→11:49)
[2024-12-05] MEDS: TOPROL XL 25 MG PO ×2 (07:48→19:37)
--- NOTE | 2024-12-05 07:59 | W.PN.HOSP.TC ---
Today's Communication/Plan
-
see PN
Assessment / Plan
Assessment / Plan
83yo M with PMHX of Afib on ELiquis, HLD, HTN came with episodes of palpitation, diaphoresis and b/l ankle swelling. Was previously scheduled for CV this week and ablation in Nov. Found CHF exacerbation and afib with RVR
A/P:
#Afib with RVR
#Acute on chronic HFrEF exacerbation
#Troponin elevation, non ischemic myocardial injury 2/2 tachycardia
Troponin within limits seen on previous admissions - continue following until peak
as per echo on 11/27/24 - EF fell to 18% with dilated CM, moderate-severe MR
Lasix, daily weight, electrolytes, follow Cr
Cardizem drip and cont home rate control with Amio
Cardio consult
cont Eliquis
check TSH
#LUCIANA
Cr baseline 1.2
Improving with HR control and LAsix - cardiorenal and tachy-mediated
follow BMP
#Essential HTN
#HLD
#LETICIA on CPAP
#Hx of prostate CA s/p TURP
#R retianl tear
cont CPAP
cont home meds
DVT ppx ELiquis
Full code
I have spent at least 55min reviewing chart, test results, communication with consultants and providing direct patient care
Anticipated Discharge: > 48 hours
Subjective/Interval History
-
Date of Service: December 05, 2024
Objective Data
-
Labs:
Laboratory Results
12/04/24 12/05/24
23:35 04:09
WBC 6.6
Hgb 14.9
Hct 44.0
Plt Count 199
Sodium 132 L 134 L
Potassium 3.8 3.5
Chloride 98 100
Carbon Dioxide 22 25
BUN 50 H 47 H
Creatinine 1.9 H 1.6 H
Glucose 166 H 102 H
Calcium 8.5 8.2 L
Total Bilirubin 0.9
AST 38
ALT 40
Alkaline Phosphatase 62
Vital Signs:
Vital Signs
Temp Pulse Resp BP Pulse Ox
97.7 F 95 8 119/67 97
12/05/24 07:39 12/05/24 07:48 12/05/24 05:30 12/05/24 07:48 12/05/24 04:28
I&O
12/04/24 12/05/24 12/06/24
06:59 06:59 06:59
Intake Total 60 / 60
Output Total 100 / 100 100 / 100
Balance -40 / -40 -100 / -100
Review of Systems
-
History Source: Patient
All other systems: Reviewed and negative
Physical Exam
-
General: No Apparent Distress
HEENT: Normocephalic
Respiratory: Crackles (bibasilar)
Cardiac: Irregular Rhythm
Musculoskeletal: Edema, Right Lower Extrem and Edema, Left Lower Extrem
Neuro: Awake, Alert, Oriented and AO x 3
Psych: Calm
--- NOTE | 2024-12-05 08:00 | PTCARENOTE ---
Received patient from night nurse. patient is AAOx4, on room air and afib on monitor. cardizem gtt at 10. Patient is NPO pending possible intervention. is using urinal appropriately. denies pain. assessment as charted. orders reviewed.
--- NOTE | 2024-12-05 08:49 | CON.CAR ---
Addendum entered and electronically signed by Gordon Lindquist MD 12/05/24 10:06:
I saw and examined the patient.
The Width Stripper's note was reviewed and I agree with the note.
Comment:
GEN: No distress, awake, Ox3
HEENT: supple, anicteric, mmm
LUNGS: bilat rhonchi
CV: Reg, S1/S2, 2/6 syst LSB, S3+
ABD: soft, BS+, NT/ND
EXT:+1 edema
NEURO: Gross non-focal
SKIN: No rash
Plan:
83-year-old male with hospital history of paroxysmal atrial fibrillation/flutter, cardiomyopathy, chronic heart failure with reduced ejection fraction who, and mitral regurgitation presents with acute heart failure with reduced ejection fraction.
The patient has a history of atrial arrhythmias requiring PVI in October 2023 then developed atrial flutter. He was admitted 2 weeks ago with recurrent atrial arrhythmia send initiated on amiodarone. At that point ejection fraction dropped to 18%.
He was cardioverted prior to discharge and discharged on amiodarone. He states 2 days after this he had further episodes of atrial arrhythmias and has progressed with more shortness of breath, orthopnea, fatigue, and dyspnea on exertion. He
presented back to the emergency room with more rapid atrial rates in atrial flutter/atrial tachycardia. He states he was previously scheduled for an ablation in January.
Acute heart failure with reduced ejection fraction in the setting of recurrent rapid atrial fibrillation.
Will proceed with IV diuresis Lasix 40 mg IV twice daily.
Will continue amiodarone 200 mg p.o. twice daily, Toprol 25 mg p.o. twice daily and IV diltiazem. Will discuss plan with electrophysiology to possibly move up ablation.
Continue Eliquis.
I will review his echocardiogram regarding his mitral regurgitation.
If he does have moderate to severe mitral regurgitation at some point we will be reasonable to pursue right and left heart catheterization with EVARISTO to better evaluate this.
Ideally we restore sinus rhythm and reassess his LVEF and mitral valve.
Original Note:
Consultation
Consultation Request
Date/Time Consultation Performed: 12/05/24
Requesting Provider: Dr. Pickett
Performing Provider: Aliya Irene PA-C for Dr. Lindquist
Reason for Consultation: atach, CHF
Medical History
-
Chief Complaint: tachycardia, leg swelling
History of Present Illness:
Patient is an 83 yo M with history of paroxysmal A-fib status post PVI 10/2023 then developed paroxysmal atrial flutter. In the setting of this his EF initially was as low as 35%, with subsequent recovery with mandaen of sinus rhythm. He has a
chronic left bundle branch block and a history of sinus bradycardia. He initially went into atrial tachycardia about 6 weeks ago. His Toprol dose was uptitrated however remained in arrhythmia despite this. He was then admitted 11/26 - 11/29 and
started on amiodarone therapy. During that admission he had echocardiogram which showed EF of 18%, felt to be tachycardia mediated given his history. He was cardioverted prior to discharge and sent out on 200 mg twice daily Amio. He reports
within 48 hours his atrial arrhythmia recurred, and he has had tachycardia and palpitations since that time. He is attempting to deal with it, however states his activity is significantly limited due to this and he is much more fatigued. He then
states last evening he noticed for the first time that his lower extremities bilaterally were swelling which caused him to come in for evaluation. He is being treated for acute CHF and was started on IV Cardizem gtt. in addition to p.o. Amio for
atrial tachycardia.
PMH:
Admission to [facility] 11/26-11/29/24 for atach with RVR, CHF, CM s/p CV 11/28/24
Paroxysmal atrial flutter s/p successful EVARISTO/CV 01/26/24
Paroxysmal atrial fibrillation s/p PVI 10/2023
Chronic Eliquis OAC
Chronic HFpEF
Improved CM, EF as low as 35% by EVARISTO 01/26/2024 and improved to 50% by echo 10/08/2024
Moderate MR by echo 10/08/2024
Mild to moderate aortic regurgitation
Chronic LBBB
h/o sinus bradycardia
History of vasovagal syncope
HTN
HLD
LETICIA on CPAP
prostate cancer s/p prostatectomy
Retinal tear of R eye
Past Medical History
Past Medical History: Other (in HPI)
Past Surgical History: Cardiac (PVI 10/2023)
Social History
Tobacco: Non-Smoker
Alcohol: Daily (1-2 glasses of wine)
Personal:
Living: With Family
Employment: Retired
Family History
Family History: CAD (with SC in father at 60)
Allergies / Home Medications
Allergy/AdvReac Type Severity Reaction Status Date / Time
No Known Allergies Allergy Verified 11/26/24 14:00
�Medication �Instructions �Recorded �Confirmed �Type
atorvastatin 20 mg tablet 20 mg PO DAILY High cholesterol 05/13/22 12/05/24 History
therapeutic multivitamin 1 tab PO DAILY Supplement 05/13/22 12/05/24 History
lisinopril 5 mg tablet 5 mg PO DAILY Blood Pressure 05/12/23 12/05/24 History
apixaban 5 mg tablet (Eliquis) 5 mg PO BID Blood Clot 01/25/24 12/05/24 History
Prevention/Tx
metoprolol succinate 50 mg 25 mg PO BID Blood Pressure 11/26/24 12/05/24 History
tablet,extended release 24 hr
(Toprol XL)
dapagliflozin propanediol 10 mg 10 mg PO DAILY #30 tabs 11/28/24 12/05/24 Rx
tablet (Farxiga)
amiodarone 200 mg tablet (Pacerone) 200 mg PO BID 30 days #60 tabs 11/29/24 12/05/24 Rx
furosemide 40 mg tablet 40 mg PO BID@0800,1600 30 days #60 11/29/24 12/05/24 Rx
tabs
Review of Systems
-
History Source: Patient
All other systems: Negative unless noted
Physical Exam
Vital Signs
Temp Pulse Resp BP Pulse Ox
97.7 F 95 8 119/67 97
12/05/24 07:39 12/05/24 07:48 12/05/24 05:30 12/05/24 07:48 12/05/24 04:28
Lab Results
12/04/24 23:35
12/05/24 04:09
Troponin I 0.042 ng/ml H* D 12/05/24 04:09
Cpm-H-Zwuotoxtnkr Pept 46591 pg/ml 12/04/24 23:35
Physical Exam
General: No Apparent Distress and Comfortable
HEENT: Normocephalic, Anicteric and Moist Mucous Membranes
Respiratory: Crackles and Non Labored Respirations
Cardiac: S1/S2, Irregular Rhythm and Murmur
GI: Soft, Non Tender, Non Distended and Normal Bowel Sounds
Musculoskeletal: No Clubbing, No Cyanosis and Edema
Skin: Warm and Dry
Neuro: AO x 3
Impression / Plan
-
PCP: Dr. Gaxiola
Primary Experimental Mechanic Spacecraft: Dr. Burks, last seen 2016
Impression:
Acute on chronic HFrEF
Paroxysmal atrial tachycardia vs atypical aflutter with RVR
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
Admission to [facility] 11/26-11/29/24 for atach with RVR, CHF, CM s/p CV 11/28/24
Paroxysmal atrial flutter s/p successful EVARISTO/CV 01/26/24
Paroxysmal atrial fibrillation s/p PVI 10/2023
Chronic Eliquis OAC
Chronic HFpEF
Improved CM, EF as low as 35% by EVARISTO 01/26/2024 and improved to 50% by echo 10/08/2024
Moderate MR by echo 10/08/2024
Mild to moderate aortic regurgitation
Chronic LBBB
h/o sinus bradycardia
History of vasovagal syncope
HTN
HLD
LETICIA on CPAP
prostate cancer s/p prostatectomy
Retinal tear of R eye
Lexiscan nuclear stress test 06/07/2022: Fixed defect in basal inferolateral, basal inferior, basal inferoseptal, mid inferior and apical inferior segments consistent with infarction with superimposed soft tissue attenuation, fixed defect in mid
anteroseptal defect consistent with infarction, EF 45%
Echo 08/2022: EF 55%, abnormal paradoxical septal motion consistent with left bundle branch block, mild concentric LVH, severely dilated LA, moderate MR, mild to moderate AR, mild TR, PAP 43 mmHg, trivial pericardial effusion
EVARISTO 01/26/2024: Global hypokinesis with regional variation, abnormal septal motion consistent with left bundle branch block, EF 35%, no thrombus detected in MENDEZ, moderate central MR, mild to moderate eccentric AR
Echo 10/08/2024: EF 50%, moderate MR, mild to moderate aortic regurgitation
Echo 11/27/2024: EF 18%, bilateral atrial dilatation, mild to moderate AI, moderate to severe MR with very eccentric jet directed toward free wall, mild TR, PAP 46 mmHg
Plan:
- This is now patient's second admission in the last 10 days for recurrent atrial tachycardia with RVR. he is frustrated and feels poorly
- He is not tolerating this rhythm well as evidenced by acute heart failure and cardiomyopathy with EF down to 18%, felt to be tachycardia mediated as he also has history of this in the past with subsequent recovery with mandaen of sinus
- This is despite being started on amiodarone 11/26/2024.
- Currently rate controlled and A. tach on IV Cardizem
- Continue Eliquis
- proBNP significantly elevated at 26,000. CXR pending. Continue IV diuresis. Was discharged last admission on p.o. Lasix 40 mg twice daily
- Will discuss options with EP, however would consider for inpatient ablation if schedule allows
- Continue Toprol, lisinopril, Farxiga for cardiomyopathy
- will need continued follow up of MR, mod to severe by echo 11/27/24
Data Reviewed
-
EKG: Tracing Personally Visualized and interpreted
Medical Tests (Nuc Med, Echo etc): Report Reviewed by me
Labs: Labs Reviewed by me
Old Records: Reviewed
--- NOTE | 2024-12-05 10:00 | PTCARENOTE ---
Dr. Castaneda saw patient. patient ok to have diet.
[2024-12-05 10:53] LABS: Troponin I 0.042 ng/ml
--- NOTE | 2024-12-05 12:29 | CM ---
Recent admission 11/26/24 to 11/29/24 for A-Fib. Initial assessment completed with patient. Previous admission IA information confirmed for accuracy. Patient lives with his in a 3 story home with no basement, B/B on and 1/2 bath on , 1
step to enter. CPS TEAM LEAD patient was independent in ADL's and ambulation, drives. Patient has a CPAP and does use at HS. No other DME. Pays jeong for medications. Purchases [employer] ([employer]) from [employer]. No in-home services. No HC-POA. No VA benefits. No
psychiatric hospitalizations. PCP is Dr. Raul Gaxiola. Pharmacy is [facility] in [place]. Discharge POC: Anticipate home with no needs.
[2024-12-05] MEDS: PACERONE 400 MG PO ×2 (16:04→22:15)
--- NOTE | 2024-12-05 17:01 | W.PN.UPDATE ---
Update Note
Progress Note Update
Briefly, patient is a pleasant 83-year-old male with a past medical history significant for left bundle branch block, hypertension, hyperlipidemia, sleep apnea on CPAP, heart failure with preserved reduced ejection fraction, chronic anticoagulation
with Eliquis, moderate MR with prior atrial fibrillation with PVI October 2023 using pulsed field ablation (pulse select), subsequently developed recurrence of atrial fibrillation, atrial flutter, and possible atrial tachycardia. Patient was
initially admitted November 26 through for initiation of amiodarone therapy was noted to have reduction in his EF once more likely tachycardia induced. He underwent cardioversion and placed on oral amiodarone. Patient returns and acute on
chronic heart failure back in rapid atrial fibrillation. In discussion with patient, he reports feeling palpitations, shortness of breath and significant symptoms associated with atrial fibrillation. Given patient's tachycardia induced
cardiomyopathy and recurrence of atrial fibrillation and recurrent admission for heart failure, I recommend strongly patient undergo repeat catheter-based ablation. With this in mind, we discussed options for management of atrial fibrillation and
atrial flutter. Regarding atrial arrhythmias, we discussed thromboembolic prophylaxis as well as rate and rhythm control strategies in detail. Rate control options include AV jose medication, and pacemaker/AVJ ablation. We specifically discussed
rhythm control in detail including class 1 and class 3 anti-arrhythmic drug therapy as well as pulmonary vein isolation (AF ablation or PVI). Anti-arrhythmic drug therapy typically results in AF control in approximately 40-50% of patients with
paroxysmal AF and less efficacious in persistent AF patients. We discussed pulsed field, radio frequency, and cryoballoon ablation approaches and advantages/disadvantages of each. For PVI there is an approximate 80-85% chance of success in
elimination of paroxysmal AF with an approximate 60-70% one procedure success rate in persistent AF patients. We also discussed that procedural success correlates with time in AF from first diagnosis and that delayed consideration of procedure may
adversely affect success rate of procedure. Risks of procedure including a 1:1000 risk of OR/stroke/ and a 2-3% risk of cardiac or vascular injury including tamponade, vascular injury, or phrenic nerve injury. Post procedure healing includes
chest pain, cough, and pain/bruising at access sites for approximately one week afterward and post procedure restrictions were discussed. Additionally, we discussed healing phase expectation and the possibility of early healing phase arrhythmias. I
recommend EVARISTO on day of procedure to rule out left atrial appendage thrombus prior to ablation. With this in mind, I would recommend patient undergo electrophysiology study with pulsed field ablation using the Affera/Sphere-9 system. Plan to
reinterrogate the pulmonary veins as well as perform ablation and other areas of atrial fibrillation triggers. We also plan to map and ablate atrial flutter as well as atrial tachycardia induced. Recommend patient hold his Farxiga so as not to
delay anesthesia. I took time to answer all questions with patient, consent obtained and placed in patient chart. For now, continue amiodarone therapy with planned cardioversion and diuresis. If patient stable out of atrial fibrillation and
euvolemic, patient can tentatively be discharged and return for ablation as outpatient on 12/12/2024 as scheduled however, if patient difficult to control arrhythmia plus heart failure, would maintain in hospital for planned ablation as inpatient.
[2024-12-05 17:08] LABS: Troponin I 0.039 ng/ml
--- NOTE | 2024-12-05 17:45 | PTCARENOTE ---
patient will transfer to IVU. per Dr. Mchugh's note, recomments holding farxiga for cardioversion. notified Dr. Alonzo. Medication was held this AM. report to be given to Bev.
--- NOTE | 2024-12-05 18:00 | PTCARENOTE ---
transferred patient to [facility]
--- NOTE | 2024-12-05 18:08 | PTCARENOTE ---
received pt from ICU. AOx3, no complaints of pain or discomfort. Afib on tele monitor. Cardizem gtt infusing per orders. Call gregorio within reach.
[2024-12-06] VITALS (12 sets, daily range): BP systolic 74–115; BP diastolic 58–83; BMI 21.4
--- NOTE | 2024-12-06 01:23 | PTCARENOTE ---
Pt. continues in A-fib, rate 80's-90's at rest, up to 120's with ambulation. Cardizem gtt infusing at 10 mg/hr. No complaints of chest discomfort / palpitations. Pt. resting quietly.
[2024-12-06] MEDS: CARDIZEM 125 IV (02:10)
[2024-12-06 02:49] LABS: Blood Urea Nitrogen 50 mg/dl (9-20); Calcium 8.4 mg/dl (8.4-10.2); Carbon Dioxide 25 mmol/L (22-30); Chloride 102 mmol/L (98-107); Estimated Creatinine Clearance 36 ml/min; Glucose 112 mg/dl (70-99); Magnesium 2.4 mg/dl (1.6-2.3); Potassium 3.3 mmol/L (3.5-5.1); Sodium 134 mmol/L (135-145); eGFR 43.02
[2024-12-06] MEDS: KCL 40 MEQ PO ×2 (04:38→10:45)
[2024-12-06] MEDS: ELIQUIS 5 MG PO ×2 (08:30→19:43)
[2024-12-06] MEDS: LASIX 40 MG IV ×2 (08:30→16:40)
[2024-12-06] MEDS: PACERONE 400 MG PO ×3 (08:30→21:58)
[2024-12-06] MEDS: TOPROL XL 25 MG PO ×2 (08:30→19:44)
[2024-12-06] MEDS: LIPITOR 20 MG PO (08:34)
--- NOTE | 2024-12-06 11:07 | W.PN.HOSP.TC ---
Today's Communication/Plan
-
cont cardizem drip as unable to wean off
pending CV by card
Assessment / Plan
Assessment / Plan
83yo M with PMHX of Afib on ELiquis, HLD, HTN came with episodes of palpitation, diaphoresis and b/l ankle swelling. Was previously scheduled for CV this week and ablation in Nov. Found CHF exacerbation and afib with RVR. Planned for CV on 12/07/24
A/P:
#Afib with RVR
#Acute on chronic HFrEF exacerbation
#Troponin elevation, non ischemic myocardial injury 2/2 tachycardia
Troponin within limits seen on previous admissions - peaked at 0.042
as per echo on 11/27/24 - EF fell to 18% with dilated CM, moderate-severe MR
Lasix, daily weight, electrolytes, follow Cr
Cardizem drip and cont home rate control with Amio
Cardio consult: plan for CV
EP consult: if after CV will not sustain in SR - plan for ablation on 12/12/24
cont Eliquis
#Subclinical hyperthyroidism
minimal increase of TSH and FT4 overt ULN - will recheck in 1-2 weeks, no indication for medications
#LUCIANA
#Hypokalemia
replete and follow electrolytes
Cr baseline 1.2
Improving with HR control and Lasix - cardiorenal and tachy-mediated
follow BMP
#Essential HTN
#HLD
#LETICIA on CPAP
#Hx of prostate CA s/p TURP
#R retianl tear
cont CPAP
cont home meds
DVT ppx ELiquis
Full code
I have spent at least 51min reviewing chart, test results, communication with consultants and providing direct patient care
Anticipated Discharge: > 48 hours
Subjective/Interval History
-
Date of Service: December 06, 2024
Objective Data
-
Labs:
Laboratory Results
12/06/24
02:19
Sodium 134 L
Potassium 3.3 L
Chloride 102
Carbon Dioxide 25
BUN 50 H
Creatinine 1.6 H
Glucose 112 H
Calcium 8.4
Vital Signs:
Vital Signs
Temp Pulse Resp BP Pulse Ox
97.4 F 89 20 103/73 97
12/06/24 08:12 12/06/24 09:07 12/06/24 08:12 12/06/24 09:07 12/06/24 08:12
I&O
12/05/24 12/06/24 12/07/24
06:59 06:59 06:59
Intake Total 60 / 60 1380 / 1380
Output Total 100 / 100 700 / 700
Balance -40 / -40 680 / 680
Review of Systems
-
History Source: Patient
All other systems: Reviewed and negative
Physical Exam
-
General: No Apparent Distress
Respiratory: Clear to Auscultation
Cardiac: Irregular Rhythm
Musculoskeletal: No Edema
Neuro: Awake, Alert and Oriented
Psych: Calm
--- NOTE | 2024-12-06 12:18 | CM ---
Reviewed chart. Mr. Lozada was transferred to IVU. Met with Mr. Lozada to review discharge plans. He states prior to admission he resides with his spouse in a three story home with four steps to enter. He states he has a full flight of steps to get to
bedroom/full bathroom. He states he has a powder room on the first floor. He states prior to admission he was independent with ambulation and adls. He states he has a CPAP Machine at home. He states he does not have a prescription plan and uses a
[employer] discount card. [facility] cost [facility] medication without as script. He states he has never had VNA Services. Will need to see his current functional level to see if he will have any skilled care needs. Medical work-up
in progress. The discharge plan is to return home with his spouse when medically stable.
--- NOTE | 2024-12-06 12:49 | W.PN.CARDCBS ---
Addendum entered and electronically signed by Gordon Lindquist MD 12/06/24 18:42:
I saw and examined the patient.
The Bull Wheel Worker's note was reviewed and I agree with the note.
Comment:
GEN: No distress, awake, Ox3
HEENT: supple, anicteric, mmm
LUNGS: rhonchi
CV: Irreg, S1/S2, 1/6 syst LSB, no murmur
ABD: soft, BS+, NT/ND
EXT: No edema
NEURO: Gross non-focal
SKIN: No rash
Plan:
Ventricular rate still not optimal and remains volume overloaded. Continue amiodarone reload 400 mg p.o. 3 times daily with IV diltiazem and Toprol XL. With low ejection fraction would like to get off IV Cardizem and further titrate metoprolol.
Continue Eliquis and plan for cardioversion in AM. Ultimate plan is for ablation 12/12.
Will give dose of metolazone today with Lasix to try to unload ventricle further. Creatinine overall stable at 1.6. Hold off on MINE/ARB for now.
Hopefully resume Farxiga over next 24 to 48 hours.
Of note he does have moderate to severe mitral regurgitation. I suspect that his cardiomyopathy is mainly related to his tachyarrhythmia but he likely will need an ischemic evaluation as well at some point.
Ideally we restore sinus rhythm to reassess his LVEF and mitral valve. If they continue to remain abnormal at that point I would strongly consider right and left heart catheterization as well.
Low threshold to transfer to higher level of care if not improving.
Original Note:
Today's Communication / Plan
-
metolazone with IV lasix this afternoon
plan for CV in AM
likely inpatient ablation 12/12
low threshold to transition to higher level of care
Impression / Plan
-
PCP: Dr. Gaxiola
Primary Etl Bi Developer: Dr. Burks, last seen 2016
Impression:
Acute on chronic HFrEF
Paroxysmal atrial tachycardia vs atypical aflutter with RVR
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
Admission to [facility] 11/26-11/29/24 for atach with RVR, CHF, CM s/p CV 11/28/24
Paroxysmal atrial flutter s/p successful EVARISTO/CV 01/26/24
Paroxysmal atrial fibrillation s/p PVI 10/2023
Chronic Eliquis OAC
Chronic HFpEF
Improved CM, EF as low as 35% by EVARISTO 01/26/2024 and improved to 50% by echo 10/08/2024
Moderate MR by echo 10/08/2024
Mild to moderate aortic regurgitation
Chronic LBBB
h/o sinus bradycardia
History of vasovagal syncope
HTN
HLD
LETICIA on CPAP
prostate cancer s/p prostatectomy
Retinal tear of R eye
Lexiscan nuclear stress test 06/07/2022: Fixed defect in basal inferolateral, basal inferior, basal inferoseptal, mid inferior and apical inferior segments consistent with infarction with superimposed soft tissue attenuation, fixed defect in mid
anteroseptal defect consistent with infarction, EF 45%
Echo 08/2022: EF 55%, abnormal paradoxical septal motion consistent with left bundle branch block, mild concentric LVH, severely dilated LA, moderate MR, mild to moderate AR, mild TR, PAP 43 mmHg, trivial pericardial effusion
EVARISTO 01/26/2024: Global hypokinesis with regional variation, abnormal septal motion consistent with left bundle branch block, EF 35%, no thrombus detected in MENDEZ, moderate central MR, mild to moderate eccentric AR
Echo 10/08/2024: EF 50%, moderate MR, mild to moderate aortic regurgitation
Echo 11/27/2024: EF 18%, bilateral atrial dilatation, mild to moderate AI, moderate to severe MR with very eccentric jet directed toward free wall, mild TR, PAP 46 mmHg
Plan:
- This is now patient's second admission in the last 10 days for recurrent atrial tachycardia with RVR.
- Continues to feel and look poorly. With some labored breathing on exam today
- Remains in atrial tachycardia with improved rates on IV Cardizem gtt at 10, amiodarone 400 mg 3 times daily, Toprol 25 mg twice daily
- Plan for cardioversion in a.m.
- Will attempt to improve breathing in preparation for procedure tomorrow. Continue IV Lasix 40 mg twice daily and will add metolazone 2.5 mg to afternoon Lasix dose. follow K and will give 10 mEq KCl with metolazone dose
- Creatinine 1.6, continue to follow with diuresis
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 He has had tachycardia mediated cardiomyopathy in the past with subsequent recovery with shinto of sinus rhythm. last ischemic eval
was stress test in 2022
- Continue Eliquis
- After discussion with EP 12/05, plan for ablation 12/12/2024 either as inpatient or outpatient. I suspect patient will need to stay hospitalized until ablation
- Outpatient lisinopril and Farxiga are presently on hold
- will need continued follow up of MR, mod to severe by echo 11/27/24
- would have low threshold to transition to higher level of care if any evidence of further clinical decompensation
Progress Note - Etl Bi Developer
Subjective
Date of Service: December 06, 2024
denies SOB, but breathing appears labored. no CP
Objective
Labs:
12/04/24 23:35
12/06/24 02:19
Labs
Hgb 14.9 g/dL (13.0-18.0) 12/04/24 23:35
Hct 44.0 % (39.0-52.0) 12/04/24 23:35
Plt Count 199 10^3/uL (130-400) 12/04/24 23:35
APTT Cancelled 12/05/24 16:00
Sodium 134 mmol/L (135-145) L 12/06/24 02:19
Potassium 3.3 mmol/L (3.5-5.1) L 12/06/24 02:19
BUN 50 mg/dl (9-20) H 12/06/24 02:19
Creatinine 1.6 mg/dL (0.7-1.3) H 12/06/24 02:19
Glucose 112 mg/dl (70-99) H 12/06/24 02:19
Troponins
12/04/24 12/05/24 12/05/24
23:35 04:09 10:06
Troponin I 0.026 0.042 H* D 0.042 H*
12/05/24
16:18
Troponin I 0.039 H*
Vital Signs and I&O:
Vital Signs
Temp Pulse Resp BP Pulse Ox
97.1 F 89 20 103/73 95
12/06/24 12:15 12/06/24 09:07 12/06/24 12:15 12/06/24 09:07 12/06/24 12:15
Vital Signs
Temp Pulse Resp BP Pulse Ox
97.1 F 89 20 103/73 95
12/06/24 12:15 12/06/24 09:07 12/06/24 12:15 12/06/24 09:07 12/06/24 12:15
Intake & Output
12/04/24 12/05/24 12/06/24 12/07/24
07:59 07:59 07:59 07:59
Intake Total 60 / 60 1380 / 1380
Output Total 200 / 200 600 / 600
Balance -140 / -140 780 / 780
Physical Exam
Physical Exam
GEN: Breathing labored, awake, alert, oriented x3. Sitting in chair
HEENT: supple, anicteric, mmm, EOMI
LUNGS: Crackles B/L bases, no wheezes/rales
CV: Irreg, S1/S2, no murmur
ABD: soft, BS+, NT/ND
EXT: No cyanosis, clubbing, edema
NEURO: Gross non-focal
SKIN: Warm, pink, dry. No rash
[2024-12-06] MEDS: ZAROXOLYN 2.5 MG PO (15:35)
[2024-12-06] MEDS: KCL 10 MEQ PO (15:36)
--- NOTE | 2024-12-06 23:40 | PTCARENOTE ---
Received pt @ change of shift. AAOx3, VSS-- A-fib w/ PVCs on monitor. Cardizem gtt running @ 10 mL/hr through left arm. Discussed plan of care. Pt verbalizes understanding, including being NPO @ midnight for CV in morning. Call gregorio within reach.
[2024-12-07] VITALS (10 sets, daily range): BP systolic 95–119; BP diastolic 51–90; BMI 21.3
[2024-12-07] MEDS: CARDIZEM 125 IV (01:59)
--- NOTE | 2024-12-07 02:57 | PTCARENOTE ---
@ 1924 pt had an asymptomatic 10 beat run of Trivie. He denied any chest pain, pressure, or fluttering.
[2024-12-07 05:37] LABS: Blood Urea Nitrogen 51 mg/dl (9-20); Calcium 8.7 mg/dl (8.4-10.2); Carbon Dioxide 23 mmol/L (22-30); Chloride 102 mmol/L (98-107); Estimated Creatinine Clearance 33 ml/min; Glucose 94 mg/dl (70-99); Magnesium 2.4 mg/dl (1.6-2.3); Potassium 3.5 mmol/L (3.5-5.1); Sodium 133 mmol/L (135-145); eGFR 40.00
--- NOTE | 2024-12-07 08:57 | W.PN.HOSP.TC ---
Today's Communication/Plan
-
for CV
labs in AM
potassium in view of diuresis
Assessment / Plan
Assessment / Plan
83yo M with PMHX of Afib on ELiquis, HLD, HTN came with episodes of palpitation, diaphoresis and b/l ankle swelling. Was previously scheduled for CV this week and ablation in Nov. Found CHF exacerbation and afib with RVR. Planned for CV on 12/07/24.
Low threshold for transfer to tertiary center if deteriorates in view of significantly reduced EF
A/P:
#Afib with RVR
#Acute on chronic HFrEF exacerbation
#Troponin elevation, non ischemic myocardial injury 2/2 tachycardia
Troponin within limits seen on previous admissions - peaked at 0.042
as per echo on 11/27/24 - EF fell to 18% with dilated CM, moderate-severe MR
Lasix, daily weight, electrolytes, follow Cr
Cardizem drip and cont home rate control with Amio
Cardio consult: plan for CV
EP consult: if after CV will not sustain in SR - plan for ablation on 12/12/24
cont Eliquis
#Subclinical hyperthyroidism
minimal increase of TSH and FT4 overt ULN - will recheck in 1-2 weeks, no indication for medications
#LUCIANA
#Hypokalemia
replete and follow electrolytes
Cr baseline 1.2
Improving with HR control and Lasix - cardiorenal and tachy-mediated
follow BMP
#Essential HTN
#HLD
#LETICIA on CPAP
#Hx of prostate CA s/p TURP
#R retianl tear
cont CPAP
cont home meds
DVT ppx ELiquis
Full code
I have spent at least 36min reviewing chart, test results, communication with consultants and providing direct patient care
Anticipated Discharge: > 48 hours
Subjective/Interval History
-
Date of Service: December 07, 2024
Objective Data
-
Labs:
Laboratory Results
12/07/24
04:52
Sodium 133 L
Potassium 3.5
Chloride 102
Carbon Dioxide 23
BUN 51 H
Creatinine 1.7 H
Glucose 94
Calcium 8.7
Vital Signs:
Vital Signs
Temp Pulse Resp BP Pulse Ox
98.4 F 76 18 110/57 93
12/07/24 08:09 12/07/24 08:09 12/07/24 08:09 12/07/24 08:09 12/07/24 08:09
I&O
12/06/24 12/07/24 12/08/24
06:59 06:59 06:59
Intake Total 1380 / 1380 240 / 240
Output Total 700 / 700 1100 / 1100
Balance 680 / 680 -860 / -860
Review of Systems
-
History Source: Patient
All other systems: Reviewed and negative
Physical Exam
-
General: No Apparent Distress and Comfortable
HEENT: Normocephalic
Respiratory: Clear to Auscultation
Cardiac: Irregular Rhythm
GI: Soft, Nontender and Nondistended
Musculoskeletal: No Clubbing, No Cyanosis and No Edema
Neuro: Awake, Alert, Oriented and AO x 3
Psych: Calm
[2024-12-07] MEDS: ELIQUIS 5 MG PO ×2 (09:00→21:03)
[2024-12-07] MEDS: TOPROL XL 25 MG PO ×2 (09:00→21:03)
[2024-12-07] MEDS: PACERONE 400 MG PO ×3 (09:00→21:03)
--- NOTE | 2024-12-07 10:43 | PTCARENOTE ---
Patient NPO x meds, awaiting CV, refuses IV lasix and potassium, which he needs to use apple sauce for, until after his procedure.
--- NOTE | 2024-12-07 12:38 | PN.CDI ---
Addendum entered and electronically signed by Bill Alonzo MD 12/07/24 13:57:
this is not significant finding to be commented in plan as no mgmt needed
Original Note:
CDI
- -
CDI:
Physician Documentation Request
Admit Date: 12/05/24 02:26
Dear Doctor Cheri,
Clinical Indicators:
Patient admitted with acute on chronic HFrEF.
12/05, 12/06 Lasix 40 mg IV bid.
Sodium trend:
12/04/24 12/07/24
23:35 04:52
Sodium 132 L 133 L
Based on the above, could you clarify in the progress notes, the appropriate diagnosis, if significant, that supports the above abnormalities and additional evaluation, monitoring and/or treatment rendered:
Hyponatremia
Abnormal lab values, clinically insignificant
Other, please specify
\\
Use of terms such as suspected, likely, concern for, or probable (associated with a specific diagnosis that is being evaluated, monitored, or treated as if it exists) are acceptable and can be coded in the inpatient setting, when documented at the
time of discharge.
Thank you,
BRITTANY Pederson RN
CDI Specialist
available via tiger text
Please use your independent medical judgment in providing your response.
--- NOTE | 2024-12-07 13:18 | ITS.CL.CARDI ---
[facility] - Cardioversion
Cardioversion
Procedure Report:
Procedure: Direct current electrical cardioversion
Pre-operative diagnosis: Persistent atrial fibrillation
Post-operative diagnosis: Persistent atrial fibrillation status post DC cardioversion to sinus rhythm
Anesthesia: MAC
Attending Physician: René Moise MD
Procedure Description: The patient was brought to the electrophysiology laboratory in the fasting state. Adherence to anticoagulation regimen was confirmed. Informed consent was obtained from the patient prior to the start of the procedure.
Electrodes were placed on the patient and connected to an external defibrillator. Monitoring of blood pressure, ECG tracings, and pulse oximetry was initiated. The pads were applied to the patient in the anterior and posterior positions. The patient
was sedated by the anesthesiologist. A 200 joule biphasic synchronized shock was delivered to the patient under MAC anesthesia. Sinus rhythm with competing junctional rhythm was seen on telemtry monitoring. The patient recovered uneventfully from
MAC anesthesia. There were no immediate post-procedure complications. The patient left the lab in good condition. The attending physician was present throughout the entire procedure.
--- NOTE | 2024-12-07 13:36 | PTCARENOTE ---
Patient returned post CV, HR in the 60's with no discernable P waves; junctional rhythm. Monitoring VS, ordering lunch.
--- NOTE | 2024-12-07 14:31 | CM ---
Reviewed chart. Met with Mr. Lozada to review discharge plans. He states he has his cardioversion today but may need another procedure next week.
Prior to admission he resides with his spouse in a three story home with four steps to enter. He has a full flight of steps to get to bedroom/full bathroom. He has a powder room on the first floor. Prior to admission he was independent with
ambulation and adls. He has a CPAP Machine at home. He does not have a prescription plan and uses a [employer] discount card. He has never had VNA Services. Will need to see his current functional level to see if he will have any skilled care
needs. Medical work-up in progress. The discharge plan is to return home with his spouse when medically stable.
[2024-12-07] MEDS: LIPITOR 20 MG PO (14:48)
--- NOTE | 2024-12-07 14:48 | W.PN.CARDCBS ---
Today's Communication / Plan
-
Successful DCCV
Continue IV lasix
Impression / Plan
-
PCP: Dr. Gaxiola
Primary Surface Mount Technology Operator: Dr. Burks, last seen 2016
Impression:
Acute on chronic HFrEF
Paroxysmal atrial tachycardia vs atypical aflutter with RVR
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
Admission to [facility] 11/26-11/29/24 for atach with RVR, CHF, CM s/p CV 11/28/24
Paroxysmal atrial flutter s/p successful EVARISTO/CV 01/26/24
Paroxysmal atrial fibrillation s/p PVI 10/2023
Chronic Eliquis OAC
Chronic HFpEF
Improved CM, EF as low as 35% by EVARISTO 01/26/2024 and improved to 50% by echo 10/08/2024
Moderate MR by echo 10/08/2024
Mild to moderate aortic regurgitation
Chronic LBBB
h/o sinus bradycardia
History of vasovagal syncope
HTN
HLD
LETICIA on CPAP
prostate cancer s/p prostatectomy
Retinal tear of R eye
Lexiscan nuclear stress test 06/07/2022: Fixed defect in basal inferolateral, basal inferior, basal inferoseptal, mid inferior and apical inferior segments consistent with infarction with superimposed soft tissue attenuation, fixed defect in mid
anteroseptal defect consistent with infarction, EF 45%
Echo 08/2022: EF 55%, abnormal paradoxical septal motion consistent with left bundle branch block, mild concentric LVH, severely dilated LA, moderate MR, mild to moderate AR, mild TR, PAP 43 mmHg, trivial pericardial effusion
EVARISTO 01/26/2024: Global hypokinesis with regional variation, abnormal septal motion consistent with left bundle branch block, EF 35%, no thrombus detected in MENDEZ, moderate central MR, mild to moderate eccentric AR
Echo 10/08/2024: EF 50%, moderate MR, mild to moderate aortic regurgitation
Echo 11/27/2024: EF 18%, bilateral atrial dilatation, mild to moderate AI, moderate to severe MR with very eccentric jet directed toward free wall, mild TR, PAP 46 mmHg
Plan:
- This is now patient's second admission in the last 10 days for recurrent atrial tachycardia with RVR.
- DCCV performed 12/07 and now back in sinus [id number]
- Continue metoprolol and amiodarone
- Continue Eliquis
- Plan for ablation 12/12/2024 either as inpatient or outpatient
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 He has had tachycardia mediated cardiomyopathy in the past with subsequent recovery with anglican of sinus rhythm. last ischemic eval was
stress test in 2022
- Continue IV Lasix 40 mg twice daily given elevated proBNP and CXR c/w pulm edema
- Cr remains elevated and weight is down
- With LUCIANA on CKD outpatient lisinopril and Farxiga are presently on hold
- Will need continued follow up of MR, mod to severe by echo 11/27/24
Progress Note - Surface Mount Technology Operator
Subjective
Date of Service: December 07, 2024
Underwent DCCV earlier today. Back in sinus rhythm.
Objective
Labs:
12/04/24 23:35
12/07/24 04:52
Labs
Hgb 14.9 g/dL (13.0-18.0) 12/04/24 23:35
Hct 44.0 % (39.0-52.0) 12/04/24 23:35
Plt Count 199 10^3/uL (130-400) 12/04/24 23:35
APTT Cancelled 12/05/24 16:00
Sodium 133 mmol/L (135-145) L 12/07/24 04:52
Potassium 3.5 mmol/L (3.5-5.1) 12/07/24 04:52
BUN 51 mg/dl (9-20) H 12/07/24 04:52
Creatinine 1.7 mg/dL (0.7-1.3) H 12/07/24 04:52
Glucose 94 mg/dl (70-99) 12/07/24 04:52
Troponins
12/04/24 12/05/24 12/05/24
23:35 04:09 10:06
Troponin I 0.026 0.042 H* D 0.042 H*
12/05/24
16:18
Troponin I 0.039 H*
Vital Signs and I&O:
Vital Signs
Temp Pulse Resp BP Pulse Ox
98.2 F 52 16 102/60 98
12/07/24 13:36 12/07/24 13:36 12/07/24 13:36 12/07/24 11:04 12/07/24 13:36
Vital Signs
Temp Pulse Resp BP Pulse Ox
98.2 F 52 16 102/60 98
12/07/24 13:36 12/07/24 13:36 12/07/24 13:36 12/07/24 11:04 12/07/24 13:36
Intake & Output
12/05/24 12/06/24 12/07/24 12/08/24
06:59 06:59 06:59 06:59
Intake Total 60 / 60 1380 / 1380 240 / 240
Output Total 100 / 100 700 / 700 1100 / 1100
Balance -40 / -40 680 / 680 -860 / -860
Physical Exam
Physical Exam
Gen: NAD, AA
HEENT: NC/AT, sclera anicteric
CV: RRR, NL s1/s2
Lungs: CTAB
Abd: S/ND
Ext: No LE edema
Skin: Warm, dry
Neuro: Non-focal
[2024-12-07] MEDS: LASIX 40 MG IV ×2 (14:49→18:46)
[2024-12-07] MEDS: KCL 40 MEQ PO (14:52)
[2024-12-07] MEDS: FLUSH (NSS) 1 FLUSH IV (18:48)
[2024-12-07] MEDS: XANAX 0.25 MG PO (21:03)
--- NOTE | 2024-12-07 22:50 | PTCARENOTE ---
Received pt @ change of shift. AAOx3, VSS-- NSR/SB with BBB and PVCs on monitor. Discussed plan of care for evening and morning, including EKG in AM. Pt verbalizes understanding. Call gregorio within reach.
[2024-12-08] VITALS (8 sets, daily range): BP systolic 103–120; BP diastolic 43–74; BMI 21.3
[2024-12-08 05:03] LABS: Hematocrit 42.3 % (39.0-52.0); Hemoglobin 14.3 g/dL (13.0-18.0); Mean Corp Hgb Conc. 33.8 g/dL (33.0-37.0); Mean Corpuscular Volume 93.4 fL (80.0-94.0); Nucleated Red Blood Cells % 0 % (-); Platelet Count 185 10^3/uL (130-400); Red Cell Dist. Width 13.7 % (11.5-14.5)
[2024-12-08 05:23] LABS: Blood Urea Nitrogen 58 mg/dl (9-20); Calcium 8.7 mg/dl (8.4-10.2); Carbon Dioxide 20 mmol/L (22-30); Chloride 102 mmol/L (98-107); Estimated Creatinine Clearance 30 ml/min; Glucose 103 mg/dl (70-99); Magnesium 2.5 mg/dl (1.6-2.3); Potassium 3.7 mmol/L (3.5-5.1); Sodium 134 mmol/L (135-145); eGFR 35.00
[2024-12-08] MEDS: ELIQUIS 5 MG PO ×2 (09:13→21:22)
[2024-12-08] MEDS: TOPROL XL 25 MG PO ×2 (09:13→21:22)
[2024-12-08] MEDS: LIPITOR 20 MG PO (09:13)
[2024-12-08] MEDS: PACERONE 400 MG PO (09:13)
[2024-12-08] MEDS: LASIX IV (09:14)
--- NOTE | 2024-12-08 10:22 | W.PN.CARDCBS ---
Addendum entered and electronically signed by Kane Burton MD 12/08/24 11:05:
Patient seen, interviewed and examined by me.
Well-appearing, no acute distress
Regular rate and rhythm with normal S1 and S2, no S3 no S4. There is a grade 1/6 apical holosystolic murmur and no rubs. PMI is normally placed.
Lungs are clear to auscultation bilaterally without wheezes rales or rhonchi.
Abdomen soft nontender nondistended with normoactive bowel sounds
Extremities show trace pretibial edema bilaterally no clubbing or cyanosis.
Neurologic exam is grossly nonfocal.
He continues with sinus rhythm after cardioversion 12/07/2024 and on higher dose amiodarone.
He is planned for PVI on Tuesday next week.
He has been getting loaded with amiodarone and QT interval is now prolonged. Review of telemetry shows no ventricular arrhythmias.
Reduce amiodarone to 200 mg twice daily
Replete potassium, goal potassium is between 4 and 5, magnesium is okay at 2.5
Reassess ECG in the morning
Creatinine is rising again and appears euvolemic on exam. Exacerbation of heart failure was likely in large part related to rapid ventricular rates and now in sinus rhythm.
Stop IV Lasix and transition to outpatient oral Lasix of 40 mg twice daily starting tomorrow
Discussed with patient, all of his questions answered. He agrees with our treatment/management strategy
Original Note:
Today's Communication / Plan
-
Continue amiodarone, recheck ECG in morning
Impression / Plan
-
PCP: Dr. Gaxiola
Primary Certified Nursing Assistant: Dr. Burks
Impression:
Acute on chronic HFrEF
Paroxysmal atrial tachycardia vs atypical aflutter with RVR
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
Admission to [facility] for atach with RVR, CHF and successful CV 11/26/24 until 11/29/24
Paroxysmal A-fib/typical atrial flutter
s/p PVI 10/2023
s/p successful EVARISTO/CV 01/26/24
s/p successful CV 11/28/24
s/p successful CV 12/07/2024
Chronic Eliquis OAC
Junctional rhythm seen on ECG following CV 12/07/2024
Chronic HFpEF
Improved CM, EF as low as 35% by EVARISTO 01/26/2024 and improved to 50% by echo 10/08/2024
Moderate MR by echo 10/08/2024
Mild to moderate aortic regurgitation
Chronic LBBB
h/o sinus bradycardia
History of vasovagal syncope
HTN
HLD
LETICIA on CPAP
prostate cancer s/p prostatectomy
Retinal tear of R eye
Lexiscan nuclear stress test 06/07/2022: Fixed defect in basal inferolateral, basal inferior, basal inferoseptal, mid inferior and apical inferior segments consistent with infarction with superimposed soft tissue attenuation, fixed defect in mid
anteroseptal defect consistent with infarction, EF 45%
Echo 08/2022: EF 55%, abnormal paradoxical septal motion consistent with left bundle branch block, mild concentric LVH, severely dilated LA, moderate MR, mild to moderate AR, mild TR, PAP 43 mmHg, trivial pericardial effusion
EVARISTO 01/26/2024: Global hypokinesis with regional variation, abnormal septal motion consistent with left bundle branch block, EF 35%, no thrombus detected in MENDEZ, moderate central MR, mild to moderate eccentric AR
Echo 10/08/2024: EF 50%, moderate MR, mild to moderate aortic regurgitation
Echo 11/27/2024: EF 18%, bilateral atrial dilatation, mild to moderate AI, moderate to severe MR with very eccentric jet directed toward free wall, mild TR, PAP 46 mmHg
Plan:
-Patient was admitted with recurrent atrial arrhythmia on 12/05/2024
-Patient had another successful CV on 12/07/2024 and on ECG postprocedure there was SR with competing junctional rhythm, Cardizem gtt that had been running up until CV was stopped. Usual doses of Toprol XL 25 mg BID and amiodarone 400 mg TID has
been continued
-QTc 575 ms in the setting of A-fib with LBBB on ECG from 12/07/2024 reviewed by me 12/08/2024. Recheck ECG in a.m., ordered by me
-Telemetry reviewed by me 12/08/2024 looks like SR with occasional PVCs versus aberrancy
-Outpatient dose of Eliquis 5 mg BID has been continued
-Patient with a history of tachycardia mediated CM and this is his second admission in 10 days for recurrent atrial arrhythmia. Patient is scheduled for ablation on 12/12/2024, ideally patient can be discharged to home and return electively for
ablation.
-Weight is down at least 6 lbs with Lasix 40 mg IV BID. Patient was taking Lasix 40 mg PO BID prior to admission
-EF 18% by echo 11/27/2024
-GDMT will focus on protestant of SR. MINE/ARB/ARNI/aldosterone antagonist/SGLT2 are on hold with LUCIANA on CKD
-There is evidence of moderate to severe MR by echo 11/27/2024, will reevaluate in 3 months
Progress Note - Certified Nursing Assistant
Subjective
Date of Service: December 08, 2024
He feels well
Objective
Labs:
12/08/24 04:21
12/08/24 04:21
Labs
Hgb 14.3 g/dL (13.0-18.0) 12/08/24 04:21
Hct 42.3 % (39.0-52.0) 12/08/24 04:21
Plt Count 185 10^3/uL (130-400) 12/08/24 04:21
APTT Cancelled 12/05/24 16:00
Sodium 134 mmol/L (135-145) L 12/08/24 04:21
Potassium 3.7 mmol/L (3.5-5.1) 12/08/24 04:21
BUN 58 mg/dl (9-20) H 12/08/24 04:21
Creatinine 1.9 mg/dL (0.7-1.3) H 12/08/24 04:21
Glucose 103 mg/dl (70-99) H 12/08/24 04:21
Troponins
12/05/24 12/05/24
10:06 16:18
Troponin I 0.042 H* 0.039 H*
Vital Signs and I&O:
Vital Signs
Temp Pulse Resp BP Pulse Ox
97 F 60 18 117/75 93
12/08/24 07:02 12/08/24 09:13 12/08/24 07:02 12/08/24 09:13 12/08/24 07:02
Vital Signs
Temp Pulse Resp BP Pulse Ox
97 F 60 18 117/75 93
12/08/24 07:02 12/08/24 09:13 12/08/24 07:02 12/08/24 09:13 12/08/24 07:02
Intake & Output
12/06/24 12/07/24 12/08/24 12/09/24
06:59 06:59 06:59 06:59
Intake Total 1380 / 1380 240 / 240 360 / 360 480 / 480
Output Total 700 / 700 1100 / 1100 450 / 450 150 / 150
Balance 680 / 680 -860 / -860 -90 / -90 330 / 330
Physical Exam
Physical Exam
Gen: NAD
CV: SR on telemetry
Lungs: RA, no wheeze
--- NOTE | 2024-12-08 11:01 | W.CON.NEPH ---
Consultation
-
Date/Time Consultation Requested: 12/08/24 0759
Date/Time Consultation Performed: 12/08/24 1040
Requesting Provider: Bill Umanzor
Performing Provider: Dejah Peoples
Reason for Consultation: LUCIANA
Medical History
-
Chief Complaint: sob
History of Present Illness:
83-year-old male with past medical history significant for atrial flutter (EVARISTO/cardioversion 01/26/2024), paroxysmal A-fib (PVI 10/2023), chronic LBBB, nonischemic cardiomyopathy (suspect transient systolic dysfunction due to atrial flutter with
RVR), HFpEF (grade 3 diastolic dysfunction), LETICIA (CPAP at night), and prostate cancer (status post prostatectomy), who presents to the emergency department with worsening shortness of breath, edema on 12/04.
He had experiencing atrial tachycardia for about 1 month prior to coming to the emergency department. He was recently admitted to the hospital 1 week ago for uncontrolled atrial flutter patient underwent successful cardioversion with hinduism of
sinus rhythm. He was discharged on amiodarone and BB, he was started on lasix, Farxiga for depressed EF, CHF. Cr at d/c was at 1.2.
Since admit he maintained on lasix for CHF and underwent CV on 12/07.
This admit on 12/04 cr noted at 1.9 improved to 1.6, however up trending to 1.9 today hence nephrology consulted.
He reports no cp or sob at rest. Management Architect n/v. no dysuria. No dizziness. NO fever. Bladder scan 0cc.
Past Medical History
atrial flutter (EVARISTO/cardioversion 01/26/2024), paroxysmal A-fib (PVI 10/2023), chronic LBBB, nonischemic cardiomyopathy (suspect transient systolic dysfunction due to atrial flutter with RVR, EF now recovered), HFpEF (grade 3 diastolic dysfunction),
LETICIA (CPAP at night), and prostate cancer (status post prostatectomy)
Past Surgical History: Other (EVARISTO/cardioversion 01/26/2024, PVI 10/2023) and Urological (Robotic prostatectomy)
Social History
Tobacco: Non-Smoker
Alcohol: Occasional
Drug: None
Family History
Family History: Not Pertinent
Allergies / Home Medications
Allergy/AdvReac Type Severity Reaction Status Date / Time
No Known Allergies Allergy Verified 11/26/24 14:00
�Medication �Instructions �Recorded �Confirmed �Type
atorvastatin 20 mg tablet 20 mg PO DAILY High cholesterol 05/13/22 12/05/24 History
therapeutic multivitamin 1 tab PO DAILY Supplement 05/13/22 12/05/24 History
lisinopril 5 mg tablet 5 mg PO DAILY Blood Pressure 05/12/23 12/05/24 History
apixaban 5 mg tablet (Eliquis) 5 mg PO BID Blood Clot 01/25/24 12/05/24 History
Prevention/Tx
metoprolol succinate 50 mg 25 mg PO BID Blood Pressure 11/26/24 12/05/24 History
tablet,extended release 24 hr
(Toprol XL)
dapagliflozin propanediol 10 mg 10 mg PO DAILY #30 tabs 11/28/24 12/05/24 Rx
tablet (Farxiga)
amiodarone 200 mg tablet (Pacerone) 200 mg PO BID 30 days #60 tabs 11/29/24 12/05/24 Rx
furosemide 40 mg tablet 40 mg PO BID@0800,1600 30 days #60 11/29/24 12/05/24 Rx
tabs
Review of Systems
-
All other systems: Negative unless noted
Physical Exam
Vital Signs
Vital Signs
Temp Pulse Resp BP Pulse Ox
97.9 F 60 18 117/75 94
12/08/24 10:51 12/08/24 09:13 12/08/24 10:51 12/08/24 09:13 12/08/24 10:51
Lab Results
WBC 12.2 10^3/uL (4.8-10.8) H 12/08/24 04:21
RBC 4.53 10^6/uL (4.70-6.10) L 12/08/24 04:21
Hgb 14.3 g/dL (13.0-18.0) 12/08/24 04:21
Hct 42.3 % (39.0-52.0) 12/08/24 04:21
Plt Count 185 10^3/uL (130-400) 12/08/24 04:21
Sodium 134 mmol/L (135-145) L 12/08/24 04:21
Potassium 3.7 mmol/L (3.5-5.1) 12/08/24 04:21
Chloride 102 mmol/L (98-107) 12/08/24 04:21
Carbon Dioxide 20 mmol/L (22-30) L 12/08/24 04:21
BUN 58 mg/dl (9-20) H 12/08/24 04:21
Creatinine 1.9 mg/dL (0.7-1.3) H 12/08/24 04:21
eGFR 35.00 12/08/24 04:21
Glucose 103 mg/dl (70-99) H 12/08/24 04:21
Calcium 8.7 mg/dl (8.4-10.2) 12/08/24 04:21
Phosphorus 4.8 mg/dl (2.5-4.5) H 12/05/24 04:09
Fgi-F-Elpbfoowssx Pept 02082 pg/ml 12/04/24 23:35
Albumin 4.1 g/dl (3.5-5.0) 12/04/24 23:35
Physical Exam
General: Awake, Alert, Oriented, AOx3 and No Distress
HEENT: EOMI, Anicteric, Conjunctivae Clear and Facial Symmetry
Respiratory: Clear, Normal Excursion and Nonlabored Respirations
Cardiac: S1/S2 and Regular Rate/Rhythm
Breast: Deferred by me
Abdomen: Soft, Nontender and Nondistended
Musculoskeletal: Edema (trace)
Skin: No Rash
Neuro: Nonfocal/Grossly Intact
Psych: Mood/afflect pleasant, Insight/judgement good and Appropriate
Assessment/Plan
-
IMP:
LUCIANA
Afib with RVR s/p CV /
Acute on chronic HFrEF exacerbation
Troponin elevation, non ischemic myocardial injury 2/2 tachycardia
Subclinical hyperthyroidism
mild hyponatremia
Hypokalemia
Essential HTN
HLD
LETICIA on CPAP
Hx of prostate CA s/p TURP
R retinal tear
PLan:
a/w symp Afib, CHF
LUCIANA-likely cardiorenal, check UA and renal US
bladder scan 0cc
Bp improving today
cont to hold ACEI and Frxiga
agree with changing lasix to po
stable hyponatremia
avoid nephrotoxins
d/w pt
[2024-12-08] MEDS: KCL 40 MEQ PO (11:25)
--- NOTE | 2024-12-08 11:57 | W.PN.HOSP.TC ---
Today's Communication/Plan
-
Nephrology consult
repeat labs in AM
Assessment / Plan
Assessment / Plan
83yo M with PMHX of Afib on ELiquis, HLD, HTN came with episodes of palpitation, diaphoresis and b/l ankle swelling. Was previously scheduled for CV and ablation in Nov. Found CHF exacerbation and afib with RVR. Successful CV done on 12/07/24. Low
threshold for transfer to tertiary center if deteriorates in view of significantly reduced EF
A/P:
#Afib with RVR
#Acute on chronic HFrEF exacerbation
#Troponin elevation, non ischemic myocardial injury 2/2 tachycardia
Troponin within limits seen on previous admissions - peaked at 0.042
as per echo on 11/27/24 - EF fell to 18% with dilated CM, moderate-severe MR
Lasix, daily weight, electrolytes, follow Cr
Cardizem drip and cont home rate control with Amio
Cardio consult: successful CV on 12/07/24
EP consult: if after CV will not sustain in SR - plan for ablation on 12/12/24
cont Eliquis
#Subclinical hyperthyroidism
minimal increase of TSH and FT4 overt ULN - will recheck in 1-2 weeks, no indication for medications
#mild leukocytosis
most likely 2/2 CV
follow off Abx
PAtient has no GI, urinary or respiratory complains
#LUCIANA
#Hypokalemia
replete and follow electrolytes
Cr baseline 1.2
Improving with HR control and Lasix - cardiorenal and tachy-mediated
follow BMP
Urine studies and Nephrology consult
#Essential HTN
#HLD
#LETICIA on CPAP
#Hx of prostate CA s/p TURP
#R retianl tear
cont CPAP
cont home meds
DVT ppx ELiquis
Full code
I have spent at least 36min reviewing chart, test results, communication with consultants and providing direct patient care
Anticipated Discharge: > 48 hours
Subjective/Interval History
-
Date of Service: December 08, 2024
Objective Data
-
Labs:
Laboratory Results
12/08/24
04:21
WBC 12.2 H
Hgb 14.3
Hct 42.3
Plt Count 185
Sodium 134 L
Potassium 3.7
Chloride 102
Carbon Dioxide 20 L
BUN 58 H
Creatinine 1.9 H
Glucose 103 H
Calcium 8.7
Vital Signs:
Vital Signs
Temp Pulse Resp BP Pulse Ox
97.9 F 64 18 115/66 94
12/08/24 10:51 12/08/24 11:00 12/08/24 10:51 12/08/24 10:50 12/08/24 10:51
I&O
12/07/24 12/08/24 12/09/24
06:59 06:59 06:59
Intake Total 240 / 240 360 / 360 480 / 480
Output Total 1100 / 1100 450 / 450 150 / 150
Balance -860 / -860 -90 / -90 330 / 330
Review of Systems
-
History Source: Patient
All other systems: Reviewed and negative
Physical Exam
-
General: No Apparent Distress
Respiratory: Crackles
Cardiac: Regular Rhythm
GI: Soft, Nontender and Nondistended
Genito-urinary: No Costovertebral Tender
[2024-12-08 14:14] LABS: Urine Character Clear (Clear)
[2024-12-08 14:34] LABS: Urine Red Blood Cell 0-2 /HPF (0-2); Urine Urothelial Cell 0-2 /LPF (FEW)
[2024-12-08 14:35] LABS: Urine Squamous Cell 0-2 /LPF (Few)
[2024-12-08 14:36] LABS: Urine White Cell 0-2 /HPF (0-5)
--- NOTE | 2024-12-08 15:13 | PTCARENOTE ---
Assumed care of this pt at 1500, VSS, pt oriented, call gregorio within reach.
[2024-12-08] MEDS: PACERONE 200 MG PO (21:22)
[2024-12-08] MEDS: XANAX 0.25 MG PO (21:28)
[2024-12-09] VITALS (8 sets, daily range): BP systolic 112–129; BP diastolic 54–75; BMI 21.3
[2024-12-09 04:21] LABS: Hematocrit 40.8 % (39.0-52.0); Hemoglobin 14.1 g/dL (13.0-18.0); Mean Corp Hgb Conc. 34.6 g/dL (33.0-37.0); Mean Corpuscular Volume 94.0 fL (80.0-94.0); Nucleated Red Blood Cells % 0 % (-); Platelet Count 158 10^3/uL (130-400); Red Cell Dist. Width 13.4 % (11.5-14.5)
[2024-12-09 04:45] LABS: Blood Urea Nitrogen 59 mg/dl (9-20); Calcium 8.5 mg/dl (8.4-10.2); Carbon Dioxide 21 mmol/L (22-30); Chloride 103 mmol/L (98-107); Estimated Creatinine Clearance 33 ml/min; Glucose 94 mg/dl (70-99); Magnesium 2.5 mg/dl (1.6-2.3); Potassium 3.8 mmol/L (3.5-5.1); Sodium 134 mmol/L (135-145); eGFR 40.00
--- NOTE | 2024-12-09 06:28 | SUR.OPER ---
Pt NSR on monitor, VSS. SOB at rest 97% on 2L. Denies any pain. Call gregorio within reach
[2024-12-09] MEDS: ELIQUIS 5 MG PO ×2 (08:30→19:51)
[2024-12-09] MEDS: LIPITOR 20 MG PO (08:30)
[2024-12-09] MEDS: LASIX 40 MG PO (08:30)
[2024-12-09] MEDS: TOPROL XL 25 MG PO ×2 (08:30→19:51)
[2024-12-09] MEDS: PACERONE 200 MG PO ×2 (08:30→19:51)
--- NOTE | 2024-12-09 09:49 | PTCARENOTE ---
12/09/24 0945 Called into patient's room to help assist him back to bed. Pt 'not feeling right'. pt assisted back to bed with minimal help. On gambling monitor NSR 70. BP 129/68 Pt requesting his nasal cannula, placed on 2L NC. Pulse ox 93%-95%. Pt
POTTER+. All AM meds given including PO Lasix. Will monitor patient.
--- NOTE | 2024-12-09 11:29 | W.PN.CARDCBS ---
Today's Communication / Plan
-
Intensify diuretic
Maintain amiodarone
PVI on Tuesday
Impression / Plan
-
PCP: Dr. Gaxiola
Primary Poker Prop Player: Dr. Burks
Impression:
Acute on chronic HFrEF
Paroxysmal atrial tachycardia vs atypical aflutter with RVR
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
Admission to [facility] for atach with RVR, CHF and successful CV 11/26/24 until 11/29/24
Paroxysmal A-fib/typical atrial flutter
s/p PVI 10/2023
s/p successful EVARISTO/CV 01/26/24
s/p successful CV 11/28/24
s/p successful CV 12/07/2024
Chronic Eliquis OAC
Junctional rhythm seen on ECG following CV 12/07/2024
Chronic HFpEF
Improved CM, EF as low as 35% by EVARISTO 01/26/2024 and improved to 50% by echo 10/08/2024
Moderate MR by echo 10/08/2024
Mild to moderate aortic regurgitation
Chronic LBBB
h/o sinus bradycardia
History of vasovagal syncope
HTN
HLD
LETICIA on CPAP
prostate cancer s/p prostatectomy
Retinal tear of R eye
Lexiscan nuclear stress test 06/07/2022: Fixed defect in basal inferolateral, basal inferior, basal inferoseptal, mid inferior and apical inferior segments consistent with infarction with superimposed soft tissue attenuation, fixed defect in mid
anteroseptal defect consistent with infarction, EF 45%
Echo 08/2022: EF 55%, abnormal paradoxical septal motion consistent with left bundle branch block, mild concentric LVH, severely dilated LA, moderate MR, mild to moderate AR, mild TR, PAP 43 mmHg, trivial pericardial effusion
EVARISTO 01/26/2024: Global hypokinesis with regional variation, abnormal septal motion consistent with left bundle branch block, EF 35%, no thrombus detected in MENDEZ, moderate central MR, mild to moderate eccentric AR
Echo 10/08/2024: EF 50%, moderate MR, mild to moderate aortic regurgitation
Echo 11/27/2024: EF 18%, bilateral atrial dilatation, mild to moderate AI, moderate to severe MR with very eccentric jet directed toward free wall, mild TR, PAP 46 mmHg
Plan:
Patient was admitted with recurrent atrial arrhythmia on 12/05/2024
Patient had another successful CV on 12/07/2024
He had been getting Amio loaded but QTc has prolonged, amiodarone reduced on 12/09/2019 25 to 200 mg p.o. twice daily and potassium repleted
ECG today finds corrected QT interval is 563 ms in the presence of left bundle branch block which is improved from 575 on 12/07/2024
Continue with lower dose amiodarone at 200 mg twice daily as we await PVI on Tuesday.
Will replete potassium again his potassium is 3.8
Continue to follow telemetry and ECGs
Maintain Eliquis 5 mg twice daily
Patient with a history of tachycardia mediated CM, EF 18% by echo 11/27/2024
GDMT will focus on gnosticist and maintenance of SR.
MINE/ARB/ARNI/aldosterone antagonist/SGLT2 are on hold with LUCIANA on CKD
I had planned to transition from IV to oral Lasix however proBNP from this morning is still quite elevated at 20,300
Will reinitiate IV Lasix at 40 mg IV twice daily
Follow potassium and magnesium closely, goal potassium between 4 and 5 and magnesium between 2 and 3
Nephrology following
There is evidence of moderate to severe MR by echo 11/27/2024, will reevaluate in 3 months
Progress Note - Poker Prop Player
Subjective
Date of Service: December 09, 2024
He tells me that he feels well this morning no chest pain shortness breath palpitations or dizziness
Objective
Labs:
12/09/24 03:51
12/09/24 03:51
Labs
Hgb 14.1 g/dL (13.0-18.0) 12/09/24 03:51
Hct 40.8 % (39.0-52.0) 12/09/24 03:51
Plt Count 158 10^3/uL (130-400) 12/09/24 03:51
APTT Cancelled 12/05/24 16:00
Sodium 134 mmol/L (135-145) L 12/09/24 03:51
Potassium 3.8 mmol/L (3.5-5.1) 12/09/24 03:51
BUN 59 mg/dl (9-20) H 12/09/24 03:51
Creatinine 1.7 mg/dL (0.7-1.3) H 12/09/24 03:51
Glucose 94 mg/dl (70-99) 12/09/24 03:51
Vital Signs and I&O:
Vital Signs
Temp Pulse Resp BP Pulse Ox
97.6 F 72 18 103/43 95
12/09/24 07:34 12/09/24 08:30 12/09/24 07:34 12/08/24 22:47 12/09/24 07:34
Vital Signs
Temp Pulse Resp BP Pulse Ox
97.6 F 72 18 103/43 95
12/09/24 07:34 12/09/24 08:30 12/09/24 07:34 12/08/24 22:47 12/09/24 07:34
Intake & Output
12/07/24 12/08/24 12/09/24 12/10/24
06:59 06:59 06:59 06:59
Intake Total 240 / 240 360 / 360 880 / 880
Output Total 1100 / 1100 450 / 450 1000 / 1000 475 / 475
Balance -860 / -860 -90 / -90 -120 / -120 -475 / -475
Physical Exam
Physical Exam
Well-appearing, no acute distress
Regular rate and rhythm normal S1 and S2 no S3 no S4 grade 1/6 apical holosystolic murmur no rubs
Lungs clear auscultation bilaterally without wheezes rales or rhonchi
Abdomen soft nontender nondistended normoactive bowel
Extremities no clubbing stenosis or edema
--- NOTE | 2024-12-09 11:45 | W.PN.HOSP.TC ---
Today's Communication/Plan
-
short episodes of sinus arrhythmia on tele, no Afib recurrence
Cr improved with switch to ral lasix, US pending
further mgmt by card
Assessment / Plan
Assessment / Plan
83yo M with PMHX of Afib on ELiquis, HLD, HTN came with episodes of palpitation, diaphoresis and b/l ankle swelling. Was previously scheduled for CV and ablation in Nov. Found CHF exacerbation and afib with RVR. Successful CV done on 12/07/24. Low
threshold for transfer to tertiary center if deteriorates in view of significantly reduced EF. Plan for ablation on 12/12/24 and due to high risk CHF - planned to be done as inpatient
A/P:
#Afib with RVR
#Acute on chronic HFrEF exacerbation
#Troponin elevation, non ischemic myocardial injury 2/2 tachycardia
#IAtrogenic QTc prolongation
Decreased amio as per Card
Troponin within limits seen on previous admissions - peaked at 0.042
as per echo on 11/27/24 - EF fell to 18% with dilated CM, moderate-severe MR
Lasix, daily weight, electrolytes, follow Cr
Cardizem drip and cont home rate control with Amio
Cardio consult: successful CV on 12/07/24
EP consult: if after CV will not sustain in SR - plan for ablation on 12/12/24
cont Eliquis
#Subclinical hyperthyroidism
minimal increase of TSH and FT4 overt ULN - will recheck in 1-2 weeks, no indication for medications
#mild leukocytosis
most likely 2/2 CV
follow off Abx
PAtient has no GI, urinary or respiratory complains
#LUCIANA
#Hypokalemia
replete and follow electrolytes
Cr baseline 1.2
Improving with HR control and Lasix - cardiorenal and tachy-mediated
follow BMP
Urine studies and Nephrology consult
US renal
#Essential HTN
#HLD
#LETICIA on CPAP
#Hx of prostate CA s/p TURP
#R retianl tear
cont CPAP
cont home meds
DVT ppx ELiquis
Full code
I have spent at least 36min reviewing chart, test results, communication with consultants and providing direct patient care
Anticipated Discharge: > 48 hours
Subjective/Interval History
-
Date of Service: December 09, 2024
Objective Data
-
Labs:
Laboratory Results
12/09/24
03:51
WBC 9.6
Hgb 14.1
Hct 40.8
Plt Count 158
Sodium 134 L
Potassium 3.8
Chloride 103
Carbon Dioxide 21 L
BUN 59 H
Creatinine 1.7 H
Glucose 94
Calcium 8.5
Vital Signs:
Vital Signs
Temp Pulse Resp BP Pulse Ox
97.5 F 79 22 115/75 94
12/09/24 11:28 12/09/24 11:28 12/09/24 11:28 12/09/24 11:28 12/09/24 11:28
I&O
12/08/24 12/09/24 12/10/24
06:59 06:59 06:59
Intake Total 360 / 360 880 / 880
Output Total 450 / 450 1000 / 1000 475 / 475
Balance -90 / -90 -120 / -120 -475 / -475
Review of Systems
-
History Source: Patient
All other systems: Reviewed and negative
EENT: Reports No Symptoms Reported
Physical Exam
-
General: No Apparent Distress
Respiratory: Clear to Auscultation; Negative Crackles
Musculoskeletal: No Clubbing, No Cyanosis and No Edema
Psych: Calm
--- NOTE | 2024-12-09 12:17 | W.PN.NEPH.PH ---
Today's Communication / Plan
-
f/u renal US and labs
diuresis per cards
Assessment/Plan
-
IMP:
LUCIANA
Afib with RVR s/p CV 12/07
Acute on chronic HFrEF exacerbation
Troponin elevation, non ischemic myocardial injury 2/2 tachycardia
Subclinical hyperthyroidism
mild hyponatremia
Hypokalemia
Essential HTN
HLD
LETICIA on CPAP
Hx of prostate CA s/p TURP
R retinal tear
PLan:
a/w symp Afib, CHF
LUCIANA-likely cardiorenal, bland UA, U na is low suggest cardiorenal
cr slightly better at 1.7, pending renal US today, bladder scan was 0cc
Bp stable on BB
cont to hold ACEI and Farxiga
diuresis per cards, BNP remains high
stable hyponatremia from hypervolemia
avoid nephrotoxins
d/w pt
-
-
Date of Service: December 09, 2024
CC / HPI / ROS
-
Chief Complaint:
LUCIANA
History of Present Illness:
cr slightly better at 1.7
BP stable
BNP high 20k
Review of Systems:
POTTER
no cp
no n/v
Labs
-
Labs:
WBC 9.6 10^3/uL (4.8-10.8) 12/09/24 03:51
RBC 4.34 10^6/uL (4.70-6.10) L 12/09/24 03:51
Hgb 14.1 g/dL (13.0-18.0) 12/09/24 03:51
Hct 40.8 % (39.0-52.0) 12/09/24 03:51
Plt Count 158 10^3/uL (130-400) 12/09/24 03:51
Sodium 134 mmol/L (135-145) L 12/09/24 03:51
Potassium 3.8 mmol/L (3.5-5.1) 12/09/24 03:51
Chloride 103 mmol/L (98-107) 12/09/24 03:51
Carbon Dioxide 21 mmol/L (22-30) L 12/09/24 03:51
BUN 59 mg/dl (9-20) H 12/09/24 03:51
Creatinine 1.7 mg/dL (0.7-1.3) H 12/09/24 03:51
eGFR 40.00 12/09/24 03:51
Glucose 94 mg/dl (70-99) 12/09/24 03:51
Calcium 8.5 mg/dl (8.4-10.2) 12/09/24 03:51
Phosphorus 4.8 mg/dl (2.5-4.5) H 12/05/24 04:09
Spq-U-Osedgumnkvc Pept 34756 pg/ml 12/09/24 03:51
Albumin 4.1 g/dl (3.5-5.0) 12/04/24 23:35
Physical Exam
-
Vital Signs:
Vital Signs
Temp Pulse Resp BP Pulse Ox
97.5 F 79 22 115/75 94
12/09/24 11:28 12/09/24 11:28 12/09/24 11:28 12/09/24 11:28 12/09/24 11:28
Cardiovascular:: Regular rate and rhythm
Respiratory:: Bilateral: CTA (decreased)
Lung Excursion:: Normal
Abdomen:: Nontender and Soft
Extremity Edema:: +1: Bilateral:
Rose Catheter: No
[2024-12-09] MEDS: KCL 40 MEQ PO (12:24)
[2024-12-09] MEDS: LASIX 40 MG IV (15:33)
--- NOTE | 2024-12-09 20:20 | PTCARENOTE ---
Pt rec'd at change of shift in bed. Pt appeared anxious, fidgety. requesting Xanax at HS. Lungs diminished 1/[address] way up, no cough. Sinus with BBB on telemetry. Bladder scan performed. Pt had voided approx an hour prior-only 13 cc noted on bladder scan.
[2024-12-09] MEDS: XANAX 0.25 MG PO (22:02)
[2024-12-10] VITALS (9 sets, daily range): BP systolic 99–130; BP diastolic 55–77; BMI 20.9
[2024-12-10 05:08] LABS: Blood Urea Nitrogen 57 mg/dl (9-20); Calcium 8.6 mg/dl (8.4-10.2); Carbon Dioxide 25 mmol/L (22-30); Chloride 103 mmol/L (98-107); Estimated Creatinine Clearance 37 ml/min; Glucose 86 mg/dl (70-99); Magnesium 2.6 mg/dl (1.6-2.3); Potassium 3.5 mmol/L (3.5-5.1); Sodium 137 mmol/L (135-145); eGFR 46.48
--- NOTE | 2024-12-10 06:15 | PTCARENOTE ---
Pt with 12 beat run of VT at 0546 b/p 118/67, pt asympt
[2024-12-10] MEDS: PACERONE 200 MG PO (08:47)
[2024-12-10] MEDS: ELIQUIS 5 MG PO ×2 (08:47→20:00)
[2024-12-10] MEDS: LIPITOR 20 MG PO (08:47)
[2024-12-10] MEDS: TOPROL XL 25 MG PO (08:47)
[2024-12-10] MEDS: FLUSH (NSS) 1 FLUSH IV ×2 (08:48→16:59)
[2024-12-10] MEDS: LASIX 40 MG IV ×2 (08:48→16:59)
--- NOTE | 2024-12-10 09:07 | PTCARENOTE ---
Patient sitting oob in the chair this morning, anxious appearing at times with some HELDER, breath sounds decreased bilaterally. Diuresing as ordered, patient is aware to use urinal for accurate I&O.
--- NOTE | 2024-12-10 10:38 | W.PN.NEPH.PH ---
Today's Communication / Plan
-
lasix continues
Assessment/Plan
-
IMP:
LUCIANA
Afib with RVR s/p CV 12/07
Acute on chronic HFrEF exacerbation
Troponin elevation, non ischemic myocardial injury 2/2 tachycardia
Subclinical hyperthyroidism
mild hyponatremia
Hypokalemia
Essential HTN
HLD
LETICIA on CPAP
Hx of prostate CA s/p TURP
R retinal tear
Plan:
follow BMP
continue diuresis, suspect he is close to a good weight
PVI tuesday
currently off ACEI/farxiga. could restart farxiga if desired
-
-
Date of Service: December 10, 2024
CC / HPI / ROS
-
Chief Complaint:
LUCIANA
History of Present Illness:
LUCIANA/cr slightly better at 1.5
BP stable
diuresing well with IV lasix for decompensated HF
Review of Systems:
no SOB
no cp
no n/v
Labs
-
Labs:
WBC 9.6 10^3/uL (4.8-10.8) 12/09/24 03:51
RBC 4.34 10^6/uL (4.70-6.10) L 12/09/24 03:51
Hgb 14.1 g/dL (13.0-18.0) 12/09/24 03:51
Hct 40.8 % (39.0-52.0) 12/09/24 03:51
Plt Count 158 10^3/uL (130-400) 12/09/24 03:51
Sodium 137 mmol/L (135-145) 12/10/24 04:29
Potassium 3.5 mmol/L (3.5-5.1) 12/10/24 04:29
Chloride 103 mmol/L (98-107) 12/10/24 04:29
Carbon Dioxide 25 mmol/L (22-30) 12/10/24 04:29
BUN 57 mg/dl (9-20) H 12/10/24 04:29
Creatinine 1.5 mg/dL (0.7-1.3) H 12/10/24 04:29
eGFR 46.48 12/10/24 04:29
Glucose 86 mg/dl (70-99) 12/10/24 04:29
Calcium 8.6 mg/dl (8.4-10.2) 12/10/24 04:29
Phosphorus 4.8 mg/dl (2.5-4.5) H 12/05/24 04:09
Faq-X-Bejupgczaqj Pept 88580 pg/ml 12/09/24 03:51
Albumin 4.1 g/dl (3.5-5.0) 12/04/24 23:35
Physical Exam
-
Vital Signs:
Vital Signs
Temp Pulse Resp BP Pulse Ox
97.9 F 68 18 130/66 95
12/10/24 07:21 12/10/24 08:48 12/10/24 07:21 12/10/24 08:48 12/10/24 07:21
Cardiovascular:: Regular rate and rhythm
Respiratory:: Bilateral: Coarse
Lung Excursion:: Normal
Abdomen:: Nontender and Soft
Bowel Sounds:: Normal
Extremity Edema:: +1: Bilateral:
--- NOTE | 2024-12-10 12:07 | CM ---
Chart reviewed. Patient is independent of ADLS, lives with his in a 3 STH, 4 CONTRERAS, 0 DME. Patient going for a PVI on 12/12/24. Plan is for the patient to return home. CM to follow
--- NOTE | 2024-12-10 14:32 | W.PN.CARDCBS ---
Addendum entered and electronically signed by Ramiro Burks MD 12/10/24 14:46:
I saw and examined the patient.
The RADIOGRAPHER ANGIOGRAM or PA's note was reviewed and I agree with the note.
Comment: General: Well developed, well nourished in NAD.
Neck: Supple, no JVD, HJR, carotids +2 B/L, no bruits bilaterally.
Heart: Non displaced PMI, RRR, no murmurs, No S3, S4, no rubs.
Lungs: Clear to auscultation bilaterally, no wheeze, rhonchi, rubs bilaterally,
normal expiratory phase.
Extremities: No clubbing, cyanosis or edema bilaterally.
Neuro: Grossly nonfocal, awake, alert and oriented x3.
Remains in sinus rhythm. QT mildly prolonged but okay. Continue amiodarone. 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 Will need to reevaluate MR at some point with
hindu of sinus rhythm and improved ejection fraction.
Original Note:
Today's Communication / Plan
-
Recheck ECG in AM
Impression / Plan
-
PCP: Dr. Gaxiola
Primary Publishing Specialist: Dr. Burks
Impression:
Acute on chronic HFrEF
Paroxysmal atrial tachycardia vs atypical aflutter with RVR
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
Admission to [facility] for atach with RVR, CHF and successful CV 11/26/24 until 11/29/24
Paroxysmal A-fib/typical atrial flutter
s/p PVI 10/2023
s/p successful EVARISTO/CV 01/26/24
s/p successful CV 11/28/24
s/p successful CV 12/07/2024
Chronic Eliquis OAC
Junctional rhythm seen on ECG following CV 12/07/2024
Chronic HFpEF
Improved CM, EF as low as 35% by EVARISTO 01/26/2024 and improved to 50% by echo 10/08/2024
Moderate MR by echo 10/08/2024
Mild to moderate aortic regurgitation
Chronic LBBB
h/o sinus bradycardia
History of vasovagal syncope
HTN
HLD
LETICIA on CPAP
prostate cancer s/p prostatectomy
Retinal tear of R eye
Lexiscan nuclear stress test 06/07/2022: Fixed defect in basal inferolateral, basal inferior, basal inferoseptal, mid inferior and apical inferior segments consistent with infarction with superimposed soft tissue attenuation, fixed defect in mid
anteroseptal defect consistent with infarction, EF 45%
Echo 08/2022: EF 55%, abnormal paradoxical septal motion consistent with left bundle branch block, mild concentric LVH, severely dilated LA, moderate MR, mild to moderate AR, mild TR, PAP 43 mmHg, trivial pericardial effusion
EVARISTO 01/26/2024: Global hypokinesis with regional variation, abnormal septal motion consistent with left bundle branch block, EF 35%, no thrombus detected in MENDEZ, moderate central MR, mild to moderate eccentric AR
Echo 10/08/2024: EF 50%, moderate MR, mild to moderate aortic regurgitation
Echo 11/27/2024: EF 18%, bilateral atrial dilatation, mild to moderate AI, moderate to severe MR with very eccentric jet directed toward free wall, mild TR, PAP 46 mmHg
Plan:
-Patient was admitted with recurrent atrial arrhythmia on 12/05/2024
-Patient had another successful CV on 12/07/2024 and on ECG postprocedure there was SR with competing junctional rhythm, Cardizem gtt that had been running up until CV was stopped.
-Usual dose of Toprol XL 25 mg BID continued
-Patient was also being loaded with amiodarone prior to admission and the dose was increased to 400 mg TID during this admission, but QTc prolonged and dose reduced back to 200 mg BID on 12/08/2024.
-Repeat ECG from 12/10/2024 was reviewed by me and QTc continues to be long at 572 ms, recheck ECG in the a.m., orders placed by me.
-MAR reviewed by me and no additional QT prolonging medications noted.
-Outpatient dose of Eliquis 5 mg BID has been continued
-Patient with a history of tachycardia mediated CM and this is his second admission in 2 weeks for recurrent atrial arrhythmia. Patient is scheduled for ablation on 12/12/2024.
-Weight is down at least 14 lbs with Lasix 40 mg IV BID. Patient was taking Lasix 40 mg PO BID prior to admission
-EF 18% by echo 11/27/2024
-GDMT will focus on hindu of SR. MINE/ARB/ARNI/aldosterone antagonist/SGLT2 are on hold with LUCIANA on CKD
-There is evidence of moderate to severe MR by echo 11/27/2024, will reevaluate in 3 months
Progress Note - Publishing Specialist
Subjective
Date of Service: December 10, 2024
He feels better
Objective
Labs:
12/09/24 03:51
12/10/24 04:29
Labs
Hgb 14.1 g/dL (13.0-18.0) 12/09/24 03:51
Hct 40.8 % (39.0-52.0) 12/09/24 03:51
Plt Count 158 10^3/uL (130-400) 12/09/24 03:51
APTT Cancelled 12/05/24 16:00
Sodium 137 mmol/L (135-145) 12/10/24 04:29
Potassium 3.5 mmol/L (3.5-5.1) 12/10/24 04:29
BUN 57 mg/dl (9-20) H 12/10/24 04:29
Creatinine 1.5 mg/dL (0.7-1.3) H 12/10/24 04:29
Glucose 86 mg/dl (70-99) 12/10/24 04:29
Vital Signs and I&O:
Vital Signs
Temp Pulse Resp BP Pulse Ox
98.4 F 65 15 105/55 95
12/10/24 11:32 12/10/24 11:32 12/10/24 11:32 12/10/24 11:32 12/10/24 11:32
Vital Signs
Temp Pulse Resp BP Pulse Ox
98.4 F 65 15 105/55 95
12/10/24 11:32 12/10/24 11:32 12/10/24 11:32 12/10/24 11:32 12/10/24 11:32
Intake & Output
12/08/24 12/09/24 12/10/24 12/11/24
06:59 06:59 06:59 06:59
Intake Total 360 / 360 880 / 880 720 / 720
Output Total 450 / 450 1000 / 1000 1375 / 1375 500 / 500
Balance -90 / -90 -120 / -120 -1375 / -1375 220 / 220
Physical Exam
Physical Exam
Gen: NAD
CV: SR on telemetry
Lungs: RA, no wheeze
--- NOTE | 2024-12-10 17:12 | W.PN.HOSP.TC ---
Today's Communication/Plan
-
Assessment / Plan
Assessment / Plan
General: No Apparent Distress, Comfortable and Conversant
HEENT: NormoCephalic, Moist mucous membranes, Atraumatic
Respiratory: Clear and Non Labored Respirations
Cardiac: S1/S2 and Regular Rhythm; No Rub or Gallop
GI: Soft, Non Tender, Non Distended and Normal Bowel Sounds
Musculoskeletal: No Edema, no deformity
: NO Rose
Neuro: Awake, Alert, Nonfocal/grossly intact
Psych: Calm and Intact Judgment/Insight
83yo M with PMHX of Afib on Eliquis, HLD, HTN came with episodes of palpitation, diaphoresis and b/l ankle swelling. Was previously scheduled for CV and ablation in Nov. Found CHF exacerbation and afib with RVR. Successful CV done on 12/07/24. Low
threshold for transfer to tertiary center if deteriorates in view of significantly reduced EF. Plan for ablation on 12/12/24 and due to high risk CHF - planned to be done as inpatient
A/P:
#Afib with RVR
#Acute on chronic HFrEF exacerbation
#Troponin elevation, non ischemic myocardial injury 2/2 tachycardia
#Iatrogenic QTc prolongation
Troponin within limits seen on previous admissions - peaked at 0.042
as per echo on 11/27/24 - EF fell to 18% with dilated CM, moderate-severe MR
Lasix 40 mg IV twice daily, daily weight, electrolytes, follow Cr
Cardizem drip discontinued, continue amiodarone 200 mg p.o. twice daily, and metoprolol succinate 25 mg p.o. twice daily
Cardio following, successful CV on 12/07/24
EP following, plan for ablation on 12/12/24
cont Eliquis
#Subclinical hyperthyroidism
minimal increase of TSH and FT4 overt ULN - will recheck in 1-2 weeks, no indication for medications
#mild leukocytosis
most likely 2/2 CV
- Resolved
follow off Abx
Patient has no GI, urinary or respiratory complains
#LUCIANA
#Hypokalemia
replete and follow electrolytes
Cr baseline 1.2
Renal function improving with HR control and Lasix - cardiorenal and tachy-mediated
follow BMP
Nephrology following
US renal unremarkable
#Essential HTN
#HLD
#LETICIA on CPAP
#Hx of prostate CA s/p TURP
#R retinal tear
cont CPAP
cont home meds
DVT ppx Eliquis
Full code
I have spent at least 40 min reviewing chart, test results, communication with consultants and providing direct patient care
Anticipated Discharge: 24 - 48 hours
Subjective/Interval History
-
Date of Service: December 10, 2024
Patient was seen and examined at bedside this morning. No acute complaints. Awaiting PVI tomorrow 12/12. Diuresing with IV Lasix twice daily.
Objective Data
-
Vital Signs:
Vital Signs
Temp Pulse Resp BP Pulse Ox
97.2 F 67 15 108/61 96
12/10/24 15:11 12/10/24 16:59 12/10/24 15:11 12/10/24 16:59 12/10/24 15:11
I&O
12/09/24 12/10/24 12/11/24
06:59 06:59 06:59
Intake Total 880 / 880 720 / 720
Output Total 1000 / 1000 1375 / 1375 750 / 750
Balance -120 / -120 -1375 / -1375 -30 / -30
Review of Systems
-
History Source: Patient
All other systems: Reviewed and negative
Physical Exam
-
General: No Apparent Distress
--- NOTE | 2024-12-10 18:28 | PTCARENOTE ---
Patient resting in bed, at the bedside. HR noted to be in the low 100's and irregular. EKG done, confirming AF, patient is asymptomatic. 114/76, TT sent to Dr. ROSEY Avilez to notify him of rhythm change. Patient is for scheduled ablation on
Tuesday.
[2024-12-10] MEDS: LOPRESSOR 25 MG PO ×2 (19:59→23:50)
--- NOTE | 2024-12-10 21:15 | PTCARENOTE ---
Lopressor 25 mg given as ordered as stat dose. Pt remains in afib low 100's.
[2024-12-10] MEDS: XANAX 0.25 MG PO (23:50)
[2024-12-11] VITALS (7 sets, daily range): BP systolic 94–115; BP diastolic 72–87; BMI 20.6
[2024-12-11] MEDS: LOPRESSOR 25 MG PO ×4 (05:13→23:06)
[2024-12-11 06:04] LABS: Blood Urea Nitrogen 51 mg/dl (9-20); Calcium 8.3 mg/dl (8.4-10.2); Carbon Dioxide 26 mmol/L (22-30); Chloride 101 mmol/L (98-107); Estimated Creatinine Clearance 39 ml/min; Glucose 89 mg/dl (70-99); Potassium 3.2 mmol/L (3.5-5.1); Sodium 137 mmol/L (135-145); eGFR 50.49
[2024-12-11] MEDS: ELIQUIS 5 MG PO ×2 (08:29→19:36)
[2024-12-11] MEDS: LIPITOR 20 MG PO (08:29)
[2024-12-11] MEDS: KCL 40 MEQ PO (08:29)
[2024-12-11] MEDS: LASIX 40 MG IV ×2 (08:30→16:14)
--- NOTE | 2024-12-11 09:00 | W.PN.CARDCBS ---
Addendum entered and electronically signed by Ramiro Burks MD 12/11/24 10:09:
I saw and examined the patient.
The ENVIRONMENTAL LABORATORY TECHNICIAN or PA's note was reviewed and I agree with the note.
Comment: General: Well developed, well nourished in NAD.
Neck: Supple, no JVD, HJR, carotids +2 B/L, no bruits bilaterally.
Heart: Non displaced PMI, regular, tachycardic, no murmurs, No S3, S4, no rubs.
Lungs: Crackles at the bases bilaterally
Extremities: No clubbing, cyanosis or edema bilaterally.
Neuro: Grossly nonfocal, awake, alert and oriented x3.
He is back in atrial tachycardia. He is for ablation tomorrow 12/12. Continue IV Lasix for an element of CHF with crackles in the lungs. Hopefully cardiomyopathy will improve in sinus rhythm which occurred in the past. Discussed with EP and will
hold amiodarone.
Original Note:
Today's Communication / Plan
-
for ablation 12/12
NPO after midnight
amio presently on hold for prolonged QTc
continue IV lasix
Impression / Plan
-
PCP: Dr. Gaxiola
Primary Bridge Expert: Dr. Burks
Impression:
Acute on chronic HFrEF
Paroxysmal atrial tachycardia vs atypical aflutter with RVR
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
Admission to [facility] for atach with RVR, CHF and successful CV 11/26/24 until 11/29/24
Paroxysmal A-fib/typical atrial flutter
s/p PVI 10/2023
s/p successful EVARISTO/CV 01/26/24
s/p successful CV 11/28/24
s/p successful CV 12/07/2024
Chronic Eliquis OAC
Junctional rhythm seen on ECG following CV 12/07/2024
Chronic HFpEF
Improved CM, EF as low as 35% by EVARISTO 01/26/2024 and improved to 50% by echo 10/08/2024
Moderate MR by echo 10/08/2024
Mild to moderate aortic regurgitation
Chronic LBBB
h/o sinus bradycardia
History of vasovagal syncope
HTN
HLD
LETICIA on CPAP
prostate cancer s/p prostatectomy
Retinal tear of R eye
Lexiscan nuclear stress test 06/07/2022: Fixed defect in basal inferolateral, basal inferior, basal inferoseptal, mid inferior and apical inferior segments consistent with infarction with superimposed soft tissue attenuation, fixed defect in mid
anteroseptal defect consistent with infarction, EF 45%
Echo 08/2022: EF 55%, abnormal paradoxical septal motion consistent with left bundle branch block, mild concentric LVH, severely dilated LA, moderate MR, mild to moderate AR, mild TR, PAP 43 mmHg, trivial pericardial effusion
EVARISTO 01/26/2024: Global hypokinesis with regional variation, abnormal septal motion consistent with left bundle branch block, EF 35%, no thrombus detected in MENDEZ, moderate central MR, mild to moderate eccentric AR
Echo 10/08/2024: EF 50%, moderate MR, mild to moderate aortic regurgitation
Echo 11/27/2024: EF 18%, bilateral atrial dilatation, mild to moderate AI, moderate to severe MR with very eccentric jet directed toward free wall, mild TR, PAP 46 mmHg
Plan:
-Patient was admitted with recurrent atrial arrhythmia on 12/05/2024
-Patient had another successful CV on 12/07/2024 and on ECG postprocedure there was SR with competing junctional rhythm, Cardizem gtt that had been running up until CV was stopped.
-Unfortunately, patient went back into atrial tachycardia last evening around 1800. Heart rates remain in 100s. Currently on lopressor 25mg Q6H
-QTc remains prolonged by EKG this morning. Amiodarone was placed on hold 10/6 PM due to prolonged QT, follow.
-Patient with a history of tachycardia mediated CM and this is his second admission in 2 weeks for recurrent atrial arrhythmia. Plan for ablation in a.m. N.p.o. after midnight
-Maurice will be placed on hold preprocedure
-Weight is down at least 14 lbs with Lasix 40 mg IV BID, continue. Replete potassium. Creatinine improved to 1.4. Patient was taking Lasix 40 mg PO BID prior to admission
-EF 18% by echo 11/27/2024, will need repeat echo in several months to reassess EF
-GDMT will focus on restorationism of SR. MINE/ARB/ARNI/aldosterone antagonist/SGLT2 are on hold with LUCIANA on CKD
-There is evidence of moderate to severe MR by echo 11/27/2024, will reevaluate in 3 months
-Discussed with nursing
Progress Note - Bridge Expert
Subjective
Date of Service: December 11, 2024
Reports remains with some dyspnea with exertion and conversational dyspnea. No chest pain.
Objective
Labs:
12/09/24 03:51
12/11/24 05:07
Labs
Hgb 14.1 g/dL (13.0-18.0) 12/09/24 03:51
Hct 40.8 % (39.0-52.0) 12/09/24 03:51
Plt Count 158 10^3/uL (130-400) 12/09/24 03:51
APTT Cancelled 12/05/24 16:00
Sodium 137 mmol/L (135-145) 12/11/24 05:07
Potassium 3.2 mmol/L (3.5-5.1) L 12/11/24 05:07
BUN 51 mg/dl (9-20) H 12/11/24 05:07
Creatinine 1.4 mg/dL (0.7-1.3) H 12/11/24 05:07
Glucose 89 mg/dl (70-99) 12/11/24 05:07
Vital Signs and I&O:
Vital Signs
Temp Pulse Resp BP Pulse Ox
97.5 F 114 18 107/83 99
12/11/24 07:31 12/11/24 08:30 12/11/24 07:31 12/11/24 08:30 12/11/24 07:31
Vital Signs
Temp Pulse Resp BP Pulse Ox
97.5 F 114 18 107/83 99
12/11/24 07:31 12/11/24 08:30 12/11/24 07:31 12/11/24 08:30 12/11/24 07:31
Intake & Output
12/09/24 12/10/24 12/11/24 12/12/24
07:59 07:59 07:59 07:59
Intake Total 880 / 880 1020 / 1020
Output Total 1000 / 1000 1375 / 1525 1875 / 1875
Balance -120 / -120 -1375 / -1285 -855 / -855
Physical Exam
Physical Exam
GEN: No distress, awake, alert, oriented x3. Sitting in chair. Conversational dyspnea
HEENT: supple, anicteric, mmm, EOMI
LUNGS: Crackles B/L bases, no wheezes/rales
CV: Irreg, S1/S2, 1/6 murmur
ABD: soft, BS+, NT/ND
EXT: No cyanosis, clubbing. 1+ edema of B/L LE
NEURO: Gross non-focal
SKIN: warm, pink, dry. No rash
--- NOTE | 2024-12-11 10:21 | PTCARENOTE ---
received patient this am , monitor shows Afib HR 114, VSS. K 3.2, supplemented as ordered. patient is POTTER, lung streeter crackles through out, lasix IV given as ordered. patient sitting up in chair eating breakfast.
--- NOTE | 2024-12-11 11:14 | CM ---
Chart reviewed. Patient is independent of ADLS, lives with his in a 3 STH, 4STE, 0 DME. Plan is for the patient to return home. CM to follow
--- NOTE | 2024-12-11 11:30 | W.PN.NEPH.PH ---
Today's Communication / Plan
-
continue lasix
Assessment/Plan
-
IMP:
LUCIANA
Afib with RVR s/p CV 12/07
Acute on chronic HFrEF exacerbation
Troponin elevation, non ischemic myocardial injury 2/2 tachycardia
Subclinical hyperthyroidism
mild hyponatremia
Hypokalemia
Essential HTN
HLD
LETICIA on CPAP
Hx of prostate CA s/p TURP
R retinal tear
Plan:
follow BMP
continue diuresis
PVI tomorrow
currently off ACEI/farxiga.
-
-
Date of Service: December 11, 2024
CC / HPI / ROS
-
Chief Complaint:
LUCIANA
History of Present Illness:
LUCIANA/cr slightly better at 1.4
BP stable
diuresing well with IV lasix for decompensated HF still
Afib rapid rate
Review of Systems:
no SOB
no cp
no n/v
Labs
-
Labs:
WBC 9.6 10^3/uL (4.8-10.8) 12/09/24 03:51
RBC 4.34 10^6/uL (4.70-6.10) L 12/09/24 03:51
Hgb 14.1 g/dL (13.0-18.0) 12/09/24 03:51
Hct 40.8 % (39.0-52.0) 12/09/24 03:51
Plt Count 158 10^3/uL (130-400) 12/09/24 03:51
Sodium 137 mmol/L (135-145) 12/11/24 05:07
Potassium 3.2 mmol/L (3.5-5.1) L 12/11/24 05:07
Chloride 101 mmol/L (98-107) 12/11/24 05:07
Carbon Dioxide 26 mmol/L (22-30) 12/11/24 05:07
BUN 51 mg/dl (9-20) H 12/11/24 05:07
Creatinine 1.4 mg/dL (0.7-1.3) H 12/11/24 05:07
eGFR 50.49 12/11/24 05:07
Glucose 89 mg/dl (70-99) 12/11/24 05:07
Calcium 8.3 mg/dl (8.4-10.2) L 12/11/24 05:07
Phosphorus 4.8 mg/dl (2.5-4.5) H 12/05/24 04:09
Apk-T-Triaqbsjazr Pept 61567 pg/ml 12/09/24 03:51
Albumin 4.1 g/dl (3.5-5.0) 12/04/24 23:35
Physical Exam
-
Vital Signs:
Vital Signs
Temp Pulse Resp BP Pulse Ox
97.6 F 111 18 107/83 97
12/11/24 10:59 12/11/24 10:00 12/11/24 10:59 12/11/24 08:30 12/11/24 10:59
Cardiovascular:: Irregular rate and rhythm
Respiratory:: Bilateral: Coarse
Lung Excursion:: Normal
Abdomen:: Nontender and Soft
Bowel Sounds:: Normal
Extremity Edema:: None: Bilateral:
--- NOTE | 2024-12-11 14:56 | W.PN.HOSP.TC ---
Today's Communication/Plan
-
Assessment / Plan
Assessment / Plan
General: No Apparent Distress, Comfortable and Conversant
HEENT: NormoCephalic, Moist mucous membranes, Atraumatic
Respiratory: Clear and Non Labored Respirations
Cardiac: S1/S2 and Regular Rhythm; No Rub or Gallop
GI: Soft, Non Tender, Non Distended and Normal Bowel Sounds
Musculoskeletal: No Edema, no deformity
: NO Rose
Neuro: Awake, Alert, Nonfocal/grossly intact
Psych: Calm and Intact Judgment/Insight
83yo M with PMHX of Afib on Eliquis, HLD, HTN came with episodes of palpitation, diaphoresis and b/l ankle swelling. Was previously scheduled for CV and ablation in Nov. Found CHF exacerbation and afib with RVR. Successful CV done on 12/07/24. Low
threshold for transfer to tertiary center if deteriorates in view of significantly reduced EF. Plan for ablation on 12/12/24 and due to high risk CHF - planned to be done as inpatient
A/P:
#Afib with RVR
#Acute on chronic HFrEF exacerbation
#Troponin elevation, non ischemic myocardial injury 2/2 tachycardia
#Iatrogenic QTc prolongation
Troponin within limits seen on previous admissions - peaked at 0.042
as per echo on 11/27/24 - EF fell to 18% with dilated CM, moderate-severe MR
Lasix 40 mg IV twice daily, daily weight, electrolytes, follow Cr
Cardizem drip discontinued, continue amiodarone 200 mg p.o. twice daily, increase dose of metoprolol succinate to 25 mg p.o. every 6 hours
Cardio following, successful CV on 12/07/24
EP following, plan for ablation on 12/12/24
cont Eliquis
#Subclinical hyperthyroidism
minimal increase of TSH and FT4 overt ULN - will recheck in 1-2 weeks, no indication for medications
#mild leukocytosis
most likely 2/2 CV
- Resolved
follow off Abx
Patient has no GI, urinary or respiratory complains
#LUCIANA
#Hypokalemia
Cr baseline 1.2, improved to 1.4 today
Potassium 3.2 today, repleted with 40 mill equivalents p.o., will monitor
Renal function improving with HR control and Lasix - cardiorenal and tachy-mediated
follow BMP
Nephrology following
US renal unremarkable
#Essential HTN
#HLD
#LETICIA on CPAP
#Hx of prostate CA s/p TURP
#R retinal tear
cont CPAP
cont home meds
DVT ppx Eliquis
Full code
I have spent at least 44 min reviewing chart, test results, communication with consultants and providing direct patient care
Anticipated Discharge: > 48 hours
Subjective/Interval History
-
Date of Service: December 11, 2024
Patient was seen and examined at bedside this morning. Comfortable. Awaiting PVI tomorrow.
Objective Data
-
Labs:
Laboratory Results
12/11/24
05:07
Sodium 137
Potassium 3.2 L
Chloride 101
Carbon Dioxide 26
BUN 51 H
Creatinine 1.4 H
Glucose 89
Calcium 8.3 L
Vital Signs:
Vital Signs
Temp Pulse Resp BP Pulse Ox
97.6 F 124 18 115/74 97
12/11/24 10:59 12/11/24 12:07 12/11/24 10:59 12/11/24 12:07 12/11/24 10:59
I&O
12/10/24 12/11/24 12/12/24
06:59 06:59 06:59
Intake Total 1020 / 1020
Output Total 1375 / 1375 1875 / 1875
Balance -1375 / -1375 -855 / -855
Review of Systems
-
History Source: Patient
All other systems: Reviewed and negative
Physical Exam
-
General: No Apparent Distress
[2024-12-11] MEDS: FLUSH (NSS) 1 FLUSH IV (16:15)
[2024-12-11] MEDS: XANAX 0.25 MG PO (23:06)
--- NOTE | 2024-12-11 23:12 | PTCARENOTE ---
Received patient at change of shift. Afib on the monitor, HR in the 110s. 2L HS. NPO midnight. Groins clipped and CHG clothes as per order. PRN sleep medication administered as per pt request, see MAR. No complaints from pt at this time, call gregorio
within reach.
[2024-12-12] VITALS (16 sets, daily range): BP systolic 97–118; BP diastolic 53–84; BMI 20.5
[2024-12-12] MEDS: LOPRESSOR 25 MG PO (05:31)
[2024-12-12 05:32] LABS: Blood Urea Nitrogen 59 mg/dl (9-20); Calcium 8.3 mg/dl (8.4-10.2); Carbon Dioxide 25 mmol/L (22-30); Chloride 103 mmol/L (98-107); Estimated Creatinine Clearance 36 ml/min; Glucose 86 mg/dl (70-99); Potassium 3.4 mmol/L (3.5-5.1); Sodium 138 mmol/L (135-145); eGFR 46.48
[2024-12-12 05:36] LABS: Hematocrit 43.7 % (39.0-52.0); Hemoglobin 14.7 g/dL (13.0-18.0); Mean Corp Hgb Conc. 33.6 g/dL (33.0-37.0); Mean Corpuscular Volume 94.4 fL (80.0-94.0); Nucleated Red Blood Cells % 0 % (-); Platelet Count 156 10^3/uL (130-400); Red Cell Dist. Width 13.8 % (11.5-14.5)
--- NOTE | 2024-12-12 06:04 | PTCARENOTE ---
Patient with a 10 beat run of VT on the monitor. Asymptomatic. BP 115/70. K 3.4. SLEEP TECHNICIAN Nuno Hedrick made aware. 6 am Lopressor administered. PO K ordered. Pt refusing to take K, stating he is 'fine and will take it after his procedure.' Education about K,
Lasix, and the ablation provided.
[2024-12-12] MEDS: LASIX 40 MG IV (08:25)
[2024-12-12] MEDS: FLUSH (NSS) 1 FLUSH IV (08:25)
[2024-12-12] MEDS: KCL 260 MEQ IV (08:56)
--- NOTE | 2024-12-12 10:12 | PTCARENOTE ---
Patient sent for his ablation at 0900, unable to take PO KCL, notified hospitalist and patient given K+ rider as ordered.
--- NOTE | 2024-12-12 10:54 | CM ---
Chart reviewed. Patient is independent of ADLS, lives with his in a 3 STH, 4 CONTRERAS, 0 DME. Patient is currently getting his PVI. Plan is for the patient to return home. CM to follow
--- NOTE | 2024-12-12 11:21 | ITS.CL.ABL ---
Aviation Electrician - Ablation
Ablation
Procedure Report:
Primary Subpoena Server: Dr Ramiro Burks
Procedure Date: 12/12/2024
Patient History:
Patient is a pleasant 83-year-old male with a past medical history significant for left bundle branch block, hypertension, hyperlipidemia, sleep apnea on CPAP, valvular heart disease, chronic heart failure with preserved ejection fraction with
nonischemic cardiomyopathy secondary to tachycardia, paroxysmal atrial fibrillation, paroxysmal atrial flutter who initially presented due to acute on chronic heart failure with atrial flutter and atrial fibrillation with rapid ventricular response
causing newly reduced LVEF. Patient has undergone extensive diuresis remains in atrial arrhythmia. Patient intolerant to high-dose antiarrhythmic medical therapy.
See H&P for complete details.
Indication:
Symptomatic atrial fibrillation, paroxysmal
Symptomatic typical atrial flutter, paroxysmal
Heart failure with reduced ejection fraction, tachycardia mediated
Arrhythmia Specific History:
Prior Medical Therapies for Rate and Rhythm Control:
X Beta-myron
[ ] Calcium channel-myron
X Amiodarone
[ ] Dronederone
[ ] Sotalol
[ ] Flecainide
[ ] Dofetilide
X Options limited by bradycardia
X Options limited by comorbid renal disease
Prior Procedural Therapies for AF/AFL:
X Cardioversion
X Pulmonary Vein Isolation - MDT Pulse Select 10/2023
[ ] Posterior Wall Isolation
[ ] Additional lines (Specify)
[ ] Surgical Valerio-MAZE or PVI (Specify)
Procedure Performed:
X AF ablation procedure (34198) -- includes LA/CS pacing, trans-septal, 3D mapping, + ICE -- re-isolation of pulmonary veins
[ ] +IV drug (70075)
X +Other Arrhythmia (11553) -- CTI RFA for typical flutter
X +Other AF Line/ablation (98659) x2 -- floor line, roof line, posterior wall isolation
Risks and expected recovery has been explained in detail. Alternative options have been explored, and in a shared-decision making fashion we have decided that this was the most appropriate procedure.
Method
NPO status confirmed. Grounding pad applied. Defibrillator pads applied. Continuous surface ECG, pulse oximetry, and blood pressure were monitored. Procedure was performed under general anesthesia, with anesthesia services.
Both groins were clipped, prepped with Chloraprep, and draped in sterile fashion. Time out was called. Local anesthesia administered with bupivacaine. The right [and left femoral vein were]femoral vein was accessed for catheter placement, using
ultrasound guidance (images saved to record), micro-puncture needle/wire, and modified seldinger technique. [ ] sheaths were placed. The following catheters were used:
X TactiFlex SE (D/F Curve) ablation catheter
X Viewflex 9Fr ICE catheter
X Inquiry decapolar 6Fr diagnostic catheter
[ ] CRD Hex 6Fr
X Agilis 11.5 Fr Steerable Sheath
X FlexCath Contour 10 Fr with PulseSelect PFA Catheter
X Advisor HD Grid Mapping Catheter, SE
[ ] Acuson AcuNav 8 Fr ICE catheter
[ ] Other: [ ]
A multipolar catheter were advanced to the coronary sinus. Intracardiac ultrasound (ICE) was carefully advanced into the right atrium to guide sheath placement over a J-wire, catheter placement, guide trans-septal puncture, identify potential
complications, identify anatomic structures and ensure proper contact between ablation catheter and tissue. A EVARISTO was not performed prior to procedure. Patient has maintained anticoagulation during hospitalization and additionally has undergone
EVARISTO/DCCV while hospitalized which did not demonstrate any left atrial appendage thrombus. Intracardiac ultrasound did not demonstrate any thrombus in the left atrial appendage. No evidence of pericardial effusion was noted at the initiation of
case, throughout procedure, and at case completion. A pleural effusion was noted.
Heparin was given to achieve and maintain a target ACT of 300-400 seconds throughout the procedure.
Patient entered the room in atrial fibrillation. 200 J synchronized DCCV was performed for zoroastrianism of sinus rhythm. Patient remained in sinus rhythm throughout the remainder of the procedure. The Tactiflex ablation catheter (through long
steerable sheath was used to map, record, pace, and ablate.) Three-dimensional electroanatomic mapping was utilized with careful attention to anatomic landmarks, including the coronary sinus, IVC-RA and SVC-RA junction, tricuspid valve annulus, and
region of the His bundle electrogram. Clockwise and counterclockwise trans-isthmus times were determined. An ablation line was created from the tricuspid annulus to the IVC in the 6:00 position (LYNNE clock/caudal EAM projection). RF was used with
careful monitoring of impedance, AV conduction, power, and temperature. Ablation continued until a line was complete from the tricuspid valve annulus to the IVC-RA junction during CS pacing. Clockwise and counterclockwise trans-isthmus times were
determined, and RA activation patterns confirmed bidirectional block.
Next, we turned our attention to the AF Ablation.
Trans-septal access was performed under ICE guidance. The trans-septal puncture was performed with a SafeSept wire through a Brockenbrough needle assembly through the steerable sheath. The wire was visualized as it entered the LSPV and system
advanced under ICE guidance and fluoroscopy into the LA. The Brockenbrough needle assembly, SafeSept wire and sheath dilator were removed under negative pressure. LA pressure was measured and recorded.
ICE and 3D mapping was performed to identify relevant cardiac structures. A careful 3D map was created to assess for regions of low-voltage and abnormal electrogram signals using HD grid mapping catheter and PulseSelect catheter. Additional mapping
was performed as outlined below.
Prior to ablation, glycopyrrolate was provided. PulseSelect catheter was advanced over J-wire to the ostium of each vein. Pulmonary vein isolation was performed with ostial and antral lesions in a circumferential manner. Contact was visualized via
EAM, ICE, fluoroscopy, and EGM signals.
Reconnection was noted at the left superior pulmonary vein with fractionated entrance signal near right superior pulmonary vein. The left and right inferior pulmonary veins remained isolated. After accomplishing pulmonary venous isolation, mapping
identified additional areas likely to be extra PV contributors to atrial fibrillation. These areas demonstrated patchy low voltage as well as complex fractionated electrograms. These areas can be sites for the formation of rotors which can drive
and maintain atrial fibrillation. These areas are known to be significant contributors to initiation and perpetuation of atrial fibrillation.
Additional energy applications/additional ablation sets targeted extra PV contributors to atrial fibrillation.
Targets for additional PFA ablation included: LA posterior wall targeted with pulsed electric field energy isolating the posterior wall of the left atrium. Posterior wall isolation was performed by anchoring the J-wire within the pulmonary vein and
placing the PulseSelect catheter in contact posterior wall as visualized by aforementioned methods.
After ablation of the posterior wall, targets remained including:
- Inferior LA floor
- Anterior LA roof
- The ridge of tissue between the left atrial appendage and the left sided pulmonary veins (Ligament of Julián)
These areas were ablated using pulsed electric field energy eliminating the extra PV contributors to atrial fibrillation.
Following completion of ablation lesions, a post-ablation voltage/activation map was performed in sinus rhythm. Entrance and exit block were confirmed for each vein and the posterior wall.
Catheter and sheath were removed from the left atrium and post-ablation intracardiac echo evaluation was consistent with pre-ablation with no changes and no pericardial effusion and there is no left atrial thrombus or left ventricle thrombus seen.
Electrophysiology study was performed. Hemostasis was obtained with figure of 8 stitch for each groin and with manual pressure. Protamine was used for reversal.
Estimated Blood Loss
5 mL
Complications
None
Fluoroscopy: 8.4 minutes; 22.19 mGy; DAP 3.09
LA Pressure: Pre 36 mmHg, post 35 mmHg
Baseline Intervals:
Rhythm: AF
QRS: 154 ms
QT: 394 ms
Post-Procedure Intervals:
SC: 174 ms
QRS: 150 ms
QT: 424 ms
QTc: 515 ms
AVWB: 360 ms
AVERP/AERP: 600/300 ms
Recommendations
- Bedrest with straight-leg precautions as ordered
- Return to patient room
- Resume home medications as indicated
- Ok to resume anticoagulation tonight if patient and groin sites stable
- Resume beta-myron; restart amiodarone at 100 mg daily
- IV diuresis
Trey Diego DO, FACC, FHRS
Clinical Cardiac Interior Design Consultant
cc: Dr Gaxiola; Dr Burks
[2024-12-12 13:07] LABS: ACT-LR - POC 376 Seconds (116-155)
[2024-12-12 13:24] LABS: ACT-LR - POC 331 Seconds (116-155)
[2024-12-12 13:50] LABS: ACT-LR - POC 356 Seconds (116-155)
[2024-12-12 14:04] LABS: ACT-LR - POC 321 Seconds (116-155)
[2024-12-12 14:53] LABS: ACT-LR - POC 174 Seconds (116-155)
[2024-12-12 15:13] LABS: ACT-LR - POC > 397 Seconds (116-155)
--- NOTE | 2024-12-12 16:09 | W.PN.UPDATE ---
Update Note
Progress Note Update
Attempted to see pt but not in room
stbale renal function
will see him tomorrow
--- NOTE | 2024-12-12 16:42 | PTCARENOTE ---
Received patient from PACU at 1625 after AF ablation via right and left femoral veins. Patient lying flat in bed with the bed tilted. Bilateral groin dressings are soft with no signs of bleeding or hematoma. DP pulses are palpable, monitoring VS as
per protocol. Patient is aware of activity restrictions, taking ice chips with assistance, call gregorio in reach. SR on the monitor with BBB.
[2024-12-12] MEDS: LOPRESSOR PO (17:07)
[2024-12-12] MEDS: LASIX IV (17:07)
--- NOTE | 2024-12-12 17:13 | W.PN.HOSP.TC ---
Today's Communication/Plan
-
Assessment / Plan
Assessment / Plan
General: No Apparent Distress, Comfortable and Conversant
HEENT: NormoCephalic, Moist mucous membranes, Atraumatic
Respiratory: Clear and Non Labored Respirations
Cardiac: S1/S2 and Regular Rhythm; No Rub or Gallop
GI: Soft, Non Tender, Non Distended and Normal Bowel Sounds
Musculoskeletal: No Edema, no deformity
: NO Rose
Neuro: Awake, Alert, Nonfocal/grossly intact
Psych: Calm and Intact Judgment/Insight
83yo M with PMHX of Afib on Eliquis, HLD, HTN came with episodes of palpitation, diaphoresis and b/l ankle swelling. Was previously scheduled for CV and ablation in Nov. Found CHF exacerbation and afib with RVR. Successful CV done on 12/07/24. Low
threshold for transfer to tertiary center if deteriorates in view of significantly reduced EF. Plan for ablation on 12/12/24 and due to high risk CHF - planned to be done as inpatient
A/P:
#Afib with RVR
#Acute on chronic HFrEF exacerbation
#Troponin elevation, non ischemic myocardial injury 2/2 tachycardia
#Iatrogenic QTc prolongation
Troponin within limits seen on previous admissions - peaked at 0.042, doubt acute ischemia
as per echo on 11/27/24 - EF fell to 18% with dilated CM, moderate-severe MR
Lasix 80 mg IV twice daily, daily weight, electrolytes, follow Cr
Status post PVI today 12/12 with electrophysiology, tolerated procedure well, okay to restart Eliquis tonight if groin access sites are stable
Continue amiodarone at reduced dose of 100 mg p.o. daily, dose of metoprolol succinate to 25 mg p.o. twice daily currently on hold
#Subclinical hyperthyroidism
minimal increase of TSH and FT4 overt ULN - will recheck in 1-2 weeks, no indication for medications
#mild leukocytosis
most likely 2/2 CV
- Resolved
follow off Abx
Patient has no GI, urinary or respiratory complains
#LUCIANA
#Hypokalemia
Cr baseline 1.2, was 1.5 today
Potassium 3.4 today, repleted with 20 mill equivalents IV, will monitor
follow BMP
Nephrology following
US renal unremarkable
#Essential HTN
#HLD
#LETICIA on CPAP
#Hx of prostate CA s/p TURP
#R retinal tear
cont CPAP
cont home meds
DVT ppx Eliquis
Full code
I have spent at least 54 min reviewing chart, test results, communication with consultants and providing direct patient care
Anticipated Discharge: 24 - 48 hours
Subjective/Interval History
-
Date of Service: December 12, 2024
Patient was seen and examined today following pulmonary vein isolation procedure bilateral physiology. Tolerated procedure well.
Objective Data
-
Labs:
Laboratory Results
12/12/24
04:15
WBC 8.6
Hgb 14.7
Hct 43.7
Plt Count 156
Sodium 138
Potassium 3.4 L
Chloride 103
Carbon Dioxide 25
BUN 59 H
Creatinine 1.5 H
Glucose 86
Calcium 8.3 L
Vital Signs:
Vital Signs
Temp Pulse Resp BP Pulse Ox
97.6 F 69 18 111/58 98
12/12/24 16:37 12/12/24 16:37 12/12/24 16:37 12/12/24 16:21 12/12/24 16:37
I&O
12/11/24 12/12/24 12/13/24
06:59 06:59 06:59
Intake Total 1020 / 1020 1750 / 1750
Output Total 1875 / 1875 350 / 350 1025 / 1025
Balance -855 / -855 -350 / -350 722 / 722
Review of Systems
-
History Source: Patient
All other systems: Reviewed and negative
Physical Exam
-
General: No Apparent Distress
[2024-12-12] MEDS: LASIX 80 MG IV (18:30)
[2024-12-12] MEDS: LIPITOR 20 MG PO (18:30)
[2024-12-12] MEDS: ELIQUIS 5 MG PO (20:50)
[2024-12-12] MEDS: TOPROL XL 25 MG PO (20:51)
--- NOTE | 2024-12-12 21:47 | PTCARENOTE ---
Received patient at change of shift. SR with a BBB on the monitor, HR in the 70s. Bilateral groin figure 8s clipped as per order, see documentation. Bilateral groin dressings CDI, soft. No complaints from pt at this time, call gregorio within reach.
[2024-12-12] MEDS: XANAX 0.25 MG PO (22:26)
[2024-12-13] VITALS (10 sets, daily range): BP systolic 96–115; BP diastolic 54–69; BMI 20.8
[2024-12-13 02:43] LABS: Hematocrit 37.9 % (39.0-52.0); Hemoglobin 13.0 g/dL (13.0-18.0); Mean Corp Hgb Conc. 34.3 g/dL (33.0-37.0); Mean Corpuscular Volume 92.4 fL (80.0-94.0); Platelet Count 132 10^3/uL (130-400); Red Cell Dist. Width 13.9 % (11.5-14.5)
[2024-12-13 03:10] LABS: Blood Urea Nitrogen 69 mg/dl (9-20); Calcium 7.5 mg/dl (8.4-10.2); Carbon Dioxide 25 mmol/L (22-30); Chloride 106 mmol/L (98-107); Estimated Creatinine Clearance 27 ml/min; Glucose 133 mg/dl (70-99); Magnesium 2.2 mg/dl (1.6-2.3); Potassium 3.4 mmol/L (3.5-5.1); Sodium 138 mmol/L (135-145); eGFR 32.91
[2024-12-13] MEDS: KCL 270 MEQ IV (03:57)
--- NOTE | 2024-12-13 04:12 | PTCARENOTE ---
Patients morning EKG showed a QTc of 587, compared to his last EKG of 511. REHAB PHYSICIAN Thi Perales made aware. K 3.4, IV K ordered and administered as per REHAB PHYSICIAN.
[2024-12-13] MEDS: LASIX IV ×2 (09:00→17:17)
[2024-12-13] MEDS: TOPROL XL 25 MG PO ×2 (09:50→19:37)
[2024-12-13] MEDS: ELIQUIS 5 MG PO ×2 (09:51→19:37)
[2024-12-13] MEDS: PACERONE 100 MG PO (09:51)
[2024-12-13] MEDS: FLUSH (NSS) 1 FLUSH IV (09:51)
[2024-12-13] MEDS: LIPITOR 20 MG PO (09:51)
--- NOTE | 2024-12-13 10:01 | PTCARENOTE ---
Patient assisted oob this morning with RW, is weak and instructed to request help when getting oob. Bilateral groin dressings are dry and intact. Sent for U/L of lungs, POTTER. Due for IV lasix, creatinine elevated and med held pending results of u/s
and cardiology's input, spoke with Raegan FIGUEROA re: plan.
--- NOTE | 2024-12-13 11:25 | CM ---
Chart reviewed. Patient is independent of ADLS, lives with his in a [address], 4 [address]ER[address], 0 DME. Plan is for the patient to return home. CM to follow
--- NOTE | 2024-12-13 11:26 | W.PN.CARDCBS ---
Addendum entered and electronically signed by Gordon Lindquist MD 12/13/24 18:16:
I saw and examined the patient.
The Drafter Assistant's note was reviewed and I agree with the note.
Comment:
GEN: No distress, awake, Ox3
HEENT: supple, anicteric, mmm
LUNGS: CTA, no wheezes/rales
CV: Reg, S1/S2, 1/6 syst LSB, S3+
ABD: soft, BS+, NT/ND
EXT: trace edema
NEURO: Gross non-focal
SKIN: No rash
Plan:
In sinus rhythm today. Creatinine up to 2.0. Will give Lasix 40 mg IV x 1 tonight and reassess in AM.
Unable to proceed with thoracentesis today but would pursue this tomorrow. Hopefully kidney function improves. He remains volume overloaded.
Continue low-dose amiodarone. Follow QT interval.
Will repeat echo in a.m. to reevaluate his LVEF and mitral regurgitation.
Original Note:
Today's Communication / Plan
-
Holding Lasix
Follow creatinine
Chest ultrasound with moderate bilateral pleural effusions
IRAD consult for thoracentesis
In sinus rhythm. Follow QTc
Attempt to continue low-dose Amio
Repeat echo in a.m.
Impression / Plan
-
PCP: Dr. Gaxiola
Primary Process Engineer: Dr. Burks
Impression:
Acute on chronic HFrEF
Paroxysmal atrial tachycardia vs atypical aflutter with RVR
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
Admission to [facility] for atach with RVR, CHF and successful CV 11/26/24 until 11/29/24
Paroxysmal A-fib/typical atrial flutter
s/p PVI 10/2023
s/p successful EVARISTO/CV 01/26/24
s/p successful CV 11/28/24
s/p successful CV 12/07/2024
Chronic Eliquis OAC
Junctional rhythm seen on ECG following CV 12/07/2024
Chronic HFpEF
Improved CM, EF as low as 35% by EVARISTO 01/26/2024 and improved to 50% by echo 10/08/2024
Moderate MR by echo 10/08/2024
Mild to moderate aortic regurgitation
Chronic LBBB
h/o sinus bradycardia
History of vasovagal syncope
HTN
HLD
LETICIA on CPAP
prostate cancer s/p prostatectomy
Retinal tear of R eye
Lexiscan nuclear stress test 06/07/2022: Fixed defect in basal inferolateral, basal inferior, basal inferoseptal, mid inferior and apical inferior segments consistent with infarction with superimposed soft tissue attenuation, fixed defect in mid
anteroseptal defect consistent with infarction, EF 45%
Echo 08/2022: EF 55%, abnormal paradoxical septal motion consistent with left bundle branch block, mild concentric LVH, severely dilated LA, moderate MR, mild to moderate AR, mild TR, PAP 43 mmHg, trivial pericardial effusion
EVARISTO 01/26/2024: Global hypokinesis with regional variation, abnormal septal motion consistent with left bundle branch block, EF 35%, no thrombus detected in MENDEZ, moderate central MR, mild to moderate eccentric AR
Echo 10/08/2024: EF 50%, moderate MR, mild to moderate aortic regurgitation
Echo 11/27/2024: EF 18%, bilateral atrial dilatation, mild to moderate AI, moderate to severe MR with very eccentric jet directed toward free wall, mild TR, PAP 46 mmHg
Plan:
-Patient was admitted with recurrent atrial arrhythmia on 12/05/2024. Patient with a history of tachycardia mediated CM and this is his second admission in 2 weeks for recurrent atrial arrhythmia.
-Patient had another successful CV on 12/07/2024 and on ECG postprocedure there was SR with competing junctional rhythm, Cardizem gtt that had been running up until CV was stopped. recurred with atach 10/7PM
-s/p PVI/ACUTE CARE CERTIFIED NURSING ASSISTANT/floor line/roof line/posterior wall isolation 12/13/24
-overall feeling well this morning
-in mostly SR overnight, 1 brief run of NSVT. replete K
-continue toprol 25mg BID and amiodarone 100mg daily. QTc prolonged by EKG this AM, follow
-B/L groin sites not causing patient discomfort
-continue eliquis 5mg BID. hgb 13
-at time of procedure was noted to remain grossly volume overloaded. post procedure was given extra dose of IV lasix and standing dose was increased to 80mg IV BID.
-Cr up to 2 this morning. IV lasix on hold. chest US ordered by me shows mod B/L pleural effusions. IRAD consulted by me. plan for thoracentesis today (one side today and the other side tomorrow?)
-EF 18% by echo 11/27/2024, will repeat echo in AM to reeval EF in SR
-continue toprol. MINE/ARB/ARNI/aldosterone antagonist/SGLT2 are on hold with LUCIANA on CKD
-There is evidence of moderate to severe MR by echo 11/27/2024, will continue to follow
-patient is hoping for DC to home on Tuesday
-Discussed with nursing
Progress Note - Process Engineer
Subjective
Date of Service: December 13, 2024
reports feeling improved today, but weak. denies groin pain. eager for DC to home
Objective
Labs:
12/13/24 02:35
12/13/24 02:35
Labs
Hgb 13.0 g/dL (13.0-18.0) 12/13/24 02:35
Hct 37.9 % (39.0-52.0) L 12/13/24 02:35
Plt Count 132 10^3/uL (130-400) 12/13/24 02:35
APTT Cancelled 12/05/24 16:00
Sodium 138 mmol/L (135-145) 12/13/24 02:35
Potassium 3.4 mmol/L (3.5-5.1) L 12/13/24 02:35
BUN 69 mg/dl (9-20) H 12/13/24 02:35
Creatinine 2.0 mg/dL (0.7-1.3) H 12/13/24 02:35
Glucose 133 mg/dl (70-99) H 12/13/24 02:35
Vital Signs and I&O:
Vital Signs
Temp Pulse Resp BP Pulse Ox
97.4 F 60 20 99/57 93
12/13/24 07:45 12/13/24 09:50 12/13/24 07:45 12/13/24 09:50 12/13/24 07:45
Vital Signs
Temp Pulse Resp BP Pulse Ox
97.4 F 60 20 99/57 93
12/13/24 07:45 12/13/24 09:50 12/13/24 07:45 12/13/24 09:50 12/13/24 07:45
Intake & Output
12/11/24 12/12/24 12/13/24 12/14/24
07:59 07:59 07:59 07:59
Intake Total 1020 / 1020 1750 / 1750
Output Total 1875 / 1875 350 / 350 1425 / 1425
Balance -855 / -855 -350 / -350 325 / 325
Physical Exam
Physical Exam
GEN: No distress, awake, alert, oriented x3. Sitting in chair
HEENT: supple, anicteric, mmm, EOMI
LUNGS: Decreased at B/L bases, no wheezes
CV: Reg, S1/S2, 1/6 murmur
ABD: soft, BS+, NT/ND
EXT: No cyanosis, clubbing. Trace edema of bilateral lower extremity
NEURO: Gross non-focal
SKIN: Warm, pink, dry. No rash
--- NOTE | 2024-12-13 12:12 | W.PN.NEPH.PH ---
Today's Communication / Plan
-
follow labs , if cr cont to rise likely hold lasix
Assessment/Plan
-
IMP:
LUCIANA
Afib with RVR s/p CV 12/07
Acute on chronic HFrEF exacerbation
Troponin elevation, non ischemic myocardial injury 2/2 tachycardia
Subclinical hyperthyroidism
mild hyponatremia
Hypokalemia
Essential HTN
HLD
LETICIA on CPAP
Hx of prostate CA s/p TURP
R retinal tear
Plan:
LUCIANA-cr is up today possible CRS and higher dose diuretics
he is s/p ablation on 12/12
continue diuresis per cards, still with sig edema and wt is up
for possible thoracentesis , US shows bilat mod pleural effusion
Bp remain soft
reaplce k
currently off ACEI/farxiga.
-
-
Date of Service: December 13, 2024
CC / HPI / ROS
-
Chief Complaint:
LUCIANA
History of Present Illness:
LUCIANA/cr up at 2, k low 3.4
BP stable
diuresing well with IV lasix for decompensated HF still
s/p PVI on 12/12 in sinus now
Review of Systems:
no SOB at rest
no cp
no n/v
Labs
-
Labs:
WBC 7.0 10^3/uL (4.8-10.8) 12/13/24 02:35
RBC 4.10 10^6/uL (4.70-6.10) L 12/13/24 02:35
Hgb 13.0 g/dL (13.0-18.0) 12/13/24 02:35
Hct 37.9 % (39.0-52.0) L 12/13/24 02:35
Plt Count 132 10^3/uL (130-400) 12/13/24 02:35
Sodium 138 mmol/L (135-145) 12/13/24 02:35
Potassium 3.4 mmol/L (3.5-5.1) L 12/13/24 02:35
Chloride 106 mmol/L (98-107) 12/13/24 02:35
Carbon Dioxide 25 mmol/L (22-30) 12/13/24 02:35
BUN 69 mg/dl (9-20) H 12/13/24 02:35
Creatinine 2.0 mg/dL (0.7-1.3) H 12/13/24 02:35
eGFR 32.91 12/13/24 02:35
Glucose 133 mg/dl (70-99) H 12/13/24 02:35
Calcium 7.5 mg/dl (8.4-10.2) L 12/13/24 02:35
Phosphorus 4.8 mg/dl (2.5-4.5) H 12/05/24 04:09
[id number] Pept 58634 pg/ml 12/09/24 03:51
Albumin 4.1 g/dl (3.5-5.0) 12/04/24 23:35
Physical Exam
-
Vital Signs:
Vital Signs
Temp Pulse Resp BP Pulse Ox
97.4 F 60 20 99/57 94
12/13/24 11:33 12/13/24 09:50 12/13/24 11:33 12/13/24 09:50 12/13/24 11:33
Cardiovascular:: Irregular rate and rhythm
Respiratory:: Bilateral: Coarse
Lung Excursion:: Normal
Abdomen:: Nontender and Soft
Bowel Sounds:: Normal
Extremity Edema:: +1: Bilateral: (left>right)
Rose Catheter: No
--- NOTE | 2024-12-13 15:03 | W.PN.HOSP.TC ---
Today's Communication/Plan
-
Assessment / Plan
Assessment / Plan
General: No Apparent Distress, Comfortable and Conversant
HEENT: NormoCephalic, Moist mucous membranes, Atraumatic
Respiratory: No wheezing or rhonchi, Non Labored Respirations
Cardiac: Regular rhythm, heart rate controlled around 70
GI: Soft, Non Tender, Non Distended and Normal Bowel Sounds
Musculoskeletal: Mild bilateral lower extremity edema, no deformity
: NO Rose
Neuro: Awake, Alert, Nonfocal/grossly intact
Psych: Calm and Intact Judgment/Insight
83yo M with PMHX of Afib on Eliquis, HLD, HTN came with episodes of palpitation, diaphoresis and b/l ankle swelling. Was previously scheduled for CV and ablation in Nov. Found CHF exacerbation and afib with RVR. Successful CV done on 12/07/24. Low
threshold for transfer to tertiary center if deteriorates in view of significantly reduced EF. Plan for ablation on 12/12/24 and due to high risk CHF - planned to be done as inpatient
A/P:
#Afib with RVR
#Acute on chronic HFrEF exacerbation
#Troponin elevation, non ischemic myocardial injury 2/2 tachycardia
#Iatrogenic QTc prolongation
- Troponin within limits seen on previous admissions - peaked at 0.042, doubt acute ischemia
- echo on 11/27/24 - EF fell to 18% with dilated CM, moderate-severe MR
- Status post PVI yesterday 12/12 electrophysiology, tolerated procedure well, currently in sinus rhythm with controlled heart rate, restarted Eliquis postprocedure
- Continuing amiodarone at 100 mg p.o. daily and metoprolol succinate at 25 mg p.o. twice daily
- Thoracic echo today shows moderate bilateral pleural effusions, continuing aggressive IV diuresis currently with Lasix 80 mg IV twice daily, IR consulted for thoracentesis
#LUCIANA
#Hypokalemia
Cr baseline 1.2, renal function worse today with creatinine of 2.0
Potassium 3.4 today, repleted
Nephrology following, continuing diuresis for now and monitor renal function
US renal unremarkable
#Subclinical hyperthyroidism
minimal increase of TSH and FT4 overt ULN - will recheck in 1-2 weeks, no indication for medications
#mild leukocytosis
most likely 2/2 CV
- Resolved
follow off Abx
Patient has no GI, urinary or respiratory complains
#Essential HTN
#HLD
#LETICIA on CPAP
#Hx of prostate CA s/p TURP
#R retinal tear
cont CPAP
cont home meds
DVT ppx Eliquis
Full code
I have spent at least 52 min reviewing chart, test results, communication with consultants and providing direct patient care
Anticipated Discharge: 24 - 48 hours
Subjective/Interval History
-
Date of Service: December 13, 2024
Patient was seen and examined at bedside this morning. Feeling well after PVI yesterday.
Objective Data
-
Labs:
Laboratory Results
12/13/24
02:35
Sodium 138
Potassium 3.4 L
Chloride 106
Carbon Dioxide 25
BUN 69 H
Creatinine 2.0 H
Glucose 133 H
Calcium 7.5 L
Vital Signs:
Vital Signs
Temp Pulse Resp BP Pulse Ox
97.4 F 56 20 96/57 94
12/13/24 11:33 12/13/24 12:00 12/13/24 11:33 12/13/24 11:32 12/13/24 11:33
I&O
12/12/24 12/13/24 12/14/24
06:59 06:59 06:59
Intake Total 1750 / 1750 360 / 360
Output Total 350 / 350 1425 / 1425
Balance -350 / -350 325 / 325 360 / 360
Review of Systems
-
History Source: Patient
All other systems: Reviewed and negative
Physical Exam
-
General: No Apparent Distress
[2024-12-13] MEDS: LASIX 40 MG IV (18:43)
--- NOTE | 2024-12-13 20:57 | PTCARENOTE ---
Patient received at change of shift out of bed to the chair. The patient offers no complaints at this time. Sinus rhythm with BBB and prolonged QT on telemetry. Oxygen saturation 96% on room air. Plan of care discussed. Call gregorio within reach. Care
ongoing.
[2024-12-13 22:20] LABS: Total Protein 5.2 g/dl (6.3-8.2)
[2024-12-13 22:31] LABS: LDH 1101 U/L (120-246)
[2024-12-13] MEDS: XANAX 0.25 MG PO (23:12)
[2024-12-14] VITALS (10 sets, daily range): BP systolic 62–107; BP diastolic 49–65; BMI 20.7
[2024-12-14 05:19] LABS: Blood Urea Nitrogen 76 mg/dl (9-20); Calcium 7.9 mg/dl (8.4-10.2); Carbon Dioxide 23 mmol/L (22-30); Chloride 107 mmol/L (98-107); Estimated Creatinine Clearance 26 ml/min; Glucose 110 mg/dl (70-99); Potassium 3.5 mmol/L (3.5-5.1); Sodium 140 mmol/L (135-145); eGFR 31.04
[2024-12-14] MEDS: TOPROL XL 25 MG PO ×2 (07:28→20:21)
[2024-12-14] MEDS: PACERONE 100 MG PO (07:28)
[2024-12-14] MEDS: ELIQUIS 5 MG PO ×2 (07:28→20:21)
[2024-12-14] MEDS: LIPITOR 20 MG PO (07:29)
--- NOTE | 2024-12-14 10:38 | CM ---
Reviewed chart. Met with Mr. Lozada to review discharge plans. He states he is feeling better. We reviewed [facility] with him.. At this time he is declining [facility] Services. He states he has been ambulating with a rolling walker here. He states he
has a rolling walker at home. Prior to admission he resides with his spouse in a three story home with four steps to enter. He has a full flight of steps to get to bedroom/full bathroom. He has a powder room on the first floor. Prior to admission
he was independent with ambulation and adls. He has a CPAP Machine and rolling walker at home. He does not have a prescription plan and uses a [employer] discount card. He has never had [facility]NA Services. Will need to see his current functional level
to see if he will have any skilled care needs. Medical work-up in progress. The discharge plan is to return home with his spouse when medically stable.
--- NOTE | 2024-12-14 12:45 | W.PN.NEPH.PH ---
Today's Communication / Plan
-
hold lasix today
Assessment/Plan
-
IMP:
LUCIANA
Afib with RVR s/p CV 12/07
Acute on chronic HFrEF exacerbation
Troponin elevation, non ischemic myocardial injury 2/2 tachycardia
Subclinical hyperthyroidism
mild hyponatremia
Hypokalemia
Essential HTN
HLD
LETICIA on CPAP
Hx of prostate CA s/p TURP
R retinal tear
Plan:
LUCIANA likely from PVI with hypotension/contrast
follow BMP
hold lasix today
possible left thoracentesis tomorrow
-
-
Date of Service: December 14, 2024
CC / HPI / ROS
-
Chief Complaint:
LUCIANA
History of Present Illness:
LUCIANA/cr up at 2.1
BP stable
diuresing well with IV lasix for decompensated HF
s/p right thoracentesis >1L
s/p PVI on 12/12 in sinus now
Review of Systems:
no SOB at rest
no cp
no n/v
Labs
-
Labs:
WBC 7.0 10^3/uL (4.8-10.8) 12/13/24 02:35
RBC 4.10 10^6/uL (4.70-6.10) L 12/13/24 02:35
Hgb 13.0 g/dL (13.0-18.0) 12/13/24 02:35
Hct 37.9 % (39.0-52.0) L 12/13/24 02:35
Plt Count 132 10^3/uL (130-400) 12/13/24 02:35
Sodium 140 mmol/L (135-145) 12/14/24 04:22
Potassium 3.5 mmol/L (3.5-5.1) 12/14/24 04:22
Chloride 107 mmol/L (98-107) 12/14/24 04:22
Carbon Dioxide 23 mmol/L (22-30) 12/14/24 04:22
BUN 76 mg/dl (9-20) H 12/14/24 04:22
Creatinine 2.1 mg/dL (0.7-1.3) H 12/14/24 04:22
eGFR 31.04 12/14/24 04:22
Glucose 110 mg/dl (70-99) H 12/14/24 04:22
Calcium 7.9 mg/dl (8.4-10.2) L 12/14/24 04:22
Phosphorus 4.8 mg/dl (2.5-4.5) H 12/05/24 04:09
Kgz-G-Hrvhbkckfsl Pept 42380 pg/ml 12/14/24 04:22
Albumin 4.1 g/dl (3.5-5.0) 12/04/24 23:35
Physical Exam
-
Vital Signs:
Vital Signs
Temp Pulse Resp BP Pulse Ox
97.3 F 62 20 102/57 99
12/14/24 11:16 12/14/24 08:35 12/14/24 11:16 12/14/24 08:35 12/14/24 11:16
Cardiovascular:: Regular rate and rhythm
Respiratory:: Bilateral: Coarse
Lung Excursion:: Normal
Abdomen:: Nontender and Soft
Bowel Sounds:: Normal
Extremity Edema:: +1: Bilateral:
--- NOTE | 2024-12-14 13:09 | W.PN.CARDCBS ---
Today's Communication / Plan
-
IV diuresis, nephrotoxic agents on hold; monitor renal function
Thoracentesis
Remains in sinus rhythm, continue beta-myron, amiodarone with Daily EKGs
Impression / Plan
-
PCP: Dr. Gaxiola
Primary Instructional Systems Specialist: Dr. Burks
Impression:
Acute on chronic HFrEF, improving
Paroxysmal atrial tachycardia vs atypical aflutter with RVR
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
Admission to [facility] for atach with RVR, CHF and successful CV 11/26/24 until 11/29/24
Paroxysmal A-fib/typical atrial flutter
s/p PVI 10/2023
s/p successful EVARISTO/CV 01/26/24
s/p successful CV 11/28/24
s/p successful CV 12/07/2024
Status post PFA PVI/PWI, CTI RFA 12/12/2024
Chronic Eliquis OAC
Junctional rhythm seen on ECG following CV 12/07/2024
Chronic HFpEF
Improved CM, EF as low as 35% by EVARISTO 01/26/2024 and improved to 50% by echo 10/08/2024
Moderate MR by echo 10/08/2024
Mild to moderate aortic regurgitation
Chronic LBBB
h/o sinus bradycardia
History of vasovagal syncope
HTN
HLD
LETICIA on CPAP
prostate cancer s/p prostatectomy
Retinal tear of R eye
Lexiscan nuclear stress test 06/07/2022: Fixed defect in basal inferolateral, basal inferior, basal inferoseptal, mid inferior and apical inferior segments consistent with infarction with superimposed soft tissue attenuation, fixed defect in mid
anteroseptal defect consistent with infarction, EF 45%
Echo 08/2022: EF 55%, abnormal paradoxical septal motion consistent with left bundle branch block, mild concentric LVH, severely dilated LA, moderate MR, mild to moderate AR, mild TR, PAP 43 mmHg, trivial pericardial effusion
EVARISTO 01/26/2024: Global hypokinesis with regional variation, abnormal septal motion consistent with left bundle branch block, EF 35%, no thrombus detected in MENDEZ, moderate central MR, mild to moderate eccentric AR
Echo 10/08/2024: EF 50%, moderate MR, mild to moderate aortic regurgitation
Echo 11/27/2024: EF 18%, bilateral atrial dilatation, mild to moderate AI, moderate to severe MR with very eccentric jet directed toward free wall, mild TR, PAP 46 mmHg
Plan:
-Patient was admitted with recurrent atrial arrhythmia on 12/05/2024. Patient with a history of tachycardia mediated CM and this is his second admission in 2 weeks for recurrent atrial arrhythmia.
-Patient had another successful CV on 12/07/2024 and on ECG postprocedure there was SR with competing junctional rhythm, Cardizem gtt that had been running up until CV was stopped. recurred with atach 7PM
-s/p PVI/DAMPPROOFER/floor line/roof line/posterior wall isolation 12/13/24
-overall feeling well this morning, planning for thoracentesis likely benefit from bilateral
-continue toprol 25mg BID and amiodarone 100mg daily. QTc prolonged by EKG this AM, follow
-B/L groin sites not causing patient discomfort
-continue eliquis 5mg BID. hgb 13
-Cr up to 2.1 this morning. IV lasix on hold, nephrology following, monitor renal function
-EF 18% by echo 11/27/2024, will repeat echo reeval EF in SR
-continue toprol. MINE/ARB/ARNI/aldosterone antagonist/SGLT2 are on hold with LUCIANA on CKD
-There is evidence of moderate to severe MR by echo 11/27/2024, will continue to follow
-Discussed with nursing, patient
Progress Note - Instructional Systems Specialist
Subjective
Date of Service: December 14, 2024
Patient seen and examined. No acute events overnight. Patient resting comfortably in bed. Patient planning for thoracentesis today. Patient reports overall improvement in breathing. No further episodes of palpitations or shortness of breath.
Telemetry demonstrates sinus rhythm without AF/AFL. Rare PVCs.
Objective
Labs:
12/13/24 02:35
12/14/24 04:22
Labs
Hgb 13.0 g/dL (13.0-18.0) 12/13/24 02:35
Hct 37.9 % (39.0-52.0) L 12/13/24 02:35
Plt Count 132 10^3/uL (130-400) 12/13/24 02:35
APTT Cancelled 12/05/24 16:00
Sodium 140 mmol/L (135-145) 12/14/24 04:22
Potassium 3.5 mmol/L (3.5-5.1) 12/14/24 04:22
BUN 76 mg/dl (9-20) H 12/14/24 04:22
Creatinine 2.1 mg/dL (0.7-1.3) H 12/14/24 04:22
Glucose 110 mg/dl (70-99) H 12/14/24 04:22
Vital Signs and I&O:
Vital Signs
Temp Pulse Resp BP Pulse Ox
97.3 F 62 20 102/57 99
12/14/24 11:16 12/14/24 08:35 12/14/24 11:16 12/14/24 08:35 12/14/24 11:16
Vital Signs
Temp Pulse Resp BP Pulse Ox
97.3 F 62 20 102/57 99
12/14/24 11:16 12/14/24 08:35 12/14/24 11:16 12/14/24 08:35 12/14/24 11:16
Intake & Output
12/12/24 12/13/24 12/14/24 12/15/24
06:59 06:59 06:59 06:59
Intake Total 1750 / 1750 840 / 840 240 / 240
Output Total 350 / 350 1425 / 1425 1000 / 1000
Balance -350 / -350 325 / 325 -160 / -160 240 / 240
Physical Exam
Physical Exam
GEN: No distress, awake, alert, oriented x3. Sitting in chair
HEENT: supple, anicteric, mmm, EOMI
LUNGS: Decreased at B/L bases, no wheezes
CV: Reg, S1/S2, 1/6 murmur
ABD: soft, BS+, NT/ND
EXT: No cyanosis, clubbing. Trace edema of bilateral lower extremity
NEURO: Gross non-focal
SKIN: Warm, pink, dry. No rash
[2024-12-14] MEDS: KCL 40 MEQ PO (14:03)
--- NOTE | 2024-12-14 16:03 | W.PN.HOSP.TC ---
Today's Communication/Plan
-
Assessment / Plan
Assessment / Plan
General: No Apparent Distress, Comfortable and Conversant
HEENT: NormoCephalic, Moist mucous membranes, Atraumatic
Respiratory: No wheezing or rhonchi, Non Labored Respirations
Cardiac: Regular rhythm, heart rate controlled around 70
GI: Soft, Non Tender, Non Distended and Normal Bowel Sounds
Musculoskeletal: Mild bilateral lower extremity edema, no deformity
: NO Rose
Neuro: Awake, Alert, Nonfocal/grossly intact
Psych: Calm and Intact Judgment/Insight
83yo M with PMHX of Afib on Eliquis, HLD, HTN came with episodes of palpitation, diaphoresis and b/l ankle swelling. Was previously scheduled for CV and ablation in Nov. Found CHF exacerbation and afib with RVR. Successful CV done on 12/07/24. Low
threshold for transfer to tertiary center if deteriorates in view of significantly reduced EF. Plan for ablation on 12/12/24 and due to high risk CHF - planned to be done as inpatient
A/P:
#Afib with RVR
#Acute on chronic HFrEF exacerbation
#Troponin elevation, non ischemic myocardial injury 2/2 tachycardia
#Iatrogenic QTc prolongation
- Troponin within limits seen on previous admissions - peaked at 0.042, doubt acute ischemia
- echo on 11/27/24 - EF fell to 18% with dilated CM, moderate-severe MR
- Status post PVI 12/12 electrophysiology, tolerated procedure well, currently in sinus rhythm with controlled heart rate, restarted Eliquis postprocedure
- Continuing amiodarone at 100 mg p.o. daily and metoprolol succinate at 25 mg p.o. twice daily
- Thoracic echo showed moderate bilateral pleural effusions, status post right thoracentesis today 12/14, planning for left Thora tomorrow, currently holding IV diuresis due to worsening renal function
#Bilateral pleural effusion
- Suspect due to CHF exacerbation
- Status post right thoracentesis today 12/14 with 1.2 L of clear gold colored fluid removed, transitive by labs
- Plan for left thoracentesis tomorrow
#LUCIANA
#Hypokalemia
Cr baseline 1.2, renal function remains worse worse than baseline today with creatinine of 2.1
Potassium 3.5 today, repleted
Nephrology following, holding diuresis for now and monitor renal function
US renal unremarkable
#Subclinical hyperthyroidism
minimal increase of TSH and FT4 overt ULN - will recheck in 1-2 weeks, no indication for medications
#mild leukocytosis
most likely 2/2 CV
- Resolved
follow off Abx
Patient has no GI, urinary or respiratory complains
#Essential HTN
#HLD
#LETICIA on CPAP
#Hx of prostate CA s/p TURP
#R retinal tear
cont CPAP
cont home meds
DVT ppx Eliquis
Full code
I have spent at least 45 min reviewing chart, test results, communication with consultants and providing direct patient care
Anticipated Discharge: 24 - 48 hours
Subjective/Interval History
-
Date of Service: December 14, 2024
Patient was seen and examined at bedside this morning. He just returned from IR right thoracentesis where 1.2 L of clear gold colored pleural fluid was removed. Currently comfortable.
Objective Data
-
Labs:
Laboratory Results
12/14/24
04:22
Sodium 140
Potassium 3.5
Chloride 107
Carbon Dioxide 23
BUN 76 H
Creatinine 2.1 H
Glucose 110 H
Calcium 7.9 L
Vital Signs:
Vital Signs
Temp Pulse Resp BP Pulse Ox
97.5 F 62 20 102/57 98
12/14/24 15:22 12/14/24 08:35 12/14/24 15:22 12/14/24 08:35 12/14/24 15:22
I&O
12/13/24 12/14/24 12/15/24
06:59 06:59 06:59
Intake Total 1750 / 1750 840 / 840 240 / 240
Output Total 1425 / 1425 1000 / 1000
Balance 325 / 325 -160 / -160 240 / 240
Review of Systems
-
History Source: Patient
All other systems: Reviewed and negative
Physical Exam
-
General: No Apparent Distress
--- NOTE | 2024-12-14 17:56 | PTCARENOTE ---
Assumed care of the pt @0700. Pt is AAOx3 SB/SR with PVC's VSS. Pt went for Rt Thoracentesis this morning 1200 ml removed bandaid in place c/d/i. Lungs cta sats 98%on RA. Pt up in chair and ambulates with walker in room and hallway. POC discussed
with pt. at bedside. Call gregorio within reach.
--- NOTE | 2024-12-14 21:34 | PTCARENOTE ---
Patient received at change of shift out of bed to the chair. Right posterior/lateral back puncture site from thoracentesis with bandaid, C/D/I. Bilateral groin punctures with gauze and tegaderm C/D/I, no evidence of hematoma, bilateral pedal pulses
palpable. The patient denies pain at this time, only reports feeling tired. Sinus rhythm with a BBB and prolonged QT on telemetry. Oxygen saturation 96-98% on room air. Plan of care discussed. Call gregorio within reach. Care ongoing.
[2024-12-14] MEDS: XANAX 0.25 MG PO (22:09)
[2024-12-15] VITALS (7 sets, daily range): BP systolic 98–118; BP diastolic 55–64; BMI 20.6
[2024-12-15 03:44] LABS: Hematocrit 39.0 % (39.0-52.0); Hemoglobin 13.7 g/dL (13.0-18.0); Mean Corp Hgb Conc. 35.1 g/dL (33.0-37.0); Mean Corpuscular Volume 91.8 fL (80.0-94.0); Platelet Count 121 10^3/uL (130-400); Red Cell Dist. Width 14.0 % (11.5-14.5)
[2024-12-15 04:06] LABS: Blood Urea Nitrogen 75 mg/dl (9-20); Calcium 7.8 mg/dl (8.4-10.2); Carbon Dioxide 21 mmol/L (22-30); Chloride 107 mmol/L (98-107); Estimated Creatinine Clearance 28 ml/min; Glucose 106 mg/dl (70-99); Potassium 3.7 mmol/L (3.5-5.1); Sodium 137 mmol/L (135-145); eGFR 32.91
[2024-12-15] MEDS: ANESTHETIC LOZENGE 1 LOZENGE PO (05:47)
--- NOTE | 2024-12-15 09:15 | W.PN.CARDCBS ---
Addendum entered and electronically signed by Trey Diego DO 12/15/24 09:41:
I saw and examined the patient.
The Restoration Officer's note was reviewed and I agree with the note.
Comment:
Patient resting comfortably in chair reporting improvement in breathing. Notes some shortness of breath. No reported chest pain, palpitations, weakness.
Status post thoracentesis 12/14/2024 with 1.2 L straw-colored fluid removed planning on possible left thoracentesis today if IR available.
GEN: No distress, awake, alert, oriented x3. Sitting in chair
HEENT: supple, anicteric, mmm, EOMI
LUNGS: Decreased at LLB, no wheezes
CV: Reg and sherri, S1/S2, 1/6 murmur
ABD: soft, BS+, NT/ND
EXT: No cyanosis, clubbing. 1+ edema of bilateral lower extremity
NEURO: Gross non-focal
SKIN: Warm, pink, dry. No rash
A/P as below
Discussed with nephrology, plan to resume IV Lasix 40 mg twice daily with monitoring renal function and electrolytes
Possible thoracentesis today with interventional radiology if not, tentatively Tuesday
Reduced beta-myron, continue amiodarone repeat EKG
Monitor on telemetry
Eliquis 2.5 mg twice daily due to renal function. Will need to adjust dose once renal function improves
Original Note:
Today's Communication / Plan
-
Left thoracentesis if IR able
Decrease Toprol. Continue low-dose Amio
Follow QTc, check EKG today
Resume IV lasix 40mg BID
Decrease Eliquis to 2.5 mg twice daily dosing for now, will need to increase back if creatinine continues to improve
Impression / Plan
-
PCP: Dr. Gaxiola
Primary Precision Filer Hand: Dr. Burks
Impression:
Acute on chronic HFrEF, improving
Paroxysmal atrial tachycardia vs atypical aflutter with RVR
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
Admission to [facility] for atach with RVR, CHF and successful CV 11/26/24 until 11/29/24
Paroxysmal A-fib/typical atrial flutter
s/p PVI 10/2023
s/p successful EVARISTO/CV 01/26/24
s/p successful CV 11/28/24
s/p successful CV 12/07/2024
Status post PFA PVI/PWI, CTI RFA 12/12/2024
Chronic Eliquis OAC
Junctional rhythm seen on ECG following CV 12/07/2024
Chronic HFpEF
Improved CM, EF as low as 35% by EVARISTO 01/26/2024 and improved to 50% by echo 10/08/2024
Moderate MR by echo 10/08/2024
Mild to moderate aortic regurgitation
Chronic LBBB
h/o sinus bradycardia
History of vasovagal syncope
HTN
HLD
LETICIA on CPAP
prostate cancer s/p prostatectomy
Retinal tear of R eye
Lexiscan nuclear stress test 06/07/2022: Fixed defect in basal inferolateral, basal inferior, basal inferoseptal, mid inferior and apical inferior segments consistent with infarction with superimposed soft tissue attenuation, fixed defect in mid
anteroseptal defect consistent with infarction, EF 45%
Echo 08/2022: EF 55%, abnormal paradoxical septal motion consistent with left bundle branch block, mild concentric LVH, severely dilated LA, moderate MR, mild to moderate AR, mild TR, PAP 43 mmHg, trivial pericardial effusion
EVARISTO 01/26/2024: Global hypokinesis with regional variation, abnormal septal motion consistent with left bundle branch block, EF 35%, no thrombus detected in MENDEZ, moderate central MR, mild to moderate eccentric AR
Echo 10/08/2024: EF 50%, moderate MR, mild to moderate aortic regurgitation
Echo 11/27/2024: EF 18%, bilateral atrial dilatation, mild to moderate AI, moderate to severe MR with very eccentric jet directed toward free wall, mild TR, PAP 46 mmHg
Echo 12/14/2024: EF 20 to 25% with global hypokinesis and moderate to severe LV dysfunction, septal wall motion abnormality consistent with left bundle branch block, mild to moderate AR, at least moderate MR, mild TR, PAP 41 mmHg, pleural effusion
present
Plan:
- Patient was admitted with recurrent atrial arrhythmia on 12/05/2024. Patient with a history of tachycardia mediated CM and this is his second admission in 2 weeks for recurrent atrial arrhythmia.
- Patient had another successful CV on 12/07/2024 and on ECG postprocedure there was SR with competing junctional rhythm, Cardizem gtt that had been running up until CV was stopped. recurred with atach 12/11PM
- s/p PVI/BRAKE DRUM LATHE OPERATOR/floor line/roof line/posterior wall isolation 12/13/24
- During ablation patient was noted to have bilateral pleural effusions and still noted to be in acute heart failure. As creatinine was uptrending, patient underwent right thoracentesis in [facility] on 12/14/2024 for 1200 cc of fluid. Discussed with
interventional radiology yesterday, and will try to complete left thoracentesis today if able
- Creatinine beginning to downtrend, 2.0 on 12/15. discussed with nephrology, will resume IV lasix 40mg BID. LUCIANA felt to be secondary to hypotension requiring pressors during PVI.
- For now we will decrease Eliquis dose to 2.5 mg twice daily. If creatinine drops below 1.5, will need to increase back to 5 mg twice daily dosing
- Remains in sinus bradycardia on review of telemetry. Continue Toprol at reduced dose of 12.5 mg twice daily and amiodarone 100 mg daily. EKG pending this AM to reassess QTc
- Echo repeated 12/14 which shows EF 20 to 25% and at least moderate MR with pleural effusion present. Will need to continue to monitor in outpatient setting
- continue toprol. MINE/ARB/ARNI/aldosterone antagonist/SGLT2 are on hold with LUCIANA on CKD
Progress Note - Precision Filer Hand
Subjective
Date of Service: December 15, 2024
Reports breathing improving status post right thoracentesis yesterday
Objective
Labs:
12/15/24 03:04
12/15/24 03:04
Labs
Hgb 13.7 g/dL (13.0-18.0) 12/15/24 03:04
Hct 39.0 % (39.0-52.0) 12/15/24 03:04
Plt Count 121 10^3/uL (130-400) L 12/15/24 03:04
APTT Cancelled 12/05/24 16:00
Sodium 137 mmol/L (135-145) 12/15/24 03:04
Potassium 3.7 mmol/L (3.5-5.1) 12/15/24 03:04
BUN 75 mg/dl (9-20) H 12/15/24 03:04
Creatinine 2.0 mg/dL (0.7-1.3) H 12/15/24 03:04
Glucose 106 mg/dl (70-99) H 12/15/24 03:04
Vital Signs and I&O:
Vital Signs
Temp Pulse Resp BP Pulse Ox
97.8 F 55 18 106/61 97
12/15/24 09:05 12/15/24 09:05 12/15/24 09:05 12/15/24 02:57 12/15/24 09:05
Vital Signs
Temp Pulse Resp BP Pulse Ox
97.8 F 55 18 106/61 97
12/15/24 09:05 12/15/24 09:05 12/15/24 09:05 12/15/24 02:57 12/15/24 09:05
Intake & Output
12/13/24 12/14/24 12/15/24 12/16/24
07:59 07:59 07:59 07:59
Intake Total 1750 / 2110 840 / 840 720 / 720
Output Total 1425 / 1425 1000 / 1000 250 / 250
Balance 325 / 685 -160 / -160 470 / 470
Physical Exam
Physical Exam
GEN: No distress, awake, alert, oriented x3. Sitting in chair
HEENT: supple, anicteric, mmm, EOMI
LUNGS: Decreased at LLB, no wheezes
CV: Reg and sherri, S1/S2, 1/6 murmur
ABD: soft, BS+, NT/ND
EXT: No cyanosis, clubbing. 1+ edema of bilateral lower extremity
NEURO: Gross non-focal
SKIN: Warm, pink, dry. No rash
[2024-12-15] MEDS: PACERONE 100 MG PO (09:54)
[2024-12-15] MEDS: KCL 40 MEQ PO (09:55)
[2024-12-15] MEDS: ELIQUIS 2.5 MG PO ×2 (09:55→20:18)
[2024-12-15] MEDS: TOPROL XL 12.5 MG PO ×2 (09:55→20:18)
[2024-12-15] MEDS: LASIX 40 MG IV ×2 (09:56→15:59)
[2024-12-15] MEDS: LIPITOR 20 MG PO (09:56)
[2024-12-15] MEDS: FLUSH (NSS) 1 FLUSH IV ×2 (09:57→16:00)
[2024-12-15] MEDS: ELIQUIS PO (10:02)
[2024-12-15] MEDS: TOPROL XL PO (10:02)
--- NOTE | 2024-12-15 12:35 | W.PN.NEPH.PH ---
Today's Communication / Plan
-
resume lasix
Assessment/Plan
-
IMP:
LUCIANA
Afib with RVR s/p CV 12/07
Acute on chronic HFrEF exacerbation
Troponin elevation, non ischemic myocardial injury 2/2 tachycardia
Subclinical hyperthyroidism
mild hyponatremia
Hypokalemia
Essential HTN
HLD
LETICIA on CPAP
Hx of prostate CA s/p TURP
R retinal tear
Plan:
LUCIANA likely from PVI with hypotension/contrast
follow BMP
resume lasix today
possible left thoracentesis
-
-
Date of Service: December 15, 2024
CC / HPI / ROS
-
Chief Complaint:
LUCIANA
History of Present Illness:
LUCIANA/cr stable 2.0
BP stable
diuresing well with IV lasix for decompensated HF, lasix was held for rising Cr
s/p right thoracentesis >1L
s/p PVI on 12/12
Review of Systems:
no SOB at rest
no cp
no n/v
Labs
-
Labs:
WBC 8.9 10^3/uL (4.8-10.8) 12/15/24 03:04
RBC 4.25 10^6/uL (4.70-6.10) L 12/15/24 03:04
Hgb 13.7 g/dL (13.0-18.0) 12/15/24 03:04
Hct 39.0 % (39.0-52.0) 12/15/24 03:04
Plt Count 121 10^3/uL (130-400) L 12/15/24 03:04
Sodium 137 mmol/L (135-145) 12/15/24 03:04
Potassium 3.7 mmol/L (3.5-5.1) 12/15/24 03:04
Chloride 107 mmol/L (98-107) 12/15/24 03:04
Carbon Dioxide 21 mmol/L (22-30) L 12/15/24 03:04
BUN 75 mg/dl (9-20) H 12/15/24 03:04
Creatinine 2.0 mg/dL (0.7-1.3) H 12/15/24 03:04
eGFR 32.91 12/15/24 03:04
Glucose 106 mg/dl (70-99) H 12/15/24 03:04
Calcium 7.8 mg/dl (8.4-10.2) L 12/15/24 03:04
Phosphorus 4.8 mg/dl (2.5-4.5) H 12/05/24 04:09
Eaw-P-Mticvxgzazz Pept 73064 pg/ml 12/14/24 04:22
Albumin 4.1 g/dl (3.5-5.0) 12/04/24 23:35
Physical Exam
-
Vital Signs:
Vital Signs
Temp Pulse Resp BP Pulse Ox
97.4 F 61 18 98/55 97
12/15/24 11:56 12/15/24 11:56 12/15/24 11:56 12/15/24 09:56 12/15/24 11:56
--- NOTE | 2024-12-15 14:30 | W.PN.HOSP.TC ---
Today's Communication/Plan
-
Assessment / Plan
Assessment / Plan
General: No Apparent Distress, Comfortable and Conversant
HEENT: NormoCephalic, Moist mucous membranes, Atraumatic
Respiratory: No wheezing or rhonchi, Non Labored Respirations
Cardiac: Regular rhythm, heart rate controlled around 70
GI: Soft, Non Tender, Non Distended and Normal Bowel Sounds
Musculoskeletal: Mild bilateral lower extremity edema, no deformity
: NO Rose
Neuro: Awake, Alert, Nonfocal/grossly intact
Psych: Calm and Intact Judgment/Insight
83yo M with PMHX of Afib on Eliquis, HLD, HTN came with episodes of palpitation, diaphoresis and b/l ankle swelling. Was previously scheduled for CV and ablation in Nov. Found CHF exacerbation and afib with RVR. Successful CV done on 12/07/24. Low
threshold for transfer to tertiary center if deteriorates in view of significantly reduced EF. Plan for ablation on 12/12/24 and due to high risk CHF - planned to be done as inpatient
A/P:
#Afib with RVR
#Acute on chronic HFrEF exacerbation
#Troponin elevation, non ischemic myocardial injury 2/2 tachycardia
#Iatrogenic QTc prolongation
- Troponin within limits seen on previous admissions - peaked at 0.042, doubt acute ischemia
- echo on 11/27/24 - EF fell to 18% with dilated CM, moderate-severe MR
- Status post PVI 12/12 electrophysiology, tolerated procedure well, currently in sinus rhythm with controlled heart rate, restarted Eliquis postprocedure
- Continuing amiodarone at 100 mg p.o. daily and metoprolol succinate at 25 mg p.o. twice daily
- Thoracic echo showed moderate bilateral pleural effusions, status post right thoracentesis 12/14, planning for left Thora when possible likely Tuesday
- Restarted Lasix at 40 mg IV twice daily
#Bilateral pleural effusion
- Suspect due to CHF exacerbation
- Status post right thoracentesis 12/14 with 1.2 L of clear gold colored fluid removed, transudative by labs
- Plan for left thoracentesis when possible, likely Tuesday
#LUCIANA
#Hypokalemia
Cr baseline 1.2, renal function remains worse worse than baseline today with creatinine of 2.0
Potassium 3.7 today
Nephrology following
US renal unremarkable
#Subclinical hyperthyroidism
minimal increase of TSH and FT4 overt ULN - will recheck in 1-2 weeks, no indication for medications
#mild leukocytosis
most likely 2/2 CV
- Resolved
follow off Abx
Patient has no GI, urinary or respiratory complains
#Essential HTN
#HLD
#LETICIA on CPAP
#Hx of prostate CA s/p TURP
#R retinal tear
cont CPAP
cont home meds
DVT ppx Eliquis
Full code
I have spent at least 43 min reviewing chart, test results, communication with consultants and providing direct patient care
Anticipated Discharge: 24 - 48 hours
Subjective/Interval History
-
Date of Service: December 15, 2024
Patient was seen and examined at bedside this morning. Breathing comfortably. Feeling tired because he was woken up early for labs and vital signs.
Objective Data
-
Labs:
Laboratory Results
12/15/24
03:04
WBC 8.9
Hgb 13.7
Hct 39.0
Plt Count 121 L
Sodium 137
Potassium 3.7
Chloride 107
Carbon Dioxide 21 L
BUN 75 H
Creatinine 2.0 H
Glucose 106 H
Calcium 7.8 L
Vital Signs:
Vital Signs
Temp Pulse Resp BP Pulse Ox
97.4 F 67 18 102/57 97
12/15/24 11:56 12/15/24 13:00 12/15/24 11:56 12/15/24 11:55 12/15/24 11:56
I&O
12/14/24 12/15/24 12/16/24
06:59 06:59 06:59
Intake Total 840 / 840 720 / 720
Output Total 1000 / 1000 125 / 125 425 / 425
Balance -160 / -160 595 / 595 -425 / -425
Review of Systems
-
History Source: Patient
All other systems: Reviewed and negative
Physical Exam
-
General: No Apparent Distress
--- NOTE | 2024-12-15 16:56 | PTCARENOTE ---
received patient this am sitting up in chair eating breakfast. patient is stating that , 'I am going for a left thoracentesis today.', Aliya FIGUEROA informed patient it may not be done today. K was 3.7 supplemented as ordered. monitor shows NSR
with freq. PVC's, VSS. lung field diminished bilat, more so on the left base. right and left fem. vein sites, remain with dsgs. on as per request of patient. patient c/o constipation ordered prune juice and ambulated in room with walker, not
successful yet, patient doesn't want any medication for constipation at this time. patient has been up to chair several times today with walker gracia. well. presently at bedside.
[2024-12-15] MEDS: XANAX 0.25 MG PO (22:04)
--- NOTE | 2024-12-15 23:42 | PTCARENOTE ---
Received pt @ change of shift. AAOx3, OOB in chair, VSS-- NSR w/ BBB, long QT, PACs, PVCs, on monitor. Right and left groins clean, dry, and intact. Pt prefers to keep dressings on. Puncture from right side thoracentesis with bandaid-- surrounding
skin looks good. C/o constipation, but denies medication-- wants to try prunes in the AM and go from there. Discussed plan of care for evening. Pt verbalizes understanding. Call gregorio within reach.
[2024-12-16] VITALS (7 sets, daily range): BP systolic 108–121; BP diastolic 47–71; BMI 20.6
[2024-12-16 05:31] LABS: Blood Urea Nitrogen 70 mg/dl (9-20); Calcium 7.6 mg/dl (8.4-10.2); Carbon Dioxide 29 mmol/L (22-30); Chloride 107 mmol/L (98-107); Estimated Creatinine Clearance 27 ml/min; Glucose 86 mg/dl (70-99); Potassium 3.5 mmol/L (3.5-5.1); Sodium 141 mmol/L (135-145); eGFR 32.91
[2024-12-16] MEDS: MILK OF MAGNESIA 30 ML PO (07:49)
[2024-12-16] MEDS: LASIX 40 MG IV ×2 (07:49→15:49)
[2024-12-16] MEDS: FLUSH (NSS) 1 FLUSH IV ×2 (07:51→15:51)
[2024-12-16] MEDS: PACERONE 100 MG PO (07:52)
[2024-12-16] MEDS: LIPITOR 20 MG PO (07:52)
[2024-12-16] MEDS: TOPROL XL 12.5 MG PO ×2 (07:52→19:46)
[2024-12-16] MEDS: ELIQUIS 2.5 MG PO ×2 (07:52→19:46)
--- NOTE | 2024-12-16 08:29 | PTCARENOTE ---
recited patient this am sitting up in chair eating breakfast. monitor shows NSR, PVC's, PAC's, prolonged QTC, VSS. K 3.5, Dr. Mchugh aware. patient c/o constipation MOM given as ordered. lung streeter diminished, patient is POTTER.
--- NOTE | 2024-12-16 09:23 | W.PN.CARDCBS ---
Today's Communication / Plan
-
Replete electrolytes
IV diuresis
Thoracentesis in a.m. if not performed today
Impression / Plan
-
PCP: Dr. Gaxiola
Primary Cafe Associate: Dr. Burks
Impression:
Acute on chronic HFrEF, improving
Paroxysmal atrial tachycardia vs atypical aflutter with RVR
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
Admission to [facility] for atach with RVR, CHF and successful CV 11/26/24 until 11/29/24
Paroxysmal A-fib/typical atrial flutter
s/p PVI 10/2023
s/p successful EVARISTO/CV 01/26/24
s/p successful CV 11/28/24
s/p successful CV 12/07/2024
Status post PFA PVI/PWI, CTI RFA 12/12/2024
Chronic Eliquis OAC
Junctional rhythm seen on ECG following CV 12/07/2024
Chronic HFpEF
Improved CM, EF as low as 35% by EVARISTO 01/26/2024 and improved to 50% by echo 10/08/2024
Moderate MR by echo 10/08/2024
Mild to moderate aortic regurgitation
Chronic LBBB
h/o sinus bradycardia
History of vasovagal syncope
HTN
HLD
LETICIA on CPAP
prostate cancer s/p prostatectomy
Retinal tear of R eye
Lexiscan nuclear stress test 06/07/2022: Fixed defect in basal inferolateral, basal inferior, basal inferoseptal, mid inferior and apical inferior segments consistent with infarction with superimposed soft tissue attenuation, fixed defect in mid
anteroseptal defect consistent with infarction, EF 45%
Echo 08/2022: EF 55%, abnormal paradoxical septal motion consistent with left bundle branch block, mild concentric LVH, severely dilated LA, moderate MR, mild to moderate AR, mild TR, PAP 43 mmHg, trivial pericardial effusion
EVARISTO 01/26/2024: Global hypokinesis with regional variation, abnormal septal motion consistent with left bundle branch block, EF 35%, no thrombus detected in MENDEZ, moderate central MR, mild to moderate eccentric AR
Echo 10/08/2024: EF 50%, moderate MR, mild to moderate aortic regurgitation
Echo 11/27/2024: EF 18%, bilateral atrial dilatation, mild to moderate AI, moderate to severe MR with very eccentric jet directed toward free wall, mild TR, PAP 46 mmHg
Echo 12/14/2024: EF 20 to 25% with global hypokinesis and moderate to severe LV dysfunction, septal wall motion abnormality consistent with left bundle branch block, mild to moderate AR, at least moderate MR, mild TR, PAP 41 mmHg, pleural effusion
present
Plan:
- Patient was admitted with recurrent atrial arrhythmia on 12/05/2024. Patient with a history of tachycardia mediated CM and this is his second admission in 2 weeks for recurrent atrial arrhythmia.
- Patient had another successful CV on 12/07/2024 and on ECG postprocedure there was SR with competing junctional rhythm, Cardizem gtt that had been running up until CV was stopped. recurred with atach 10/7PM
- s/p PVI/[employer]STRUCTION [employer]/floor line/roof line/posterior wall isolation 12/13/24
- During ablation patient was noted to have bilateral pleural effusions and still noted to be in acute heart failure. As creatinine was uptrending, patient underwent right thoracentesis in [facility] on 12/14/2024 for 1200 cc of fluid. Discussed with
interventional radiology yesterday, and will try to complete left thoracentesis today if able
- Creatinine beginning to downtrend, 2.0 on 12/15. discussed with nephrology, will resume IV lasix 40mg BID. LUCIANA felt to be secondary to hypotension requiring pressors during PVI.
- For now we will decrease Eliquis dose to 2.5 mg twice daily. If creatinine drops below 1.5, will need to increase back to 5 mg twice daily dosing
- Remains in sinus bradycardia on review of telemetry. Continue Toprol at reduced dose of 12.5 mg twice daily and amiodarone 100 mg daily. QT/QTc remained stable at 502/513 ms with left bundle branch block
- Echo repeated 12/14 which shows EF 20 to 25% and at least moderate MR with pleural effusion present. Will need to continue to monitor in outpatient setting
- continue toprol. MINE/ARB/ARNI/aldosterone antagonist/SGLT2 are on hold with LUCIANA on CKD
� Renal function remains stable at 2.0 today, this is after resuming IV Lasix 40 mg twice daily; continue to monitor renal function intake and output, daily weights. Will replete potassium today will recheck tomorrow
Tentative thoracentesis today if urgent from [facility] however if no thoracentesis performed today, strongly encourage and recommend thoracentesis tomorrow
Progress Note - Cafe Associate
Subjective
Date of Service: December 16, 2024
Patient seen and examined. No acute events overnight. Patient resting comfortably in chair. Patient reports mild constipation. Denies chest pain, shortness of breath, palpitations, weakness.
Objective
Labs:
12/15/24 03:04
12/16/24 04:42
Labs
Hgb 13.7 g/dL (13.0-18.0) 12/15/24 03:04
Hct 39.0 % (39.0-52.0) 12/15/24 03:04
Plt Count 121 10^3/uL (130-400) L 12/15/24 03:04
APTT Cancelled 12/05/24 16:00
Sodium 141 mmol/L (135-145) 12/16/24 04:42
Potassium 3.5 mmol/L (3.5-5.1) 12/16/24 04:42
BUN 70 mg/dl (9-20) H 12/16/24 04:42
Creatinine 2.0 mg/dL (0.7-1.3) H 12/16/24 04:42
Glucose 86 mg/dl (70-99) 12/16/24 04:42
Vital Signs and I&O:
Vital Signs
Temp Pulse Resp BP Pulse Ox
98.4 F 56 18 112/57 97
12/16/24 07:44 12/16/24 07:52 12/16/24 07:44 12/16/24 07:52 12/16/24 07:44
Vital Signs
Temp Pulse Resp BP Pulse Ox
98.4 F 56 18 112/57 97
12/16/24 07:44 12/16/24 07:52 12/16/24 07:44 12/16/24 07:52 12/16/24 07:44
Intake & Output
12/14/24 12/15/24 12/16/24 12/17/24
06:59 06:59 06:59 06:59
Intake Total 840 / 840 720 / 720
Output Total 1000 / 1000 125 / 125 1025 / 1025
Balance -160 / -160 595 / 595 -1025 / -1025
Physical Exam
Physical Exam
GEN: No distress, awake, alert, oriented x3. Sitting in chair
HEENT: supple, anicteric, mmm, EOMI
LUNGS: Decreased at LLB, no wheezes
CV: Reg and sherri, S1/S2, 1/6 murmur
ABD: soft, BS+, NT/ND
EXT: No cyanosis, clubbing. Trace + edema of bilateral lower extremity
NEURO: Gross non-focal
SKIN: Warm, pink, dry. No rash
[2024-12-16] MEDS: KLOR-CON 20 MEQ PO ×2 (09:51→20:56)
--- NOTE | 2024-12-16 14:18 | W.PN.NEPH.PH ---
Today's Communication / Plan
-
follow BMP
Assessment/Plan
-
IMP:
LUCIANA
Afib with RVR s/p CV 12/07
Acute on chronic HFrEF exacerbation
Troponin elevation, non ischemic myocardial injury 2/2 tachycardia
Subclinical hyperthyroidism
mild hyponatremia
Hypokalemia
Essential HTN
HLD
LETICIA on CPAP
Hx of prostate CA s/p TURP
R retinal tear
Plan:
LUCIANA likely from PVI with hypotension/contrast, should begin to improve
follow BMP
continue IV lasix
possible left thoracentesis
-
-
Date of Service: December 16, 2024
CC / HPI / ROS
-
Chief Complaint:
LUCIANA
History of Present Illness:
LUCIANA/cr stable 2.0
BP stable
diuresing well with IV lasix for decompensated HF
s/p right thoracentesis >1L
s/p PVI on 12/12
Review of Systems:
no SOB at rest
no cp
no n/v
Labs
-
Labs:
WBC 8.9 10^3/uL (4.8-10.8) 12/15/24 03:04
RBC 4.25 10^6/uL (4.70-6.10) L 12/15/24 03:04
Hgb 13.7 g/dL (13.0-18.0) 12/15/24 03:04
Hct 39.0 % (39.0-52.0) 12/15/24 03:04
Plt Count 121 10^3/uL (130-400) L 12/15/24 03:04
Sodium 141 mmol/L (135-145) 12/16/24 04:42
Potassium 3.5 mmol/L (3.5-5.1) 12/16/24 04:42
Chloride 107 mmol/L (98-107) 12/16/24 04:42
Carbon Dioxide 29 mmol/L (22-30) 12/16/24 04:42
BUN 70 mg/dl (9-20) H 12/16/24 04:42
Creatinine 2.0 mg/dL (0.7-1.3) H 12/16/24 04:42
eGFR 32.91 12/16/24 04:42
Glucose 86 mg/dl (70-99) 12/16/24 04:42
Calcium 7.6 mg/dl (8.4-10.2) L 12/16/24 04:42
Phosphorus 4.8 mg/dl (2.5-4.5) H 12/05/24 04:09
Zko-I-Ztgisyibdyw Pept 26042 pg/ml 12/14/24 04:22
Albumin 4.1 g/dl (3.5-5.0) 12/04/24 23:35
Physical Exam
-
Vital Signs:
Vital Signs
Temp Pulse Resp BP Pulse Ox
97.8 F 60 20 112/57 98
12/16/24 11:33 12/16/24 11:00 12/16/24 11:33 12/16/24 07:52 12/16/24 11:33
Cardiovascular:: Regular rate and rhythm
Respiratory:: Bilateral: Coarse
Lung Excursion:: Normal
Abdomen:: Nontender and Soft
Bowel Sounds:: Normal
Extremity Edema:: +1: Bilateral:
--- NOTE | 2024-12-16 14:52 | W.PN.HOSP.TC ---
Today's Communication/Plan
-
Assessment / Plan
Assessment / Plan
General: No Apparent Distress, Comfortable and Conversant
HEENT: NormoCephalic, Moist mucous membranes, Atraumatic
Respiratory: No wheezing or rhonchi, Non Labored Respirations
Cardiac: Regular rhythm, heart rate controlled around 70
GI: Soft, Non Tender, Non Distended and Normal Bowel Sounds
Musculoskeletal: Mild bilateral lower extremity edema, no deformity
: NO Rose
Neuro: Awake, Alert, Nonfocal/grossly intact
Psych: Calm and Intact Judgment/Insight
83yo M with PMHX of Afib on Eliquis, HLD, HTN came with episodes of palpitation, diaphoresis and b/l ankle swelling. Was previously scheduled for CV and ablation in Nov. Found CHF exacerbation and afib with RVR. Successful CV done on 12/07/24. Low
threshold for transfer to tertiary center if deteriorates in view of significantly reduced EF. Plan for ablation on 12/12/24 and due to high risk CHF - planned to be done as inpatient
A/P:
#Afib with RVR
#Acute on chronic HFrEF exacerbation
#Troponin elevation, non ischemic myocardial injury 2/2 tachycardia
#Iatrogenic QTc prolongation
- Troponin within limits seen on previous admissions - peaked at 0.042, doubt acute ischemia
- echo on 11/27/24 - EF fell to 18% with dilated CM, moderate-severe MR
- Status post PVI 12/12 electrophysiology, tolerated procedure well, currently in sinus rhythm with controlled heart rate, restarted Eliquis postprocedure
- Continuing amiodarone at 100 mg p.o. daily and metoprolol succinate at reduced dose of 12.5 mg p.o. twice daily
- Thoracic echo showed moderate bilateral pleural effusions, status post right thoracentesis 12/14, planning for left Thora when possible likely Tuesday
- Restarted Lasix at 40 mg IV twice daily
#Bilateral pleural effusion
- Suspect due to CHF exacerbation
- Status post right thoracentesis 12/14 with 1.2 L of clear gold colored fluid removed, transudative by labs
- Plan for left thoracentesis when possible, likely Tuesday
#LUCIANA
#Hypokalemia
Cr baseline 1.2, renal function remains worse worse than baseline today with creatinine of 2.0
Potassium 3.5 today
Nephrology following
US renal unremarkable
#Subclinical hyperthyroidism
minimal increase of TSH and FT4 overt ULN - will recheck in 1-2 weeks, no indication for medications
#mild leukocytosis
most likely 2/2 CV
- Resolved
follow off Abx
Patient has no GI, urinary or respiratory complains
#Essential HTN
#HLD
#LETICIA on CPAP
#Hx of prostate CA s/p TURP
#R retinal tear
cont CPAP
cont home meds
DVT ppx Eliquis
Full code
I have spent at least 41 min reviewing chart, test results, communication with consultants and providing direct patient care
Anticipated Discharge: 24 - 48 hours
Subjective/Interval History
-
Date of Service: December 16, 2024
Patient was seen and examined at bedside this morning. Comfortable. Pending thoracentesis hopefully tomorrow for left pleural effusion. Heart rate well-controlled.
Objective Data
-
Labs:
Laboratory Results
12/16/24
04:42
Sodium 141
Potassium 3.5
Chloride 107
Carbon Dioxide 29
BUN 70 H
Creatinine 2.0 H
Glucose 86
Calcium 7.6 L
Vital Signs:
Vital Signs
Temp Pulse Resp BP Pulse Ox
97.8 F 60 20 112/57 98
12/16/24 11:33 12/16/24 11:00 12/16/24 11:33 12/16/24 07:52 12/16/24 11:33
I&O
12/15/24 12/16/24 12/17/24
06:59 06:59 06:59
Intake Total 720 / 720
Output Total 125 / 125 1025 / 1025
Balance 595 / 595 -1025 / -1025
Review of Systems
-
History Source: Patient
All other systems: Reviewed and negative
Physical Exam
-
General: No Apparent Distress
[2024-12-16] MEDS: XANAX 0.25 MG PO (22:11)
[2024-12-17] VITALS (9 sets, daily range): BP systolic 62–119; BP diastolic 43–65; BMI 20.5
--- NOTE | 2024-12-17 01:02 | PTCARENOTE ---
Received pt @ change of shift. AAOx3, VSS-- SB with BBB, PACs, PVCs, and long QT. Discussed plan of care for evening. Pt verbalizes understanding. Call gregorio within reach.
[2024-12-17 05:26] LABS: Hematocrit 40.3 % (39.0-52.0); Hemoglobin 13.2 g/dL (13.0-18.0); Mean Corp Hgb Conc. 32.8 g/dL (33.0-37.0); Mean Corpuscular Volume 94.6 fL (80.0-94.0); Nucleated Red Blood Cells % 0 % (-); Platelet Count 114 10^3/uL (130-400); Red Cell Dist. Width 14.1 % (11.5-14.5)
[2024-12-17 05:49] LABS: Blood Urea Nitrogen 55 mg/dl (9-20); Calcium 7.6 mg/dl (8.4-10.2); Carbon Dioxide 28 mmol/L (22-30); Chloride 108 mmol/L (98-107); Estimated Creatinine Clearance 34 ml/min; Glucose 80 mg/dl (70-99); Magnesium 2.3 mg/dl (1.6-2.3); Potassium 3.7 mmol/L (3.5-5.1); Sodium 140 mmol/L (135-145); eGFR 43.02
[2024-12-17] MEDS: PACERONE 100 MG PO (09:01)
[2024-12-17] MEDS: TOPROL XL 12.5 MG PO ×2 (09:02→19:40)
[2024-12-17] MEDS: ELIQUIS 2.5 MG PO ×2 (09:02→19:40)
[2024-12-17] MEDS: LIPITOR 20 MG PO (09:02)
[2024-12-17] MEDS: LASIX 40 MG IV ×2 (09:02→15:59)
[2024-12-17] MEDS: FLUSH (NSS) 1 FLUSH IV ×2 (09:04→16:00)
--- NOTE | 2024-12-17 09:36 | PTCARENOTE ---
recived patient this am sitting in a chair eating breakfast. monitor shows NSR with BBC, prolonged QT. IR called, patient sent to IR via stretcher.
--- NOTE | 2024-12-17 09:37 | PTCARENOTE ---
patient returned from IR with left back band aid applied from thoracentesis, they drained 750cc. patient lung streeter diminished, o2 sat on RA 97%. patient stated, 'I feel good'.
--- NOTE | 2024-12-17 10:30 | W.PN.CARDCBS ---
Today's Communication / Plan
-
Cont IV lasix diuresis and possible transition to oral lasix next 24-48 hrs.
Wt is down from admit.
Cr improving to 1.6.
LUCIANA felt to be secondary to hypotension requiring pressors during PVI.
Appreciate nephro input
Successful ultrasound-guided thoracentesis, yielding 750 cc of clear yellow pleural fluid Dec 17 2024
Eliquis dose had been reduced to 2.5 mg twice daily. If creatinine drops below 1.5, will need to increase back to 5 mg twice daily dosing
Remains in sinus bradycardia, continue Toprol at reduced dose of 12.5 mg twice daily and amiodarone 100 mg daily.
Check EKG
Repeat echo as outpt now that he is in sinus
Cont GDMT: Cont Toprol. MINE/ARB/ARNI/aldosterone antagonist/SGLT2 are on hold with LUCIANA on CKD
Impression / Plan
-
PCP: Dr. Gaxiola
Primary Program Management Specialist: Dr. Burks
Impression:
s/p thoracentesis Dec 17
Acute on chronic HFrEF, improving
Paroxysmal atrial tachycardia vs atypical aflutter with RVR
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
Admission to [facility] for atach with RVR, CHF and successful CV 11/26/24 until 11/29/24
Paroxysmal A-fib/typical atrial flutter
s/p PVI 10/2023
s/p successful EVARISTO/CV 01/26/24
s/p successful CV 11/28/24
s/p successful CV 12/07/2024
Status post PFA PVI/PWI, CTI RFA 12/12/2024
Chronic Eliquis OAC
Junctional rhythm seen on ECG following CV 12/07/2024
Chronic HFpEF
Improved CM, EF as low as 35% by EVARISTO 01/26/2024 and improved to 50% by echo 10/08/2024
Moderate MR by echo 10/08/2024
Mild to moderate aortic regurgitation
Chronic LBBB
h/o sinus bradycardia
History of vasovagal syncope
HTN
HLD
LETICIA on CPAP
prostate cancer s/p prostatectomy
Retinal tear of R eye
Lexiscan nuclear stress test 06/07/2022: Fixed defect in basal inferolateral, basal inferior, basal inferoseptal, mid inferior and apical inferior segments consistent with infarction with superimposed soft tissue attenuation, fixed defect in mid
anteroseptal defect consistent with infarction, EF 45%
Echo 08/2022: EF 55%, abnormal paradoxical septal motion consistent with left bundle branch block, mild concentric LVH, severely dilated LA, moderate MR, mild to moderate AR, mild TR, PAP 43 mmHg, trivial pericardial effusion
EVARISTO 01/26/2024: Global hypokinesis with regional variation, abnormal septal motion consistent with left bundle branch block, EF 35%, no thrombus detected in MENDEZ, moderate central MR, mild to moderate eccentric AR
Echo 10/08/2024: EF 50%, moderate MR, mild to moderate aortic regurgitation
Echo 11/27/2024: EF 18%, bilateral atrial dilatation, mild to moderate AI, moderate to severe MR with very eccentric jet directed toward free wall, mild TR, PAP 46 mmHg
Echo 12/14/2024: EF 20 to 25% with global hypokinesis and moderate to severe LV dysfunction, septal wall motion abnormality consistent with left bundle branch block, mild to moderate AR, at least moderate MR, mild TR, PAP 41 mmHg, pleural effusion
present
Plan:
Additional History:
- Patient was admitted with recurrent atrial arrhythmia on 12/05/2024. Patient with a history of tachycardia mediated CM and this is his second admission in 2 weeks for recurrent atrial arrhythmia.
- Patient had another successful CV on 12/07/2024 and on ECG postprocedure there was SR with competing junctional rhythm, Cardizem gtt that had been running up until CV was stopped. recurred with atach 10/7PM
- s/p PVI/HEEL ATTACHER/floor line/roof line/posterior wall isolation 12/13/24. During ablation patient was noted to have bilateral pleural effusions and still noted to be in acute heart failure. As creatinine was uptrending, patient underwent right
thoracentesis in [facility] on 12/14/2024 for 1200 cc of fluid.
Cont IV lasix diuresis and possible transition to oral lasix next 24-48 hrs.
Wt is down from admit.
Cr improving to 1.6.
LUCIANA felt to be secondary to hypotension requiring pressors during PVI.
Appreciate nephro input
Successful ultrasound-guided thoracentesis, yielding 750 cc of clear yellow pleural fluid Dec 17 2024
Eliquis dose had been reduced to 2.5 mg twice daily. If creatinine drops below 1.5, will need to increase back to 5 mg twice daily dosing
Remains in sinus bradycardia, continue Toprol at reduced dose of 12.5 mg twice daily and amiodarone 100 mg daily.
Check EKG
Repeat echo as outpt now that he is in sinus
Cont GDMT: Cont Toprol. MINE/ARB/ARNI/aldosterone antagonist/SGLT2 are on hold with LUCIANA on CKD
Progress Note - Program Management Specialist
Subjective
Date of Service: December 17, 2024
Pt seen and examined. No complaints. No chest pain or shortness of breath.
Objective
Labs:
12/17/24 04:27
12/17/24 04:27
Labs
Hgb 13.2 g/dL (13.0-18.0) 12/17/24 04:27
Hct 40.3 % (39.0-52.0) 12/17/24 04:27
Plt Count 114 10^3/uL (130-400) L 12/17/24 04:27
APTT Cancelled 12/05/24 16:00
Sodium 140 mmol/L (135-145) 12/17/24 04:27
Potassium 3.7 mmol/L (3.5-5.1) 12/17/24 04:27
BUN 55 mg/dl (9-20) H 12/17/24 04:27
Creatinine 1.6 mg/dL (0.7-1.3) H 12/17/24 04:27
Glucose 80 mg/dl (70-99) 12/17/24 04:27
Vital Signs and I&O:
Vital Signs
Temp Pulse Resp BP Pulse Ox
97.8 F 63 18 114/50 98
12/17/24 08:05 12/17/24 10:00 12/17/24 08:46 12/17/24 09:02 12/17/24 08:05
Vital Signs
Temp Pulse Resp BP Pulse Ox
97.8 F 63 18 114/50 98
12/17/24 08:05 12/17/24 10:00 12/17/24 08:46 12/17/24 09:02 12/17/24 08:05
Intake & Output
12/15/24 12/16/24 12/17/24 12/18/24
06:59 06:59 06:59 06:59
Intake Total 720 / 720
Output Total 125 / 125 1025 / 1025 925 / 925
Balance 595 / 595 -1025 / -1025 -925 / -925
Physical Exam
Physical Exam
General: No acute distress, AAOX3
Neck: Negative JVD
Heart: Regular, Negative S3 positive S1/S2, Negative S4, No murmur
Lungs: CTA b/l, negative wheezes/rales/rhonchi
Abd: Positive BS, NT/ND, neg rebound/rigidity/guarding
Ext: Negative cyanosis/clubbing/edema
Neuro: nonfocal
--- NOTE | 2024-12-17 11:54 | W.PN.NEPH.PH ---
Today's Communication / Plan
-
Continue Lasix
Assessment/Plan
-
IMP:
LUCIANA
Afib with RVR s/p CV 12/07
Acute on chronic HFrEF exacerbation
Troponin elevation, non ischemic myocardial injury 2/2 tachycardia
Subclinical hyperthyroidism
mild hyponatremia
Hypokalemia
Essential HTN
HLD
LETICIA on CPAP
Hx of prostate CA s/p TURP
R retinal tear
Plan:
LUCIANA likely from PVI with hypotension/contrast, should begin to improve
follow BMP
continue IV lasix
Status post left thoracentesis 750 cc
Creatinine Peaked at 2.1 improving 1.6 with baseline 1.2
-
-
Date of Service: December 17, 2024
CC / HPI / ROS
-
Chief Complaint:
LUCIANA
History of Present Illness:
LUCIANA/cr stable 2.0
BP stable
diuresing well with IV lasix for decompensated HF
s/p right thoracentesis >1L
s/p PVI on 12/12
Review of Systems:
no SOB at rest
no cp
no n/v
Labs
-
Labs:
WBC 7.5 10^3/uL (4.8-10.8) 12/17/24 04:27
RBC 4.26 10^6/uL (4.70-6.10) L 12/17/24 04:27
Hgb 13.2 g/dL (13.0-18.0) 12/17/24 04:27
Hct 40.3 % (39.0-52.0) 12/17/24 04:27
Plt Count 114 10^3/uL (130-400) L 12/17/24 04:27
Sodium 140 mmol/L (135-145) 12/17/24 04:27
Potassium 3.7 mmol/L (3.5-5.1) 12/17/24 04:27
Chloride 108 mmol/L (98-107) H 12/17/24 04:27
Carbon Dioxide 28 mmol/L (22-30) 12/17/24 04:27
BUN 55 mg/dl (9-20) H 12/17/24 04:27
Creatinine 1.6 mg/dL (0.7-1.3) H 12/17/24 04:27
eGFR 43.02 12/17/24 04:27
Glucose 80 mg/dl (70-99) 12/17/24 04:27
Calcium 7.6 mg/dl (8.4-10.2) L 12/17/24 04:27
Phosphorus 4.8 mg/dl (2.5-4.5) H 12/05/24 04:09
Gyg-M-Ppssraxmysf Pept 45844 pg/ml 12/14/24 04:22
Albumin 4.1 g/dl (3.5-5.0) 12/04/24 23:35
Physical Exam
-
Vital Signs:
Vital Signs
Temp Pulse Resp BP Pulse Ox
97.8 F 63 18 114/50 98
12/17/24 08:05 12/17/24 10:00 12/17/24 08:46 12/17/24 09:02 12/17/24 08:05
Cardiovascular:: Regular rate and rhythm
Respiratory:: Bilateral: Coarse
Lung Excursion:: Normal
Abdomen:: Nontender and Soft
Bowel Sounds:: Normal
Extremity Edema:: +1: Bilateral:
--- NOTE | 2024-12-17 12:53 | W.PN.HOSP.TC ---
Today's Communication/Plan
-
Continue diuretics
Assessment / Plan
Assessment / Plan
Gen-AAOx3, NAD
HEENT-NC, AT, anicteric, clear oral mm
Neck-supple
CV-reg, no M, +S1/S2
Lungs-clear B/L
Abd-soft, NT, ND
Ext-bilateral ankle edema
Musculoskeletal-no cyanosis, clubbing
Skin-warm and dry
Neuro-grossly non-focal
Psych-calm, cooperative
Afib with RVR
Acute on chronic HFrEF exacerbation -clinically improved. Weight down 4 kg. Echocardiogram done 12/14/2024, LVEF 20 to 25% with global hypokinesis. When compared to November 2024, EF improved.
Troponin elevation, non ischemic myocardial injury 2/2 tachycardia
Iatrogenic QTc prolongation
- Troponin within limits seen on previous admissions - peaked at 0.042, doubt acute ischemia
- echo on 11/27/24 - EF fell to 18% with dilated CM, moderate-severe MR
- Status post PVI 12/12 electrophysiology, tolerated procedure well, currently in sinus rhythm with controlled heart rate, restarted Eliquis postprocedure
- Continuing amiodarone at 100 mg p.o. daily and metoprolol succinate at reduced dose of 12.5 mg p.o. twice daily
Continue Lasix at 40 mg IV twice daily
Bilateral pleural effusion- Suspect due to CHF exacerbation.
- Thoracic echo showed moderate bilateral pleural effusions, status post right thoracentesis 12/14, left thoracentesis done 12/17.
LUCIANA -possibly related to hypotension, IV contrast. Creatinine now trending down.
Acute thrombocytopenia -114k. Unclear etiology. Monitor for now.
Hypokalemia -improved.
Abnormal thyroid labs -not consistent with hyper or hypothyroidism. Recommend rechecking labs in 3 to 4 weeks as outpatient.
Essential HTN -controlled.
Hyperlipidemia -lipitor.
LETICIA -on CPAP
Hx of prostate CA s/p TURP
Hx Right retinal tear
Full code
Anticipated Discharge: 24 - 48 hours
Subjective/Interval History
-
Date of Service: December 17, 2024
Patient seen and examined. Dyspnea on exertion improved. No complaints.
Objective Data
-
Labs:
Laboratory Results
12/17/24
04:27
WBC 7.5
Hgb 13.2
Hct 40.3
Plt Count 114 L
Sodium 140
Potassium 3.7
Chloride 108 H
Carbon Dioxide 28
BUN 55 H
Creatinine 1.6 H
Glucose 80
Calcium 7.6 L
Vital Signs:
Vital Signs
Temp Pulse Resp BP Pulse Ox
97.8 F 61 16 119/43 97
12/17/24 08:05 12/17/24 12:00 12/17/24 12:00 12/17/24 12:00 12/17/24 12:00
I&O
12/16/24 12/17/24 12/18/24
06:59 06:59 06:59
Output Total 1025 / 1025 925 / 925
Balance -1025 / -1025 -925 / -925
Review of Systems
-
History Source: Patient
All other systems: Reviewed and negative
--- NOTE | 2024-12-17 13:01 | CM ---
dc plan remains home with when medically stable.
--- NOTE | 2024-12-17 20:38 | PTCARENOTE ---
Received pt @ change of shift. AAOx3, OOB in chair. VSS-- SB w/ BBB and prolonged QT on monitor. Left thoracentesis site bandaid intact-- no swelling around site. Bilateral groins still have dressings on per request of the patient. Areas clean, dry,
intact with no ecchymosis. Discussed plan of care with pt-- verbalizes understanding. Call gregorio within reach.
[2024-12-17] MEDS: XANAX 0.25 MG PO (21:56)
[2024-12-18 04:31] VITALS: BP 112/58
[2024-12-18 05:03] VITALS: BMI 20.2
--- NOTE | 2024-12-18 05:33 | PTCARENOTE ---
Pt rested quietly throughout the night. States 'slept really soundly.' Denies SOB throughout night. Denies pain. Call gregorio left within reach.
[2024-12-18 05:41] LABS: Hematocrit 39.9 % (39.0-52.0); Hemoglobin 13.3 g/dL (13.0-18.0); Mean Corp Hgb Conc. 33.3 g/dL (33.0-37.0); Mean Corpuscular Volume 95.2 fL (80.0-94.0); Nucleated Red Blood Cells % 0 % (-); Platelet Count 117 10^3/uL (130-400); Red Cell Dist. Width 13.9 % (11.5-14.5)
[2024-12-18 05:50] LABS: Blood Urea Nitrogen 45 mg/dl (9-20); Calcium 7.6 mg/dl (8.4-10.2); Carbon Dioxide 27 mmol/L (22-30); Chloride 107 mmol/L (98-107); Estimated Creatinine Clearance 36 ml/min; Glucose 74 mg/dl (70-99); Potassium 3.5 mmol/L (3.5-5.1); Sodium 140 mmol/L (135-145); eGFR 46.48
[2024-12-18 07:48] VITALS: BP 108/52
[2024-12-18] MEDS: TOPROL XL 12.5 MG PO (08:14)
[2024-12-18] MEDS: ELIQUIS 2.5 MG PO (08:14)
[2024-12-18] MEDS: LIPITOR 20 MG PO (08:15)
[2024-12-18] MEDS: LASIX 40 MG IV (08:15)
[2024-12-18] MEDS: PACERONE 100 MG PO (08:15)
[2024-12-18] MEDS: FLUSH (NSS) 1 FLUSH IV (08:16)
[2024-12-18] MEDS: KCL 40 MEQ PO (09:00)
--- NOTE | 2024-12-18 09:11 | W.PN.HOSP.TC ---
Today's Communication/Plan
-
Discharge
Assessment / Plan
Assessment / Plan
Gen-AAOx3, NAD
HEENT-NC, AT, anicteric, clear oral mm
Neck-supple
CV-reg, no M, +S1/S2
Lungs-clear B/L
Abd-soft, NT, ND
Ext-bilateral ankle edema
Musculoskeletal-no cyanosis, clubbing
Skin-warm and dry
Neuro-grossly non-focal
Psych-calm, cooperative
Afib with RVR -has now remained in sinus rhythm for several days.
Acute on chronic HFrEF exacerbation -clinically improved. Weight down 5 kg. Echocardiogram done 12/14/2024, LVEF 20 to 25% with global hypokinesis. When compared to November 2024, EF improved.
Troponin elevation, non ischemic myocardial injury 2/2 tachycardia
Iatrogenic QTc prolongation
- Troponin within limits seen on previous admissions - peaked at 0.042, doubt acute ischemia
- echo on 11/27/24 - EF fell to 18% with dilated CM, moderate-severe MR
- Status post PVI 12/12 electrophysiology, tolerated procedure well, currently in sinus rhythm with controlled heart rate, restarted Eliquis postprocedure
- Continuing amiodarone at 100 mg p.o. daily and metoprolol succinate at reduced dose of 12.5 mg p.o. twice daily
Cardiology recommends transitioning to oral Lasix 40 mg twice daily and discharging today. Outpatient follow-up.
Bilateral pleural effusion- Suspect due to CHF exacerbation.
- Thoracic echo showed moderate bilateral pleural effusions, status post right thoracentesis 12/14, left thoracentesis done 12/17.
LUCIANA -possibly related to hypotension, IV contrast. Creatinine now trending down.
Relative hypokalemia, 3.5 today. Will give a dose of oral potassium.
Acute thrombocytopenia -117k. Unclear etiology. Monitor for now.
Abnormal thyroid labs -not consistent with hyper or hypothyroidism. Recommend rechecking labs in 3 to 4 weeks as outpatient.
Essential HTN -controlled.
Hyperlipidemia -lipitor.
LETICIA -on CPAP
Hx of prostate CA s/p TURP
Hx Right retinal tear
Full code
Dispo -medically stable for discharge home today. Outpatient follow-up.
Discussed with cardiology service.
33 minutes spent in discharge process.
Anticipated Discharge: Today
Subjective/Interval History
-
Date of Service: December 18, 2024
Patient seen and examined. No complaints. Denies shortness of breath, dyspnea on exertion.
Objective Data
-
Labs:
Laboratory Results
12/18/24
04:34
WBC 7.2
Hgb 13.3
Hct 39.9
Plt Count 117 L
Sodium 140
Potassium 3.5
Chloride 107
Carbon Dioxide 27
BUN 45 H
Creatinine 1.5 H
Glucose 74
Calcium 7.6 L
Vital Signs:
Vital Signs
Temp Pulse Resp BP Pulse Ox
97.7 F 49 18 108/52 96
12/18/24 07:46 12/18/24 08:15 12/18/24 07:46 12/18/24 08:15 12/18/24 07:46
I&O
12/17/24 12/18/24 12/19/24
06:59 06:59 06:59
Intake Total 360 / 360
Output Total 925 / 925 1300 / 1300
Balance -925 / -925 -940 / -940
Review of Systems
-
History Source: Patient
All other systems: Reviewed and negative
--- NOTE | 2024-12-18 09:17 | PTCARENOTE ---
received patient this am sitting in chair eating breakfast. monitor shows NSR with BBC and prolonged QT, VSS. K 3.5, supplemented as ordered. patient feeling 'good' today and is hoping to be discharged.
--- NOTE | 2024-12-18 09:20 | W.DS.TRANS ---
DC Summary - Local Superintendent
-
Discharge Instructions:
Discharge Diagnosis/Procedures Acute congestive heart failure, AFib/Flutter,
post ablation, bilateral thoracentesis for
pleural effusions
Diet Low Cholesterol,2 Gram Sodium
Activity As tolerated
Driving Restrictions No driving for 24 hours
Bathing Restrictions None
Blood Work You will need thyroid blood work done in 4 weeks
with your primary care doctor
Specialty Instructions Weigh Daily
Instructions: *DCA Heart Failure Instructions
Stand-Alone Forms:
Changes to Home Medications: Yes
Discharge Medications:
DC Medications w/original date entered in [email or web address]
atorvastatin 20 mg tablet 20 mg PO DAILY High cholesterol 05/13/22
therapeutic multivitamin 1 tab PO DAILY Supplement 05/13/22
dapagliflozin propanediol 10 mg tablet (Farxiga) 10 mg PO DAILY #30 tabs 11/28/24
furosemide 40 mg tablet 40 mg PO BID@0800,1600 30 days #60 tabs 11/29/24
amiodarone 100 mg tablet (Pacerone) 100 mg PO DAILY #30 tabs 12/18/24
apixaban 2.5 mg tablet (Eliquis) 2.5 mg PO BID #60 tabs 12/18/24
metoprolol succinate 25 mg tablet,extended release 24 hr 12.5 mg (1/2 x 25 mg) PO BID #60 tabs 12/18/24
Home Medication Changes
Lisinopril stopped
Apixaban dose reduced
Metoprolol dose reduced
Amiodarone dose reduced
Pending Results: No
--- NOTE | 2024-12-18 09:20 | W.PN.CARDCBS ---
Addendum entered and electronically signed by René Moise MD 12/18/24 10:37:
I saw and examined the patient.
The Memory Care Program Resident's note was reviewed and I agree with the note.
Comment: Briefly, 83-year-old man past medical history of heart failure with reduced ejection fraction (EF 20-25%), suspected tachycardia mediated cardiomyopathy, atrial fibrillation/flutter who presented in acute decompensated heart failure with
atrial fibrillation with rapid ventricular response
Initially successful direct-current cardioversion 12/07, but unfortunately atrial fibrillation recurred
Underwent inpatient A-fib ablation 12/12/2024 and is currently maintaining sinus rhythm
Continue low-dose amiodarone
Would decrease metoprolol dose for bradycardia
Continue Eliquis for risk reduction of cardioembolic stroke
With IV diuresis and thoracentesis his volume status has improved
Okay to transition to p.o. Lasix 40 mg twice daily
He should weigh himself daily. 144 pounds today which is lowest on record.
Continue Farxiga. Blood pressure unable to tolerate spironolactone or MNIE/ARB/ARNI.
Stable for discharge from my perspective
Original Note:
Today's Communication / Plan
-
Transition to oral Lasix 40 mg twice daily
Decrease Toprol to 12.5 mg once a day
Impression / Plan
-
PCP: Dr. Gaxiola
Primary Plant Tech: Dr. Burks
Impression:
s/p thoracentesis Dec 17
Acute on chronic HFrEF, improving
Paroxysmal atrial tachycardia vs atypical aflutter with RVR
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
Admission to [facility] for atach with RVR, CHF and successful CV 11/26/24 until 11/29/24
Paroxysmal A-fib/typical atrial flutter
s/p PVI 10/2023
s/p successful EVARISTO/CV 01/26/24
s/p successful CV 11/28/24
s/p successful CV 12/07/2024
Status post PFA PVI/PWI, CTI RFA 12/12/2024
Chronic Eliquis OAC
Junctional rhythm seen on ECG following CV 12/07/2024
Chronic HFpEF
Improved CM, EF as low as 35% by EVARISTO 01/26/2024 and improved to 50% by echo 10/08/2024
Moderate MR by echo 10/08/2024
Mild to moderate aortic regurgitation
Chronic LBBB
h/o sinus bradycardia
History of vasovagal syncope
HTN
HLD
LETICIA on CPAP
prostate cancer s/p prostatectomy
Retinal tear of R eye
Lexiscan nuclear stress test 06/07/2022: Fixed defect in basal inferolateral, basal inferior, basal inferoseptal, mid inferior and apical inferior segments consistent with infarction with superimposed soft tissue attenuation, fixed defect in mid
anteroseptal defect consistent with infarction, EF 45%
Echo 08/2022: EF 55%, abnormal paradoxical septal motion consistent with left bundle branch block, mild concentric LVH, severely dilated LA, moderate MR, mild to moderate AR, mild TR, PAP 43 mmHg, trivial pericardial effusion
EVARISTO 01/26/2024: Global hypokinesis with regional variation, abnormal septal motion consistent with left bundle branch block, EF 35%, no thrombus detected in MENDEZ, moderate central MR, mild to moderate eccentric AR
Echo 10/08/2024: EF 50%, moderate MR, mild to moderate aortic regurgitation
Echo 11/27/2024: EF 18%, bilateral atrial dilatation, mild to moderate AI, moderate to severe MR with very eccentric jet directed toward free wall, mild TR, PAP 46 mmHg
Echo 12/14/2024: EF 20 to 25% with global hypokinesis and moderate to severe LV dysfunction, septal wall motion abnormality consistent with left bundle branch block, mild to moderate AR, at least moderate MR, mild TR, PAP 41 mmHg, pleural effusion
present
Plan:
- Patient was admitted with recurrent atrial arrhythmia on 12/05/2024. Patient with a history of tachycardia mediated CM and this is his second admission in 2 weeks for recurrent atrial arrhythmia.
- Patient had another successful CV on 12/07/2024 and on ECG postprocedure there was SR with competing junctional rhythm, Cardizem gtt that had been running up until CV was stopped. recurred with atach 10/7PM
- s/p PVI/SHOER/floor line/roof line/posterior wall isolation 12/13/24. During ablation patient was noted to have bilateral pleural effusions and still noted to be in acute heart failure. As creatinine was uptrending, patient underwent right
thoracentesis in [facility] on 12/14/2024 for 1200 cc of fluid and left thoracentesis on 12/17/2024 for 750 cc yellow pleural fluid.
-Weight down 3 pounds overnight to 144 pounds, overall weight down 19 pounds since admission
-Transition to oral Lasix, 40 mg twice daily
Cr improving to 1.5.
LUCIANA felt to be secondary to hypotension requiring pressors during PVI.
Appreciate nephro input
Eliquis dose has been reduced to 2.5 mg twice daily. If creatinine drops below 1.5, will need to increase back to 5 mg twice daily dosing. Creatinine 1.5 on 12/18/2024 so continue Eliquis 2.5 mg twice daily
Telemetry personally reviewed: Sinus bradycardia drops as low as 37bpm during sleep. Will reduce Toprol to 12.5 mg nightly. Continues on amiodarone 100 mg daily.
Repeat echo as outpt now that he is in sinus
Cont GDMT: Cont Toprol. MINE/ARB/ARNI/aldosterone antagonist/SGLT2 are on hold with LUCIANA on CKD
Has previously scheduled outpatient cardiology follow-up on 12/20/2024
Progress Note - Plant Tech
Subjective
Date of Service: December 18, 2024
Feels well, anxious to be discharged
No shortness of breath, chest pain, palpitations, dizziness
Objective
Labs:
12/18/24 04:34
12/18/24 04:34
Labs
Hgb 13.3 g/dL (13.0-18.0) 12/18/24 04:34
Hct 39.9 % (39.0-52.0) 12/18/24 04:34
Plt Count 117 10^3/uL (130-400) L 12/18/24 04:34
APTT Cancelled 12/05/24 16:00
Sodium 140 mmol/L (135-145) 12/18/24 04:34
Potassium 3.5 mmol/L (3.5-5.1) 12/18/24 04:34
BUN 45 mg/dl (9-20) H 12/18/24 04:34
Creatinine 1.5 mg/dL (0.7-1.3) H 12/18/24 04:34
Glucose 74 mg/dl (70-99) 12/18/24 04:34
Vital Signs and I&O:
Vital Signs
Temp Pulse Resp BP Pulse Ox
97.7 F 49 18 108/52 96
12/18/24 07:46 12/18/24 08:15 12/18/24 07:46 12/18/24 08:15 12/18/24 07:46
Vital Signs
Temp Pulse Resp BP Pulse Ox
97.7 F 49 18 108/52 96
12/18/24 07:46 12/18/24 08:15 12/18/24 07:46 12/18/24 08:15 12/18/24 07:46
Intake & Output
12/16/24 12/17/24 12/18/24 12/19/24
06:59 06:59 06:59 06:59
Intake Total 360 / 360
Output Total 1025 / 1025 925 / 925 1300 / 1300
Balance -1025 / -1025 -925 / -925 -940 / -940
Physical Exam
Physical Exam
GEN: No distress, awake, Ox3
HEENT: supple, anicteric, mmm
LUNGS: CTA, no wheezes/rales
CV: Reg, S1/S2, 1/6 syst LSB, no murmur
ABD: soft, BS+, NT/ND
EXT: Trace bilateral lower extremity edema
NEURO: Gross non-focal
SKIN: No rash
[2024-12-18 11:52] VITALS: BP 115/49
[2024-12-18 11:54] VITALS: BP 115/49
--- NOTE | 2024-12-18 11:55 | PTCARENOTE ---
D/C instructions given to patient , verbalizes understanding. bilat. groin dsg. removed, groins ecchymotic, no hematomas, distal pulse weak but palpable. INT D/C'd, telemetry D/C'd, personal belongings packed and sent home with patient. D/C to home
via wc accompanied by staff.
--- NOTE | 2024-12-19 09:36 | W.HF.CON ---
Heart Failure
- LV Function
Left ventricular function study result: LV Ejection fraction </= 35%
Ejection Fraction Percentage: 20-25
- ARNI
Patient already on ARNI: No
Heart Failure ARNI Contraindication: Hypotension
- ACEI/ARB
Patient already on ACEI/ARB: No
Heart Failure ACEI/ARB Contraindication: Hypotension
- Beta Filemon
Patient already on Evidence Based Beta Filemon: Yes
- Mineralocorticord Receptor Antagonist
Patient already on MRA: No
Heart Failure MRA Contraindication: Hypotension
- SGLT-2 Inhibitor
Patient already on SGLT-2 Inhibitor: Yes
- Afib Anticoagulation
Patient already on Anticoagulation for Afib: Yes
- NYHA CHF Classification
NYHA CHF Classification Level: Class III - Symptoms w/ min exertion, interferes w/ nml daily activity
- ACC/AHA Stage
ACC/AHA Stage: Stage C: Symptomatic Heart Failure
== END 2024-12-18 12:12 | disposition home or self-care (01) | DRG 273 ==
LOC: IVU 02:26
PROVIDERS: Internal Medicine; Internal Medicine Cardiovascular Disease; Nurse Practitioner; Nurse Practitioner Family; Physician Assistant; Radiology Diagnostic Radiology; Radiology Vascular & Interventional Radiology; Registered Nurse; Specialist; Student in an Organized Health Care Education/Training Program; ADMITTING PHYSICIAN Internal Medicine; ATTENDING PHYSICIAN Hospitalist; CONSULT PHYSICIAN Internal Medicine; CONSULT PHYSICIAN Internal Medicine Cardiovascular Disease; EMERGENCY PHYSICIAN Emergency Medicine; FAMILY PHYSICIAN Internal Medicine Geriatric Medicine
PROC: 5A2204Z Restoration of Cardiac Rhythm, Single (ICD-10-PCS; 2024-12-07)
PROC: 02K83ZZ Map Conduction Mechanism, Percutaneous Approach (ICD-10-PCS; 2024-12-12)
PROC: 02583ZF Destruction of Conduction Mechanism using Irreversible Electroporation, Percutaneous Approach (ICD-10-PCS; 2024-12-12)
PROC: 4A023FZ Measurement of Cardiac Rhythm, Percutaneous Approach (ICD-10-PCS; 2024-12-12)
PROC: 4A0234Z Measurement of Cardiac Electrical Activity, Percutaneous Approach (ICD-10-PCS; 2024-12-12)
PROC: 0W993ZZ Drainage of Right Pleural Cavity, Percutaneous Approach (ICD-10-PCS; 2024-12-14)
PROC: 0W9B3ZZ Drainage of Left Pleural Cavity, Percutaneous Approach (ICD-10-PCS; 2024-12-17)
DX: I48.19 Other persistent atrial fibrillation (principal); I50.23 Acute on chronic systolic (congestive) heart failure; N17.9 Acute kidney failure, unspecified; I5A Non-ischemic myocardial injury (non-traumatic); E87.1 Hypo-osmolality and hyponatremia; J91.8 Pleural effusion in other conditions classified elsewhere; I11.0 Hypertensive heart disease with heart failure; I48.3 Typical atrial flutter; I47.19 Other supraventricular tachycardia; I42.8 Other cardiomyopathies; I44.7 Left bundle-branch block, unspecified; G47.33 Obstructive sleep apnea (adult) (pediatric); I08.0 Rheumatic disorders of both mitral and aortic valves; E78.00 Pure hypercholesterolemia, unspecified; D72.829 Elevated white blood cell count, unspecified; E87.6 Hypokalemia; I95.9 Hypotension, unspecified; D69.6 Thrombocytopenia, unspecified; R94.6 Abnormal results of thyroid function studies; R94.31 Abnormal electrocardiogram [ECG] [EKG]; Z79.01 Long term (current) use of anticoagulants; Z85.46 Personal history of malignant neoplasm of prostate; Z82.49 Family history of ischemic heart disease and other diseases of the circulatory system
CPT/HCPCS: 32555; 71045; 76604; 76775; 80048; 80053; 81003; 81015; 82570; 83615; 83735; 83880; 83935; 84100; 84155; 84156; 84157; 84300; 84439; 84443; 84484; 85025; 85027; 85347; 87086; 92960; 93005; 93308; 93321; 93325; 93655; 93656; 93657; 96365; 96366; 96375; 99291; C1730; C1732; C1733; C1766; C1769; C1894